=== PATIENT | female | born 1930 | race Caucasian/White ===

== ENCOUNTER 2017-05-28 14:06 | Emergency (ER) | payer MEDICARE, BC ==
[2017-05-28 15:13] LABS: #Basophils 0.1 thou/uL (0.0-0.2); #Eosinphils 0.3 thou/uL (0.0-0.7); #Lymphocytes 0.7 thou/uL (1.20-3.40); #Monocytes 0.8 thou/uL (0.11-0.59); #Neutrophils 6.8 thou/uL (1.40-6.50); %Basophils 1.3 % (0.0-1.0); %Eosinophils 3.5 % (0.0-10.0); %Lymphocytes 8.4 % (21.0-51.0); %Monocytes 8.6 % (0.0-10.0); Hematocrit 32.6 % (36.0-47.0); Mean Platelet Volume 5.9 fL (7.4-10.4); Red Blood Cell (RBC) Count 3.23 mill/uL (4.20-5.40); White Blood Cell (WBC) Count 8.7 thou/uL (4.8-10.8)
--- NOTE | 2017-05-28 15:23 | RAD ---
AP VIEW CHEST: Date: 05/28/17 HISTORY: Dyspnea. FINDINGS: Comparison made to previous exam from 10/18/16. AP view of chest demonstrates sternotomy wires. There is a prosthetic cardiac valve seen. A small rig ht-sided pleural effusion is seen. There is a moderate to large left-sided pleural effusion. IMPRESSION: Interval development of moderate to large left-sided pleural effusion and tiny right-sided pleural ef fusion. POS: [facility]
[2017-05-28 15:27] LABS: PTT 36.9 SEC (22.9-36.1); Prothrombin Time 21.4 SEC (12.0-14.7)
[2017-05-28 15:31] LABS: Lactic Acid - Sepsis 1.8 mmol/L (0.5-2.2)
[2017-05-28 15:36] LABS: ALT (SGPT) 15 U/L (8-55); AST (SGOT) 29 U/L (5-34); Alkaline Phosphatase 140 U/L (40-150); Anion Gap 11 mmol/L (10-20); BUN (Urea Nitrogen) 17 mg/dL (9.8-20.1); Bilirubin, Total 1.1 mg/dL (0.2-1.2); CK (CPK) 37 U/L (29-168); Calc. Creatinine Clearance 0 mL/min (70-130); Calcium 8.5 mg/dL (7.8-10.44); Carbon Dioxide 29 mmol/L (23-31); Chloride 102 mmol/L (98-107); Estimated GFR-MDRD 73; Globulin 3.2 g/dL (2.4-3.5); Lipase 31 U/L (8-78)
[2017-05-28 15:39] LABS: Troponin I 0.101 ng/mL (< 0.028)
[2017-05-28] MEDS ORDERED: Lidocaine 1% w/Epinephrine 1:100K 20 ML VIAL ONE (15:44)
[2017-05-28] MEDS ORDERED: Acetaminophen 325 MG TAB PO PRN (15:53)
[2017-05-28 16:11] LABS: Mode NC; Modified Allen's Test POSITIVE; Oxyhemoglobin 95.1 % (94.0-97.0); Sodium 137 mmol/L (135-148); Vent NO
--- NOTE | 2017-05-28 16:48 | CON ---
DATE OF EMERGENCY ROOM ASSESSMENT: 05/28/2017 PRIMARY CARE PHYSICIAN: Kristi Hicks M.D. CHIEF COMPLAINT: Shortness of breath. HISTORY OF PRESENT ILLNESS: Ms. Krishna is a pleasant 86-year-old lady who was seen at [facility] on 05/28/2017. She underwent aortic valve replacement on 05/04/2017 in [place]. Following the procedure, she was dis charged to [facility] in [place]. There, she was initially doing well, but subsequentl y started needing oxygen. Initially she was using oxygen on an as needed basis. Over the last coupl e of days, she has been hypoxic. Her oxygen saturations were reportedly in the 80s and she was there fore sent to the emergency room. She reports shortness of breath with exertion. She denies cough. She denies any chest pain. She de nies any nausea, vomiting, diarrhea, or abdominal pain. REVIEW OF SYSTEMS: The following complete review of systems was negative, unless otherwise mentioned in the HPI or below: Constitutional: Weight loss or gain, sense of well-being, ability to conduct usual activities, exerc ise tolerance. Skin/Breast: Rash, itching, changes in hair growth or loss, nail changes, breast lumps, tenderness, swelling, nipple discharge. Eyes: Vision, double vision, tearing, blind spots, pain. ENT/Mouth: Headaches (location, time of onset, duration, precipitating factors), vertigo, lightheade dness, injury. Vision, double vision, tearing, blind spots, pain, nose bleeding, colds, obstruction, discharge, dental difficulties, gingival bleeding, dentures, neck stiffness, pain, tenderness, masses in thyroid or other areas Cardiovascular: Precordial pain, substernal distress, palpitations, syncope, dyspnea on exertion, or thopnea, nocturnal paroxysmal dyspnea, edema, cyanosis, hypertension, heart murmurs, varicosities, ph lebitis, claudication. Respiratory: Pain, shortness of breath, wheezing, stridor, cough, hemoptysis, fever or night sweats Gastrointestinal: Poor appetite, dysphagia, indigestion, abdominal pain, heartburn, eructation, naus ea, vomiting, hematemesis, jaundice, constipation, or diarrhea, abnormal stools (sathish-colored, tarry, bloody, greasy, foul smelling), flatulence, hemorrhoids, recent changes in bowel habits. Genitourinary: Urgency, frequency, dysuria, nocturia, hematuria, polyuria, oliguria, unusual (or blade nge in) color of urine, stones, hesitancy, change in size of stream, dribbling, acute retention or in continence, libido, potency. Musculoskeletal: Pain, swelling, redness or heat of muscles or joints, limitation, of motion, muscul ar weakness, atrophy, cramps. Neurologic/Psychiatric: Convulsions, paralyses, tremor, incoordination, paraesthesias, difficulties with memory of speech, sensory or motor disturbances, or muscular coordination (ataxia, tremor), emot ional problems, anxiety, depression, previous psychiatric care, unusual perceptions, hallucinations. Allergy/Immunologic: Skin rash, anemia, bleeding tendency, polydipsia, polyuria, intolerance to heat or cold. 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 PAST SURGICAL HISTORY: Significant for aortic valve replacement, coronary artery bypass graft, right upper lobectomy, breast biopsy, hysterectomy, polypectomy via colonoscopy, supraventricular tachycar marianela ablation and right total hip replacement. ALLERGIES: Cough with POWER INHIBITORS, CODEINE, TRAMADOL. SOCIAL HISTORY: The patient does not smoke, drink alcohol or use recreational drugs. She used to li ve at home prior to the surgery, but is now at [facility]. FAMILY HISTORY: Significant for heart disease in several family members. CODE STATUS: I discussed her code status. She is DNR. CURRENT MEDICATIONS: Include atorvastatin 80 mg daily, warfarin as directed, hydroxyurea 500 mg 2 ti mes a week, folic acid 0.8 mg daily, Zetia 10 mg daily, metoprolol tartrate 12.5 mg 2 times a day, as pirin 81 mg daily, ferrous sulfate 325 mg 2 times a day, and acetaminophen p.r.n. PHYSICAL EXAMINATION: GENERAL: On examination, Ms. Krishna is awake and alert, not in acute distress. VITAL SIGNS: Blood pressure is 122/66, pulse is 85. She is breathing at rate of 19 and saturating 9 9% on 3 liters of oxygen. She is afebrile. She appears frail. EYES: No scleral icterus. No conjunctival pallor. ENT: Moist mucosal membranes, no oropharyngeal erythema or exudates. NECK: Supple, nontender, normal range of movement. Trachea is midline. RESPIRATORY: Accessory muscles of breathing are not active. Chest wall movements are symmetric bila terally. LUNGS: Examination shows absent breath sounds at the left base. CARDIOVASCULAR: S1 and S2 are heard, irregular and tachycardic. Peripheral pulses palpable. No car otid bruit, no pericardial rub. ABDOMEN: Soft, nontender, bowel sounds are heard. No hepatomegaly, no splenomegaly. NEUROLOGIC: Cranial nerves II-XII intact. Deep tendon reflexes are 2+. MUSCULOSKELETAL: Power is 5/5 in all 4 extremities, normal range of movement at all major extremity joints. SKIN: Surgical site is healing well. No rashes or subcutaneous nodules. LYMPHATICS: No cervical lymphadenopathy. PSYCHIATRIC: Normal mood, normal affect, patient is oriented to person, place, and time. IMAGING DATA AND LABORATORY DATA: Ms. Krishna's labs and investigations were reviewed. I reviewed h er electrocardiogram, which shows atrial fibrillation with rapid ventricular response. I also review ed her chest x-ray, which shows large left pleural effusion. Laboratory investigation show macrocyti c anemia with hemoglobin of 10.4, last known hemoglobin 14.9 on 03/14/2017, elevated platelet count o f 504,000, normal white count, INR 1.8, decreased albumin of 2.8, otherwise unremarkable comprehensiv e metabolic profile, indeterminate troponin I of 0.101 and elevated BNP of 850.9 ASSESSMENT AND PLAN: Ms. Krishna is a pleasant 86-year-old lady who was seen at [facility] on 05/28/2017. Her problem list includes: 1. Hypoxia: Most likely secondary to large left-sided pleural effusion. 2. Pleural effusion: Pulmonology Service has been consulted by emergency room physician. Plan is f or thoracentesis in the emergency room. 3. Atrial fibrillation with rapid ventricular response. The patient has received intravenous Cardiz em. I will consult Cardiology Service for their opinion and help with further management regarding t his issue as well as regarding pleural effusion, since this could be Nader syndrome. 4. Hypertension: Monitor vital signs and titrate antihypertensives as needed. 5. Coronary artery disease: Appears stable. Many thanks for allowing me to participate in your patient's care. Please feel free to contact me wi th any questions or concerns. LEVEL OF RISK: High. LEVEL OF COMPLEXITY: High.
[2017-05-28] MEDS ORDERED: Warfarin Sodium 1.25 MG HALF.TAB PO SCH (17:00)
[2017-05-28 18:09] LABS: Fluid, Protein 2.5 g/dL (Not Available)
--- NOTE | 2017-05-29 04:56 | CON ---
DATE OF CONSULTATION: 05/28/2017 HISTORY OF PRESENT ILLNESS: Ms. Krishna is an 86-year-old female who recently underwent aortic valve replacement per the family and a mitral valve ring repair. There are 3 daughters in the room that p rovided the majority of the history. She apparently had ultrasound guided thoracentesis after the pr ocedure. The daughter showed me a picture of bloody pericardial fluid that looks like 600-700 mL. She presented with shortness of breath with several days progression. She is anticoagulated with an INR of 1.8. She originally was scheduled for a TAVR evaluation, but she ended up undergoing aortic valve replacem ent. PAST MEDICAL HISTORY: 1. Remarkable for having stage I lung cancer that was an incidental finding 6 years ago, it has been resected by Dr. Pickett. She is felt to be a surgical cure. 2. History of coronary disease followed by Dr. Padilla. 3. History of bypass surgery in the past with 3 of 5 grafts being obtained per Dr. Padilla's note fr om 10/2016. They did not bypass her when she had her operation in [place]. 4. History of hepatitis C. 5. History of hypertension. 6. History of lipid disorder. 7. History of atrial fibrillation and SVT. ALLERGIES: She reports an intolerance to POWER INHIBITORS, CODEINE and TRAMADOL. SOCIAL HISTORY: She is nonsmoker, nondrinker. She has a distant history of tobacco. FAMILY HISTORY: Positive for coronary disease. No history of lung disease at an early age. REVIEW OF SYSTEMS: Only remarkable for shortness of breath, that has only been in the last 24 hours to any degree. Prior to that, she now admits that she was having more shortness of breath, but did n ot want to admit it, thought it would just pass. GENERAL: She is very pleasant, in no distress. VITAL SIGNS: Vital signs in the emergency room were stable. Respiratory rate was in the teens to lo w 20s. HEENT: Pupils are equal. Sclerae is anicteric. She is thin. CHEST: Her sternal incision appears to be healing. She has no cervical lymph nodes. Her left base is dull to percussion [address] She has clear lung mcdonald, otherwise. HEART: Regular rhythm. She has audible S1 and S2. ABDOMEN: Soft and nontender. EXTREMITIES: Without asymmetry. LABORATORY DATA: White count 8.7, hemoglobin 10.4, platelets 504,000. Sodium 137, potassium 4.8, ch loride 102, bicarb 29, BUN 17, creatinine 0.75. Review of chest radiograph shows a left effusion, pH 7.44, pO2 93. IMPRESSION: Post-pericardotomy effusion. Since this recurred. I would consider placing her on ster oids. She will go home on 40 mg a day for a week and then go to 20 mg a day. She sees Dr. Columba romero. She can follow up with him in 2 weeks with a chest radiograph. PLAN: Thoracentesis today, risk of bleeding, infection, lung collapse, and least likely were e xplained. Greater than 50% of the time was spent conferring with the nurse and the family at bedside as well as reviewing records and radiographs. This is a 50 minute consultation, independent of procedure performed.
--- NOTE | 2017-05-29 04:59 | OP ---
DATE OF PROCEDURE: 05/28/2017 PROCEDURE: Thoracentesis. MANAGER CLINICAL RESEARCH: Eugenio Aburto M.D. INDICATION: Postop pleural effusion after aortic valve replacement, left posterior hemithorax was cl eansed with chlorhexidine. 8 mL of 1% lidocaine was used to anesthetize the skin and the pleura. Fl uid was localized with a 22 gauge needle. A small incision was made with a #11 blade. An 8 Croatian catheter was inserted in the pleural space. 800 mL of serosanguineous pleural fluid was evacuated from the left pleural space. Pleural fluid glu cose was 110, protein 2.5, LDH 201. Fluid was sent for culture. Fluid was not sent for cytology, since this is a postoperative effusion that was not present on CT scan earlier this year. She will follow up with Dr. Waterman in 2 weeks. There is a possibility given the low protein and LDH that this effusion is related to an ongoing mitr al valve leak. She had her aortic valve replaced, but only mitral repair, so this may be contributin g to the effusion. If this recurs despite of the steroids that would be my concern and transthoracic or transesophageal echo probably needs to be performed. She had no evidence of pulmonary edema in t he other lung and her right lung was clear on exam as well.
[2017-05-29] MEDS ORDERED: Warfarin Sodium 2.5 MG TAB PO SCH (17:00)
== END 2017-05-28 18:56 | disposition home or self-care (01) ==
LOC: ERS 14:06
DX: J90 Pleural effusion, not elsewhere classified (principal); R09.02 Hypoxemia; I25.10 Atherosclerotic heart disease of native coronary artery without angina pectoris; I48.91 Unspecified atrial fibrillation; E78.5 Hyperlipidemia, unspecified; I10 Essential (primary) hypertension; Z85.118 Personal history of other malignant neoplasm of bronchus and lung; Z79.01 Long term (current) use of anticoagulants; Z79.82 Long term (current) use of aspirin; Z79.899 Other long term (current) drug therapy
CPT/HCPCS: 32554; 36415; 71010; 80053; 82553; 82805; 82945; 83605; 83615; 83690; 83880; 84157; 84484; 85025; 85610; 85730; 87040; 87070; 87205; 93005; 96374; J2001

== ENCOUNTER 2017-06-02 19:02 | Inpatient (IN) | payer MEDICARE, BC ==
[2017-06-02 19:43] LABS: #Eosinphils 0.1 thou/uL (0.0-0.7); #Lymphocytes 1.1 thou/uL (1.20-3.40); #Monocytes 1.4 thou/uL (0.11-0.59); %Basophils 0.1 % (0.0-1.0); %Lymphocytes 8.9 % (21.0-51.0); %Monocytes 11.1 % (0.0-10.0); %Neutrophils 78.9 % (42.0-75.0); Hemoglobin 10.9 g/dL (12.0-16.0); Mean Corpuscular HGB CONC 31.1 g/dL (32.0-36.0); Mean Corpuscular Hemoglobin 31.3 pg (27.0-31.0); Mean Platelet Volume 5.8 fL (7.4-10.4); Platelet Count 573 thou/uL (130-400); RBC Distribution Width 14.7 % (11.5-14.5); Red Blood Cell (RBC) Count 3.46 mill/uL (4.20-5.40); White Blood Cell (WBC) Count 12.7 thou/uL (4.8-10.8)
[2017-06-02 20:00] LABS: ALT (SGPT) 33 U/L (8-55); AST (SGOT) 43 U/L (5-34); Albumin 2.9 g/dL (3.4-4.8); Alkaline Phosphatase 147 U/L (40-150); Anion Gap 13 mmol/L (10-20); BUN (Urea Nitrogen) 25 mg/dL (9.8-20.1); Bilirubin, Total 0.7 mg/dL (0.2-1.2); CK (CPK) 62 U/L (29-168); Calc. Creatinine Clearance 0 mL/min (70-130); Calcium 8.6 mg/dL (7.8-10.44); Carbon Dioxide 26 mmol/L (23-31); Chloride 102 mmol/L (98-107); Estimated GFR-MDRD 71; Globulin 3.3 g/dL (2.4-3.5); Glucose 109 mg/dL (83-110); Lipase 50 U/L (8-78); Potassium 4.3 mmol/L (3.5-5.1); Protein, Total 6.2 g/dL (6.0-8.3); Sodium 137 mmol/L (136-145)
[2017-06-02 20:04] LABS: CKMB 2.3 ng/mL (0-6.6); Troponin I 0.061 ng/mL (< 0.028)
--- NOTE | 2017-06-02 22:01 | RAD ---
AP VIEW OF THE CHEST 05/23/17 INDICATION: History of difficulty breathing with atrial fibrillation and hypertension and hypoxia. COMPARISON: Prior exam dated 05/28/17. FINDINGS: There is persistent cardiomegaly and pulmonary vascular congestion. Left sided pleural effusion is de creased in size, now moderate in severity. There is a persistent small right pleural effusion. Mild i nterstitial edema is again seen bilaterally. Valvular prosthesis and sternotomy changes are similar. No pneumothorax is evident. IMPRESSION: Persistent changes of CHF or volume overload with some improvement in the size of a left sided pleura l effusion when compared to the most recent comparison dated 05/28/17. POS: [facility]
[2017-06-02] MEDS ORDERED: Furosemide 40 MG/4 ML VIAL ONE (23:07)
[2017-06-03] MEDS ORDERED: Diltiazem HCl SR 60 mg Capsule PO SCH (03:00)
[2017-06-03 04:11] VITALS: BMI 22.8
[2017-06-03] MEDS ORDERED: Artificial Tears 18 DROP/0.9 ML EA EYE PRN (08:26)
[2017-06-03] MEDS ORDERED: Ondansetron ODT 4 MG TAB PO PRN (08:26)
[2017-06-03] MEDS ORDERED: Senokot 8.6 MG TAB PO PRN (08:26)
[2017-06-03] MEDS ORDERED: Ondansetron HCl/PF 4 MG/2 ML Vial IVP PRN (08:26)
[2017-06-03] MEDS ORDERED: Loratadine 10 MG TAB PO PRN (08:26)
[2017-06-03] MEDS ORDERED: Sodium Chloride 0.65% Nasal 44 ML BOT EA NARE PRN (08:26)
[2017-06-03] MEDS ORDERED: Acetaminophen 325 MG TAB PO PRN (08:26)
[2017-06-03] MEDS ORDERED: Loperamide HCl 2 MG CAP PO PRN (08:26)
[2017-06-03] MEDS ORDERED: Chloraseptic Spray 180 ml Bottle PO PRN (08:26)
[2017-06-03] MEDS ORDERED: Milk Of Magnesia 30 ML UDCUP PO PRN (08:26)
[2017-06-03] MEDS ORDERED: Eucerin (Mineral Oil/Petrolatum,White) 30 gm Jar TOP PRN (08:26)
[2017-06-03] MEDS ORDERED: Labetalol HCl 100 MG/20 ML VIAL SLOW IVP PRN (08:26)
[2017-06-03] MEDS ORDERED: Mag-Al 1200 mg/1200 mg/30 ML UDCUP PO PRN (08:26)
[2017-06-03] MEDS ORDERED: cefTRIAXone\\ROCEPHIN 1 GM in Sodium Chloride 0.9% 100 ML IVPB SCH (08:30)
[2017-06-03] MEDS ORDERED: Metoprolol Tartrate 25 MG TAB PO SCH (09:00)
[2017-06-03] MEDS: cefTRIAXone\\ROCEPHIN 1 GM, Syringe 0.4 ML in Sterile Water 9.6 ML SLOW IVP SCH (10:30)
[2017-06-03] MEDS: Cholecalciferol (Vitamin D3) 400 UNITS TAB PO SCH (10:30)
[2017-06-03] MEDS: guaiFENesin ER 600 MG TAB PO SCH ×2 (10:31→20:58)
[2017-06-03] MEDS: Saccharomyces boulardii 250 MG CAP PO SCH (10:31)
[2017-06-03] MEDS: Potassium Chloride 20 MEQ TAB PO SCH (10:31)
[2017-06-03] MEDS: Folic Acid 1 MG TAB PO SCH (10:31)
[2017-06-03] MEDS: Famotidine 20 MG TAB PO SCH ×2 (10:31→20:58)
[2017-06-03] MEDS: Calcium Carbonate + Vit D 1 TAB PO SCH (10:31)
[2017-06-03] MEDS: Cyanocobalamin (Vitamin B-12) 1,000 MCG TAB PO SCH (10:31)
[2017-06-03] MEDS: Ferrous Sulfate 325 MG TAB PO SCH ×2 (10:32→20:57)
[2017-06-03] MEDS: Aspirin 81 mg Enteric Coated Tablet PO SCH (10:32)
[2017-06-03] MEDS: Diltiazem 125 MG in Sodium Chloride 0.9% 100 ML IVPB SCH (11:05)
--- NOTE | 2017-06-03 11:16 | HP ---
PRIMARY CARE PHYSICIAN: Dr. Hicks. REASON FOR ADMISSION: Acute onset of shortness of breath at assisted. HISTORY OF PRESENT ILLNESS: An 86-year-old female who has underlying history of coronary artery dise ase requiring CABG as well as aortic valve replacement on chronic anticoagulation who lives at the [facility]. Patient was recently admitted in our hospital and she was discharged to [facility] on 05/28/2017. It seems like during previous admission, patient required thoracentesis. The patient was doing well up until last night and all of a sudden, she had shortness of breath. She was not able to take deep breath and she was struggling with breathing. She was hypoxic and required ox ygen. Patient was given Lasix 80 mg p.o. at assisted prior to arrival. Patient required 2 liter nasal cannula oxygen and her oxygen saturation remained normal on the route. This patient has incre asing lower extremity edema for the last 2-3 weeks, which is gradually getting worse. Patient does h ave orthopnea. She does have cough productive of yellowish white sputum. She was also feeling palpi tations and dizziness. Today, the patient was found with atrial fibrillation with RVR. She was afebrile, but she was hypert ensive. Her routine blood tests showed elevated BNP, which was more than elevated from baseline and troponin was indeterminant range. She denies any UTI symptoms. She denies any constipation, diarrhe a, melena, hematochezia. She denies any sore throat. She denies any runny nose. She denies any flu -like illness. This patient has out of hospital DNR order at the [facility] and I confirmed with the pat ient that she wanted to continue DNR order while in hospital as well. When I saw this patient, at th at time, patient was in atrial fibrillation with RVR. She was still short of breath. CURRENT HOME MEDICATIONS: Tylenol 1 gram p.o. q.6 hours p.r.n., aspirin 81 mg p.o. daily, Lipitor 80 mg p.o. at bedtime, calcium with vitamin D 1 tablet p.o. daily, vitamin D3 400 units p.o. daily, Zet ia 10 mg p.o. daily, Ferrous sulfate 325 mg p.o. daily, folic acid 0.8 mg p.o. daily, hydroxyurea 500 mg p.o. on Monday, Monday, metoprolol 12.5 mg twice daily, potassium chloride 20 mEq p.o. daily, prednisone 20 mg p.o. daily, Florastor 250 mg p.o. daily, warfarin 2 mg p.o. daily. PAST MEDICAL HISTORY: Coronary artery disease required CABG. The patient is following Dr. Carrera. Her last cardiac catheterization was in 06/2016. which showed all grafts were patent. She does hav e a history of left main and three-vessel coronary artery disease and she also has underlying ventric ular dysfunction and severe aortic regurgitation and mitral regurgitation, history of chronic hepatit is C, history of adenocarcinoma of lung and required resection of lobe, hypertension, dyslipidemia, p aroxysmal atrial fibrillation on chronic anticoagulation with warfarin, history of SVT required ablat ion, lower extremity chronic venous insufficiency. PAST SURGICAL HISTORY: CABG, right upper lobe lobectomy, breast biopsy, hysterectomy, polypectomy wi th colonoscopy, ablation for SVT, right total hip replacement. ALLERGIES: Patient is allergic to POWER INHIBITOR, CODEINE and TRAMADOL. SOCIAL HISTORY: Patient currently lives at [facility]. No history of tobacco, alcohol o r illicit drug abuse. FAMILY HISTORY: Mother has history of coronary artery disease. No strong family history of cancer o r stroke. REVIEW OF SYSTEMS: The following complete review of systems was negative, unless otherwise mentioned in the HPI or below: Constitutional: Weight loss or gain, ability to conduct usual activities. Skin: Rash, itching. Eyes: Double vision, pain. ENT/Mouth: Nose bleeding, neck stiffness, pain, tenderness. Cardiovascular: Palpitations, dyspnea on exertion, orthopnea. Respiratory: Shortness of breath, wheezing, cough, hemoptysis, fever or night sweats. Gastrointestinal: Poor appetite, abdominal pain, heartburn, nausea, vomiting, constipation, or diarr hea. Genitourinary: Urgency, frequency, dysuria, nocturia. Musculoskeletal: Pain, swelling. Neurologic/Psychiatric: Anxiety, depression. Allergy/Immunologic: Skin rash, bleeding tendency. Please see my HPI for pertinent positives and negatives. All other review of systems reviewed and ne gative except as mentioned in the HPI. PAST PSYCHIATRIC HISTORY: Reviewed and negative. EMERGENCY ROOM COURSE: Patient is given Cardizem 60 mg p.o. to Cardizem 5 mg IV push, then 10 mg IV push and then Lasix 40 mg IV push was given. PHYSICAL EXAMINATION: VITAL SIGNS: Currently, blood pressure 128/84, pulse 120-130 variable, respiratory rate 24, temperat ure 98.5, saturation 98% on 2 liter oxygen, weight 57.1 kilograms. GENERAL: Patient is currently alert, awake, appears short of breath, no obvious acute distress. HEAD: Normocephalic, atraumatic. EYES: Pupils round, reactive to light. Extraocular muscles intact. ENT: Oropharynx within normal limits. Moist mucous membranes. No oral lesions. No pharyngeal eryt antwon or exudate. NECK: Supple, no thyromegaly, no carotid bruit, slightly elevated JVD. LUNGS: Bibasilar rales, air entry reduced noted. CARDIAC: S1, S2 irregularly irregular. Systolic murmur present in parasternal area and apex. No ga llop, no rub. ABDOMEN: Soft, bowel sounds present, nontender, nondistended. No organomegaly, no mass, no suprapub ic tenderness. BACK: Unremarkable, no CVA tenderness. EXTREMITIES: Upper extremity, passive movement of all joints are normal. Lower extremity, bilateral +2 pitting edema noted. Good peripheral pulsation. SKIN: No skin rash. HEMATOLOGICAL: No lymphadenopathy. PSYCHIATRIC: Normal affect. NEUROLOGIC: Nonfocal examination. SIGNIFICANT LABORATORY DATA AND IMAGIN. EKG showing atrial fibrillation with rapid ventricular response, nonspecific ST-T changes. Chest x-ray showing bilateral small pleural effusion and interstitial edema noted bilaterally. 2. CBC: WBC 12.7, hemoglobin 10.9, MCV 101.0, platelet 573. BMP shows sodium 137, potassium 4.3, c hloride 102, carbon dioxide 26, BUN 25, creatinine 0.77, glucose 109, calcium 8.6. 3. LFT: AST 43, ALT 33, alkaline phosphatase 147, albumin 2.9, lipase 50, CK-MB 2.3, troponin I 0.0 61, BNP 1154. ASSESSMENT AND PLAN: 1. Acute on chronic systolic and diastolic congestive heart failure exacerbation. This patient has dyspnea, orthopnea, edema of lower extremity, elevated BNP and chest x-ray finding of interstitial ed narinder and pleural effusion. She has most recent echocardiography showed EF 45% and she has underlying valvular heart disease. She is not a candidate for any valve replacement. At this point, her precip itation of congestive heart failure is due to valvular heart disease and uncontrolled hypertension. Patient will require admission. She will be treated with Lasix 40 mg IV b.i.d. Patient is requestin g Kathleen catheter, so we will place Kathleen catheter. We will monitor input and output chart, daily rick t. Cardiac rehabilitation will be consulted. Cardiology will be consulted. We will monitor on te lemetry floor. 2. Atrial fibrillation with rapid ventricular response. We will start Cardizem drip and titrate Car dizem drip as needed. We will continue chronic anticoagulation with warfarin. 3. Chronic anticoagulation with warfarin. We will monitor PT/INR on daily basis and we will titrate the warfarin dose based on INR. 4. Severe mitral regurgitation, moderate aortic regurgitation and tricuspid regurgitation based on p rior echocardiography. This patient has been evaluated for valve replacement at [place], but the [facility] ent is not a good candidate for any valve replacement and because of that, this patient is at [facility] for recurrent admission for congestive heart failure exacerbation. 5. Microcytic anemia, likely due to hydroxyurea. We will continue with folic acid as per home dosag e and we will add vitamin B12 therapy as well. We will continue hydroxyurea 500 mg twice a week. 6. Coronary artery disease. We will continue aspirin 81 mg p.o. daily, Lipitor 80 mg p.o. at bedtim e, Zetia 10 mg p.o. at bedtime, metoprolol 12.5 mg twice daily. 7. Elevated troponin, likely due to demand ischemia. 8. Cough with sputum, suspecting from underlying bronchitis. At this point, we will check for flu s creen and I will give her empiric Rocephin 1 gram q.24 hours while in hospital and provide DuoNeb the rapy q.6 hours and we will also add Mucinex 600 mg twice daily. 9. Deep venous thrombosis prophylaxis. The patient is already on warfarin therapy. 10. Gastrointestinal prophylaxis. Pepcid 20 mg p.o. b.i.d. 11. Code status. I have confirmed the DNR status with the patient and the patient has out of hospit al DNR. Disposition and plan based on clinical course. ADDITIONAL INFORMATION: This patient is not on POWER inhibitor and ARB in view of systolic heart failu re, because of the patient's allergy to POWER INHIBITORS. During this admission, we will change her me toprolol to Coreg 3.125 mg twice daily and if blood pressure permits, then we will also consider mina ng losartan if needed. Plan of care extensively discussed with the patient in detail.
[2017-06-03] MEDS ORDERED: Digoxin 0.5 MG/2 ML AMP SLOW IVP SCH ×2 (11:30→13:30)
--- NOTE | 2017-06-03 12:05 | CON ---
DATE OF CONSULTATION: 06/03/2017 REASON FOR CONSULTATION: Congestive heart failure. HISTORY OF PRESENT ILLNESS: Ms. Calles is a very pleasant 86-year-old patient of Dr. Carrera, who has recently undergone repeat surgery with aortic valve replacement and mitral valve repair, who was admitted to the hospital with difficulty breathing and congestive heart failure. Ms. Calles has a history of previous bypass surgery and severe aortic insufficiency. She ultimately underwent cardiac catheterization and then surgery in [place]. She says she has been having some dif ficulty breathing since then. She came to the hospital with increasing difficulty breathing on 05/28 and was treated at that time. She came back to the hospital with difficulty breathing today an d is receiving intravenous Lasix and beginning to feel better. The patient states she has been in atrial fibrillation, longstanding. No chest pain. She also had has increasing lower extremity edema. MEDICATIONS: At home, 1. Hydroxyurea. 2. Atorvastatin. 3. Zetia. 4. Iron. 5. Aspirin. 6. Metoprolol. 7. Warfarin. 8. Prednisone. 9. Potassium. ALLERGIES: TRAMADOL and CODEINE. REVIEW OF SYSTEMS: CONSTITUTIONAL: Positive for weakness and fatigue. VISION: No changes. HEARING: No changes. PULMONARY: Positive for shortness of breath and cough. CARDIAC: Positive for shortness of breath and cough. No chest pain. GASTROINTESTINAL: No nausea, vomiting, diarrhea. SKIN: No rashes. NEUROLOGIC: No unilateral weakness or numbness. PSYCHIATRIC: No unusual depression or anxiety. HEMATOLOGIC: No unusual bruising. GENITOURINARY: No burning with urination. MUSCULOSKELETAL: No unusual joint pains. PHYSICAL EXAMINATION: GENERAL: A pleasant elderly woman, in no distress. VITAL SIGNS: Blood pressure 166/83, pulse is 130 and it is irregular. EYES: Sclerae nonicteric. Mouth mucous membranes moist. NECK: Supple, no lymphadenopathy. LUNGS: Some rhonchi and some decreased breath sounds at the bases. CARDIOVASCULAR: She is tachycardic. Soft systolic murmur, left mid sternal border. No diastolic mu rmur, no S3. ABDOMEN: Soft, nontender. EXTREMITIES: No clubbing or cyanosis. There is moderate bilateral edema. SKIN: Warm and dry. PERTINENT LABORATORY: Hemoglobin is 10.9, creatinine is 0.77. Troponin 0.061. BNP 1154. The EKG shows atrial fibrillation with a rapid rate. ASSESSMENT: 1. Congestive heart failure, probably diastolic, acute on chronic. 2. Previous bypass surgery. 3. Recent aortic valve replacement, mitral valve repair. PLAN: 1. She is receiving intravenous diuretics. 2. We will add digoxin. 3. Continue Coumadin and check prothrombin time tomorrow morning. Further recommendations after hos pital course. Dr. Berry will see the patient tomorrow and then Dr. Carrera will resume care on [facility].
--- NOTE | 2017-06-03 13:28 | CON ---
DATE OF CONSULTATION: 06/03/2017 CONSULTING PHYSICIAN: Hospitalist group. REASON FOR CONSULTATION: Family request. HISTORY OF PRESENT ILLNESS: The patient is an 86-year-old female, who was brought to the hospital last night with increasing shortness of breath over 2-3 days prior to admission. She had been seen by my partner, Dr. Aburto. On [place], she had a pleural effusion on the left. She underwent a thoracentesis, which showed a transudate. She recently had open heart surgery with aortic valve replacement and mitral valve repair. She denies any chest pain. She has had no fever or chills. PAST MEDICAL HISTORY: 1. See above. Additionally, she has coronary artery disease, left ventricular dysfunction. 2. Chronic hepatitis C. 3. 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 4. Hypertension. 5. Hyperlipidemia. 6. Paroxysmal atrial fibrillation on long-term anticoagulation. 7. Supraventricular tachycardia. PAST SURGICAL HISTORY: 1. Coronary bypass grafting surgery. 2. Aortic valve replacement. 3. Mitral valve repair. 4. Right upper lobectomy. 5. Breast biopsy. 7. Hysterectomy. 8. Polypectomies. 9. Colonoscopy. 10. Right total hip replacement. ALLERGIES: POWER INHIBITORS, CODEINE and TRAMADOL. SOCIAL HISTORY: Does not smoke, does not consume alcohol, does not use illicit drugs. She lives in a fci. FAMILY MEDICAL HISTORY: Remarkable for coronary artery disease. REVIEW OF SYSTEMS: Twelve-point review of systems is negative with the following exceptions, she has shortness of breath, cough, and congestion. MEDICATIONS: Hydroxyurea, atorvastatin, Zetia, iron, aspirin, metoprolol, warfarin, prednisone and potassium. PHYSICAL EXAMINATION: VITAL SIGNS: Temperature 97.8, pulse 131, respirations 20, O2 sat 100%, blood pressure 166/83. GENERAL: She is in no distress. HEENT: Pupils react. Sclerae are anicteric. Oropharynx clear. NECK: No JVD. CARDIOVASCULAR: S1, S2 irregularly irregular and tachycardic. LUNGS: She has diminished breath sounds in both bases, somewhat greater on the left than the right. She has dullness to percussion on the bottom 1/4 of the left lung field. ABDOMEN: Soft, nontender, no hepatosplenomegaly. EXTREMITIES: No clubbing, cyanosis or edema. SKIN: Shows no lesions. NEUROLOGIC: Moves all 4 extremities. She is alert and oriented x3. LABORATORY DATA: White blood cell count 12.7, hematocrit 35 and platelet count 573. Sodium 137, potassium 4.3, chloride 102, CO2 26, BUN 25, creatinine 0.7, glucose 109. I reviewed her chest x-ray, it shows small left pleural effusion, small right pleural effusion, left pleural effusion, much better than 2 weeks ago. BNP level is 1154. ASSESSMENT: 1. Acute congestive heart failure -- systolic. 2. Chronic atrial fibrillation. 3. Pleural effusions. PLAN: The pleural effusions do not require thoracentesis at this time. She should continue with diuresis as you are doing with rate control the atrial fibrillation. No other recommendations at this time. 50 minutes are spent at the patient's bedside and on the patient's unit MTDD
[2017-06-03] MEDS: Furosemide 40 MG/4 ML VIAL SLOW IVP SCH (15:25)
[2017-06-03 16:50] LABS: Bilirubin Negative (Negative); Blood, Urine Negative (Negative); Clarity CLOUDY (Clear); Glucose, Urine (Dipstick) Negative (Negative); Leukocyte Negative (Negative); Nitrite Negative (Negative); Protein, Urine (Dipstick) 30 mg/dL (Neg-Trace); Specific Gravity, Urine 1.024 (1.002-1.036)
[2017-06-03 16:53] LABS: Bacteria/HPF None Seen HPF (None Seen); Pathc Cast-AUWi Flag 1.89 (0-2.49); RBC/HPF 0-3 HPF (0-3); WBC/HPF 0-3 HPF (0-3); Yeast-AUWi Flag 17.6 (0-25.0)
[2017-06-03 17:03] LABS: Crystals/HPF 1+ AMORPH URATES HPF (Negative); Hyaline Casts/LPF 0-3 HYALINE CAST LPF (0-3 Hyaline); Renal Epithelial None Seen HPF (0-3); Transitional Epithelial 0-3 HPF (0-3)
[2017-06-03] MEDS: Warfarin Sodium 2 MG TAB PO SCH (18:16)
[2017-06-03] MEDS: Carvedilol 3.125 MG TAB PO SCH (18:17)
[2017-06-03] MEDS: Atorvastatin Calcium 40 MG TAB PO SCH (20:57)
[2017-06-03] MEDS: Ezetimibe 10 MG TAB PO SCH (20:58)
[2017-06-04] MEDS: Diltiazem 125 MG in Sodium Chloride 0.9% 100 ML IVPB SCH (06:11)
[2017-06-04] MEDS: Furosemide 40 MG/4 ML VIAL SLOW IVP SCH ×2 (06:11→15:25)
[2017-06-04 06:40] LABS: INR-International Normal Ratio 1.6; Prothrombin Time 19.2 SEC (12.0-14.7)
[2017-06-04 06:55] LABS: ALT (SGPT) 18 U/L (8-55); AST (SGOT) 23 U/L (5-34); Albumin 2.2 g/dL (3.4-4.8); Alkaline Phosphatase 92 U/L (40-150); Anion Gap 11 mmol/L (10-20); BUN (Urea Nitrogen) 21 mg/dL (9.8-20.1); Bilirubin, Total 1.4 mg/dL (0.2-1.2); Calc. Creatinine Clearance 57 mL/min (70-130); Calcium 8.1 mg/dL (7.8-10.44); Carbon Dioxide 31 mmol/L (23-31); Chloride 96 mmol/L (98-107); Estimated GFR-MDRD 82; Globulin 2.5 g/dL (2.4-3.5); Glucose 92 mg/dL (83-110); Magnesium 1.8 mg/dL (1.6-2.6); Potassium 3.8 mmol/L (3.5-5.1); Protein, Total 4.7 g/dL (6.0-8.3); Sodium 134 mmol/L (136-145); Uric Acid 2.7 mg/dL (2.6-6.0)
[2017-06-04 06:56] LABS: CKMB 0.6 ng/mL (0-6.6); Troponin I 0.055 ng/mL (< 0.028)
[2017-06-04 08:00] LABS: Acanthocytes SLIGHT = 1-5 cells (100X) (None Seen); Band 2 % (5-11); Eosinophils 1 % (0-10); Hemoglobin 8.9 g/dL (12.0-16.0); Lymphocytes 4 % (21-51); MDiff Complete? YES; Mean Corpuscular HGB CONC 31.2 g/dL (32.0-36.0); Mean Corpuscular Hemoglobin 31.1 pg (27.0-31.0); Mean Corpuscular Volume 99.9 fl (81.0-99.0); Metamyelocyte 1 % (0-0); Monocytes 2 % (0-10); Neutrophil 90 % (42-75); PLT Morphology Comment Appears Adequate; Platelet Count 361 thou/uL (130-400); RBC Distribution Width 14.5 % (11.5-14.5); Red Blood Cell (RBC) Count 2.85 mill/uL (4.20-5.40); White Blood Cell (WBC) Count 12.7 thou/uL (4.8-10.8)
--- NOTE | 2017-06-04 09:42 | PDOC.PN ---
- Subjective Encounter Start Date: 06/04/17 Encounter Start Time: 07:10 -: old records requested/rev pt has cough with sputum, rate controlled, still has dyspnea, no fever - Objective Resuscitation Status: Resuscitation Status DNR:Do Not Resuscitate MAR Reviewed: Yes Vital Signs & Weight: Vital Signs (12 hours) Temp Pulse Resp BP Pulse Ox 06/04/17 07:27 89 20 96 06/04/17 04:00 98.0 F 75 18 124/60 98 06/04/17 00:00 98.3 F 83 20 125/62 97 06/03/17 23:52 96 Weight Weight 132 lb 4.8 oz I&O: 06/03/17 06/04/17 06/05/17 06:59 06:59 06:59 Intake Total 900 Output Total 1900 Balance -1000 Result Diagrams: 06/04/17 06:01 06/04/17 06:01 EKG Reviewed by me: Yes (afib) Phys Exam - Physical Examination Constitutional: NAD HEENT: PERRLA, moist MMs, sclera anicteric Neck: no JVD, supple Respiratory: no wheezing, no rhonchi basal rales and reduced air entry Cardiovascular: no rub, irregular SM+ Gastrointestinal: soft, non-tender, no distention, positive bowel sounds Musculoskeletal: no edema, pulses present Neurological: non-focal, moves all 4 limbs Lymphatic: no nodes Psychiatric: normal affect, A&O x 3 Skin: no rash, normal turgor Dx/Plan (1) Acute on chronic combined systolic and diastolic CHF (congestive heart failure) Code(s): I50.43 - ACUTE ON CHRONIC COMBINED SYSTOLIC AND DIASTOLIC HRT FAIL Status: Acute (2) Atrial fibrillation with RVR Code(s): I48.91 - UNSPECIFIED ATRIAL FIBRILLATION Status: Acute Comment: now rate controlled (3) Elevated troponin Code(s): R74.8 - ABNORMAL LEVELS OF OTHER SERUM ENZYMES Status: Acute Comment: demand ischemia (4) Aortic regurgitation Code(s): I35.1 - NONRHEUMATIC AORTIC (VALVE) INSUFFICIENCY Status: Chronic Comment: with recent h/o AVR (5) CAD (coronary artery disease) Code(s): I25.10 - ATHSCL HEART DISEASE OF [place] CORONARY ARTERY W/O ANG PCTRS Status: Chronic Comment: Chronic, stable (6) H/O aortic valve replacement Code(s): Z95.2 - PRESENCE OF PROSTHETIC HEART VALVE Status: Chronic (7) H/O mitral valve repair Code(s): Z98.890 - OTHER SPECIFIED POSTPROCEDURAL STATES Status: Chronic (8) HTN (hypertension) Code(s): I10 - ESSENTIAL (PRIMARY) HYPERTENSION Status: Chronic Qualifiers: (9) Hepatitis C Code(s): B19.20 - UNSPECIFIED VIRAL HEPATITIS C WITHOUT HEPATIC COMA Status: Chronic Qualifiers: (10) Hx of cancer of lung Code(s): Z85.118 - PERSONAL HISTORY OF MALIGNANT NEOPLASM OF BRONCHUS AND LUNG Status: Chronic (11) Hx of coronary artery bypass graft Status: Chronic (12) Macrocytic anemia Code(s): D53.9 - NUTRITIONAL ANEMIA, UNSPECIFIED Status: Chronic (13) Severe tricuspid regurgitation Code(s): I07.1 - RHEUMATIC TRICUSPID INSUFFICIENCY Status: Chronic Comment: (14) Physical deconditioning Code(s): R53.81 - OTHER MALAISE Status: Acute (15) Acute bronchitis Code(s): J20.9 - ACUTE BRONCHITIS, UNSPECIFIED Status: Acute - Plan cont current plan of care, plan discussed w/ family, continue antibiotics, PT/OT , home health care social worker, respiratory therapy * continue lasix for CHF * continue cardizem drip for afib * continue rocephin , duoneb for bronchitis * medication reviewed as below * symptomatic treatment * will adjust meds * cardiology and pulmonary following * discussed with daughter * will need to back to [facility] on discharge. * monitor INR and continue warfarin Review of Systems - Review of Systems Constitutional: weakness. negative: fever, chills, sweats, malaise, other Respiratory: Cough, SOB with Excertion, Sputum. negative: Dry, Shortness of Breath, Hemoptysis, Pleuritic Pain, Wheezing Cardiovascular: negative: chest pain, palpitations, orthopnea, paroxysmal nocturnal dyspnea, edema, light headedness, other Gastrointestinal: negative: Nausea, Vomiting, Abdominal Pain, Diarrhea, Constipation, Melena, Hematochezia, Other Genitourinary: negative: Dysuria, Frequency, Incontinence, Hematuria, Retention , Other Musculoskeletal: negative: Neck Pain, Shoulder Pain, Arm Pain, Back Pain, Hand Pain, Leg Pain, Foot Pain, Other Skin: negative: Rash, Lesions, Brett, Bruising, Other - Medications/Allergies Allergies/Adverse Reactions: Allergies Allergy/AdvReac Type Severity Reaction Status Date / Time tramadol Allergy Intermediate Verified 05/31/16 12:12 codeine Allergy Mild Emesis Verified 05/31/16 12:12 Medications: Current Medications Acetaminophen (Tylenol) 650 mg PO Q4H PRN PRN Reason: Headache/Fever or Pain Al Hydroxide/Mg Hydroxide (Maalox) 30 ml PO Q6H PRN PRN Reason: Heartburn or Indigestion Albuterol/Ipratropium (Duoneb) 3 ml NEB [id number] [facility] Last Admin: 06/04/17 07:27 Dose: 3 ml Artificial Tears (Tears Naturale) 0 drop EA EYE PRN PRN PRN Reason: Dry Eyes Aspirin (Ecotrin) 81 mg PO DAILY [facility] Last Admin: 06/03/17 10:32 Dose: 81 mg Atorvastatin Calcium (Lipitor) 80 mg PO [facility] Last Admin: 06/03/17 20:57 Dose: 80 mg Calcium/Vitamin D (Caltrate 600 + Vit D) 1 tab PO DAILY [facility] Last Admin: 06/03/17 10:31 Dose: 1 tab Carvedilol (Coreg) 3.125 [facility] Last Admin: 06/03/17 18:17 Dose: 3.125 mg Cholecalciferol (Vitamin D) 400 units PO DAILY [facility] Last Admin: 06/03/17 10:30 Dose: 400 units Cyanocobalamin (Vitamin B-12) 1,000 mcg PO DAILY [facility] Last Admin: 06/03/17 10:31 Dose: 1,000 mcg Ezetimibe (Zetia) 10 mg PO [facility] Last Admin: 06/03/17 20:58 Dose: 10 mg Famotidine (Pepcid) 20 mg PO BID [facility] Last Admin: 06/03/17 20:58 Dose: 20 mg Ferrous Sulfate (Feosol) 325 mg PO BID [facility] Last Admin: 06/03/17 20:57 Dose: 325 mg Folic Acid (Folvite) 1 mg PO DAILY [facility] Last Admin: 06/03/17 10:31 Dose: 1 mg Furosemide (Lasix) 40 mg SLOW IVP 0600,1400 [facility] Last Admin: 06/04/17 06:11 Dose: 40 mg Guaifenesin (Robitussin Sf) 200 mg PO Q4H PRN PRN Reason: Cough Guaifenesin (Mucinex) 600 mg PO Q12HR [facility] Last Admin: 06/03/17 20:58 Dose: 600 mg Hydroxyurea (Hydrea) 500 mg PO MoWe@0900 [facility] Diltiazem HCl 125 mg/ Sodium (Chloride) 125 mls @ 5 mls/hr IVPB INF TRISTEN; 5 MG/ HR PRN Reason: Protocol Last Admin: 06/04/17 06:11 Dose: 125 mls Ceftriaxone Sodium 1 gm/ (Syringe 0.4 ml/ Sterile Water) 10 mls @ 120 mls/hr SLOW IVP DAILY [facility] Last Admin: 06/03/17 10:30 Dose: 10 mls Labetalol HCl (Normodyne) 10 mg SLOW IVP Q4H PRN PRN Reason: Systolic BP > 180 Loperamide HCl (Imodium) 2 mg PO PRN PRN PRN Reason: Diarrhea/Loose Stools Loratadine (Claritin) 10 mg PO DAILYPRN PRN PRN Reason: Sinus Symptoms Losartan Potassium (Cozaar) 25 mg PO DAILY [facility] Magnesium Hydroxide (Milk Of Magnesium) 30 ml PO DAILYPRN PRN PRN Reason: Constipation Mineral Oil/White Petrolatum (Eucerin Cream) 0 gm TOP BIDPRN PRN PRN Reason: Dry Skin Ondansetron HCl (Zofran Odt) 4 mg PO Q6H PRN PRN Reason: Nausea/Vomiting Ondansetron HCl (Zofran) 4 mg IVP Q6H PRN PRN Reason: Nausea/Vomiting Phenol (Chloraseptic [place] 180 Ml Bot) 0 ml PO PRN PRN PRN Reason: Sore Throat Potassium Chloride (K-Dur) 20 meq PO DAILY [facility] Last Admin: 06/03/17 10:31 Dose: 20 meq Prednisone (Prednisone) 20 mg PO QAM-WM [facility] Stop: 06/11/17 08:01 Saccharomyces Boulardii (Florastor) 250 mg PO DAILY [facility] Last Admin: 06/03/17 10:31 Dose: 250 mg Senna (Senokot) 2 tab PO HSPRN PRN PRN Reason: Constipation Sodium Chloride ([place] Nasal [place] 0.65%) 0 ml EA NARE QIDPRN PRN PRN Reason: Nasal Congestion Warfarin Sodium (Coumadin) 2 mg PO 1700 [facility] Last Admin: 06/03/17 18:16 Dose: 2 mg
[2017-06-04] MEDS: Losartan Potassium 25 MG TAB PO SCH (13:01)
[2017-06-04] MEDS: Saccharomyces boulardii 250 MG CAP PO SCH (13:01)
[2017-06-04] MEDS: Cholecalciferol (Vitamin D3) 400 UNITS TAB PO SCH (13:01)
[2017-06-04] MEDS: Potassium Chloride 20 MEQ TAB PO SCH (13:02)
[2017-06-04] MEDS: Cyanocobalamin (Vitamin B-12) 1,000 MCG TAB PO SCH (13:02)
[2017-06-04] MEDS: Ferrous Sulfate 325 MG TAB PO SCH ×2 (13:02→20:42)
[2017-06-04] MEDS: Carvedilol 3.125 MG TAB PO SCH ×2 (13:02→18:50)
[2017-06-04] MEDS: Calcium Carbonate + Vit D 1 TAB PO SCH (13:02)
[2017-06-04] MEDS: predniSONE 20 MG TAB PO SCH (13:03)
[2017-06-04] MEDS: Famotidine 20 MG TAB PO SCH ×2 (13:03→20:43)
[2017-06-04] MEDS: Aspirin 81 mg Enteric Coated Tablet PO SCH (13:03)
[2017-06-04] MEDS: Folic Acid 1 MG TAB PO SCH (13:03)
[2017-06-04] MEDS: guaiFENesin ER 600 MG TAB PO SCH ×2 (13:04→20:42)
[2017-06-04] MEDS ORDERED: Diltiazem 125 MG in Sodium Chloride 0.9% 100 ML IVPB SCH (13:10)
--- NOTE | 2017-06-04 13:10 | PDOC.CTH ---
<Lexi Cervantes - Last Filed: 06/04/17 13:06> Cardiology Progress Note - Objective Vital Signs Temp Pulse Resp BP Pulse Ox 06/04/17 11:15 99.2 F 83 20 152/70 H 97 06/04/17 07:27 89 20 96 06/04/17 04:00 98.0 F 75 18 124/60 98 Weight 132 lb 4.8 oz 06/03/17 06/04/17 06/05/17 06:59 06:59 06:59 Intake Total 900 Output Total 1900 Balance -1000 - Labs Result Diagrams: 06/04/17 06:01 06/04/17 06:01 Troponin/CKMB CK-MB (CK-2) 0.6 ng/mL (0-6.6) 06/04/17 06:01 Troponin I 0.055 ng/mL (< 0.028) H 06/04/17 06:01 - Assessment/Plan 1. Acute on chronic diastolic CHF - Stable with current medication; still on 2LNC; cont. monitor 2. Afib with RVR - Well controlled HR with Diltiazem IV 5mg/h; will change diltiazem IV to 180mg PO daily from tomorrow; on Coumadin; cont. monitor on tele 3. Bronchitis - managed by PCP 4. CAD with hx of CABG - stable; cont. monitor on tele 5. Hx of AVR and MV repair - Echo on 01/2017 (at the office) showed normal function; on Coumadin; INR today was 1.6; dosage managed by PCP 6. HTN - stable with current medication 7. Chronic Anemia, macricytic - no changed from yesterday; cont. monitor 8. BLE Edema - 3-4+ pitting edema; instructed wear knee high TEDs daytime and raise BLE while resting MAR reviewed <Channing Berry - Last Filed: 06/04/17 19:22> Cardiology Progress Note - Objective Vital Signs Temp Pulse Resp BP Pulse Ox 06/04/17 18:47 96 06/04/17 18:46 83 16 96 06/04/17 15:15 98.7 F 90 19 139/63 97 06/04/17 13:56 84 16 96 06/04/17 11:15 99.2 F 83 20 152/70 H 97 06/04/17 08:00 98.7 F 90 19 94 L 06/04/17 07:27 89 20 96 Weight 132 lb 4.8 oz 06/03/17 06/04/17 06/05/17 06:59 06:59 06:59 Intake Total 900 Output Total 1900 Balance -1000 - Labs Result Diagrams: 06/04/17 06:01 06/04/17 06:01 Troponin/CKMB CK-MB (CK-2) 0.6 ng/mL (0-6.6) 06/04/17 06:01 Troponin I 0.055 ng/mL (< 0.028) H 06/04/17 06:01 - Assessment/Plan Pt. seen and eval. by me. She feels better today. I agree with the A/P by the [employer]. Decreased BS bilat. L>R. Irreg./irreg. thythm. rate controlled.
[2017-06-04] MEDS: cefTRIAXone\\ROCEPHIN 1 GM, Syringe 0.4 ML in Sterile Water 9.6 ML SLOW IVP SCH (13:11)
--- NOTE | 2017-06-04 13:19 | ULT ---
ULTRASOUND OF THE RIGHT GROIN: (Celeste scale, color flow, and spectral Doppler) HISTORY: Right groin pain. FINDINGS: There is normal flow and spectral waveforms of the external iliac, common femoral, and femoral arteri es and veins with normal waveforms. There is a complex cystic mass in the region of the right groin measuring 6 x 2 x 7.1 cm without inte rnal vascularity, likely a hematoma. IMPRESSION: No evidence of right groin pseudoaneurysm. POS: JOSE RAUL
--- NOTE | 2017-06-04 13:51 | PRG ---
DATE OF SERVICE: 06/04/2017. SUBJECTIVE: Patient is feeling better. She has had an extensive diuresis since yesterday. PHYSICAL EXAMINATION: VITAL SIGNS: Temperature is 99.2, pulse 83, respirations 20, O2 saturation 97% on 2 liters, blood pr essure 152/70. HEENT: Unremarkable. NECK: No JVD. LUNGS: Slightly diminished breath sounds on the left compared to right. CARDIAC: S1 and S2. Irregular. ABDOMEN: Soft. EXTREMITIES: No edema. LABORATORY DATA: White blood cell count 12.7, hematocrit 28.5, platelet count 361. Sodium 134, pota ssium 3.8, chloride 96, CO2 of 31, BUN 21, creatinine 0.7, glucose 82. ASSESSMENT: 1. Pleural effusions secondary to congestive heart failure. 2. Chronic atrial fibrillation. RECOMMENDATIONS: 1. Continue diuresing as you were doing. 2. Consider stopping antibiotics.
[2017-06-04] MEDS: Warfarin Sodium 2 MG TAB PO SCH (18:50)
[2017-06-04] MEDS: Atorvastatin Calcium 40 MG TAB PO SCH (20:42)
[2017-06-04] MEDS: Ezetimibe 10 MG TAB PO SCH (20:42)
[2017-06-05] MEDS: Diabetic Tussin 200 MG/10 ML UDCUP PO PRN ×4 (05:12→22:59)
[2017-06-05] MEDS: Furosemide 40 MG/4 ML VIAL SLOW IVP SCH ×2 (05:12→13:49)
[2017-06-05 05:34] LABS: INR-International Normal Ratio 1.4; Prothrombin Time 17.3 SEC (12.0-14.7)
[2017-06-05] MEDS ORDERED: Warfarin Sodium 2 MG TAB PO SCH (07:30)
[2017-06-05 07:32] LABS: #Lymphocytes 0.6 thou/uL (1.20-3.40); #Monocytes 0.7 thou/uL (0.11-0.59); #Neutrophils 8.7 thou/uL (1.40-6.50); %Eosinophils 0.4 % (0.0-10.0); %Lymphocytes 5.5 % (21.0-51.0); %Monocytes 6.8 % (0.0-10.0); %Neutrophils 87.2 % (42.0-75.0); Hemoglobin 9.4 g/dL (12.0-16.0); Mean Corpuscular HGB CONC 32.2 g/dL (32.0-36.0); Mean Corpuscular Volume 99.5 fl (81.0-99.0); Mean Platelet Volume 6.5 fL (7.4-10.4); Platelet Count 367 thou/uL (130-400); RBC Distribution Width 14.2 % (11.5-14.5); Red Blood Cell (RBC) Count 2.94 mill/uL (4.20-5.40); White Blood Cell (WBC) Count 9.9 thou/uL (4.8-10.8)
[2017-06-05 07:39] LABS: Anion Gap 9 mmol/L (10-20); BUN (Urea Nitrogen) 27 mg/dL (9.8-20.1); Calc. Creatinine Clearance 52 mL/min (70-130); Calcium 8.4 mg/dL (7.8-10.44); Carbon Dioxide 34 mmol/L (23-31); Chloride 97 mmol/L (98-107); Estimated GFR-MDRD 78; Glucose 128 mg/dL (83-110); Sodium 136 mmol/L (136-145)
[2017-06-05] MEDS: Calcium Carbonate + Vit D 1 TAB PO SCH (09:04)
[2017-06-05] MEDS: Famotidine 20 MG TAB PO SCH ×2 (09:04→21:02)
[2017-06-05] MEDS: Cyanocobalamin (Vitamin B-12) 1,000 MCG TAB PO SCH (09:04)
[2017-06-05] MEDS: Hydroxyurea 500 MG CAP PO SCH (09:04)
[2017-06-05] MEDS: Potassium Chloride 20 MEQ TAB PO SCH (09:04)
[2017-06-05] MEDS: Ferrous Sulfate 325 MG TAB PO SCH ×2 (09:04→21:02)
[2017-06-05] MEDS: Carvedilol 3.125 MG TAB PO SCH ×2 (09:04→16:41)
[2017-06-05] MEDS: predniSONE 20 MG TAB PO SCH (09:05)
[2017-06-05] MEDS: Saccharomyces boulardii 250 MG CAP PO SCH (09:05)
[2017-06-05] MEDS: guaiFENesin ER 600 MG TAB PO SCH ×2 (09:05→21:02)
[2017-06-05] MEDS: Aspirin 81 mg Enteric Coated Tablet PO SCH (09:05)
[2017-06-05] MEDS: Losartan Potassium 25 MG TAB PO SCH (09:05)
[2017-06-05] MEDS: cefTRIAXone\\ROCEPHIN 1 GM, Syringe 0.4 ML in Sterile Water 9.6 ML SLOW IVP SCH (09:06)
[2017-06-05] MEDS: Cholecalciferol (Vitamin D3) 400 UNITS TAB PO SCH (09:33)
[2017-06-05] MEDS: Folic Acid 1 MG TAB PO SCH (09:33)
--- NOTE | 2017-06-05 09:53 | PDOC.PN ---
- Subjective Encounter Start Date: 06/05/17 Encounter Start Time: 07:50 Patient seen and examined. No new complaints. No overnight events has cough with sputum - Objective Resuscitation Status: Resuscitation Status DNR:Do Not Resuscitate MAR Reviewed: Yes Vital Signs & Weight: Vital Signs (12 hours) Temp Pulse Resp BP Pulse Ox 06/05/17 07:12 100 06/05/17 07:10 83 12 06/05/17 04:00 97.7 F 70 20 139/70 20 L 06/05/17 00:00 96.9 F L 80 20 125/59 L 99 06/04/17 23:45 96 Weight Weight 126 lb 6.4 oz I&O: 06/04/17 06/05/17 06/06/17 06:59 06:59 06:59 Intake Total 900 360 Output Total 1900 2200 Balance -1000 -1840 Result Diagrams: 06/05/17 04:58 06/05/17 04:58 EKG Reviewed by me: Yes (afib) Phys Exam - Physical Examination Constitutional: NAD HEENT: PERRLA, moist MMs, sclera anicteric Neck: no JVD, supple Respiratory: no wheezing, no rhonchi reduced air entry at base Cardiovascular: irregular SM+ Gastrointestinal: soft, non-tender, no distention, positive bowel sounds Musculoskeletal: no edema, pulses present Neurological: non-focal, normal sensation Lymphatic: no nodes Psychiatric: normal affect Skin: no rash, normal turgor Dx/Plan (1) Acute on chronic combined systolic and diastolic CHF (congestive heart failure) Code(s): I50.43 - ACUTE ON CHRONIC COMBINED SYSTOLIC AND DIASTOLIC HRT FAIL Status: Acute Comment: continue diuresis (2) Atrial fibrillation with RVR Code(s): I48.91 - UNSPECIFIED ATRIAL FIBRILLATION Status: Acute Comment: now rate controlled (3) Elevated troponin Code(s): R74.8 - ABNORMAL LEVELS OF OTHER SERUM ENZYMES Status: Acute Comment: demand ischemia (4) Aortic regurgitation Code(s): I35.1 - NONRHEUMATIC AORTIC (VALVE) INSUFFICIENCY Status: Chronic Comment: with recent h/o AVR (5) CAD (coronary artery disease) Code(s): I25.10 - ATHSCL HEART DISEASE OF [place] CORONARY ARTERY W/O ANG PCTRS Status: Chronic Comment: Chronic, stable (6) H/O aortic valve replacement Code(s): Z95.2 - PRESENCE OF PROSTHETIC HEART VALVE Status: Chronic (7) H/O mitral valve repair Code(s): Z98.890 - OTHER SPECIFIED POSTPROCEDURAL STATES Status: Chronic (8) HTN (hypertension) Code(s): I10 - ESSENTIAL (PRIMARY) HYPERTENSION Status: Chronic Qualifiers: (9) Hepatitis C Code(s): B19.20 - UNSPECIFIED VIRAL HEPATITIS C WITHOUT HEPATIC COMA Status: Chronic Qualifiers: (10) Hx of cancer of lung Code(s): Z85.118 - PERSONAL HISTORY OF MALIGNANT NEOPLASM OF BRONCHUS AND LUNG Status: Chronic (11) Hx of coronary artery bypass graft Status: Chronic (12) Macrocytic anemia Code(s): D53.9 - NUTRITIONAL ANEMIA, UNSPECIFIED Status: Chronic (13) Severe tricuspid regurgitation Code(s): I07.1 - RHEUMATIC TRICUSPID INSUFFICIENCY Status: Chronic Comment: (14) Physical deconditioning Code(s): R53.81 - OTHER MALAISE Status: Acute (15) Acute bronchitis Code(s): J20.9 - ACUTE BRONCHITIS, UNSPECIFIED Status: Acute - Plan cont current plan of care, continue antibiotics * dc rocephin, add omnicef * continue cardizem cd, rate controlled * INR subtherapeutic, will give 2 mg warfarin one time extra dose * doing well, continue diuresis. * medication reviewed as below * symptomatic treatment * plan for discharge to [facility] tomorrow Review of Systems - Review of Systems Constitutional: weakness. negative: fever, chills, sweats, malaise, other Eyes: negative: Pain, Vision Change, Conjunctivae Inflammation, Eyelid Inflammation, Redness, Other ENT: negative: Ear Pain, Ear Discharge, Nose Pain, Nose Discharge, Nose Congestion, Mouth Pain, Mouth Swelling, Throat Pain, Throat Swelling, Other Respiratory: Cough, SOB with Excertion, Sputum. negative: Dry, Shortness of Breath, Hemoptysis, Pleuritic Pain, Wheezing Cardiovascular: negative: chest pain, palpitations, orthopnea, paroxysmal nocturnal dyspnea, edema, light headedness, other Gastrointestinal: negative: Nausea, Vomiting, Abdominal Pain, Diarrhea, Constipation, Melena, Hematochezia, Other Genitourinary: negative: Dysuria, Frequency, Incontinence, Hematuria, Retention , Other Musculoskeletal: negative: Neck Pain, Shoulder Pain, Arm Pain, Back Pain, Hand Pain, Leg Pain, Foot Pain, Other - Medications/Allergies Allergies/Adverse Reactions: Allergies Allergy/AdvReac Type Severity Reaction Status Date / Time tramadol Allergy Intermediate Verified 05/31/16 12:12 codeine Allergy Mild Emesis Verified 05/31/16 12:12 Medications: Current Medications Acetaminophen (Tylenol) 650 mg PO Q4H PRN PRN Reason: Headache/Fever or Pain Al Hydroxide/Mg Hydroxide (Maalox) 30 ml PO Q6H PRN PRN Reason: Heartburn or Indigestion Albuterol/Ipratropium (Duoneb) 3 ml NEB [id number] [facility] Last Admin: 06/05/17 07:10 Dose: 3 ml Artificial Tears (Tears Naturale) 0 drop EA EYE PRN PRN PRN Reason: Dry Eyes Aspirin (Ecotrin) 81 mg PO DAILY [facility] Last Admin: 06/05/17 09:05 Dose: 81 mg Atorvastatin Calcium (Lipitor) 80 mg PO [facility] Last Admin: 06/04/17 20:42 Dose: 80 mg Calcium/Vitamin D (Caltrate 600 + Vit D) 1 tab PO DAILY [facility] Last Admin: 06/05/17 09:04 Dose: 1 tab Carvedilol (Coreg) 3.125 mg PO BID-[facility] Last Admin: 06/05/17 09:04 Dose: 3.125 mg Cholecalciferol (Vitamin D) 400 units PO DAILY [facility] Last Admin: 06/05/17 09:33 Dose: 400 units Cyanocobalamin (Vitamin B-12) 1,000 mcg PO DAILY [facility] Last Admin: 06/05/17 09:04 Dose: 1,000 mcg Diltiazem HCl (Cardizem Cd) 180 mg PO DAILY [facility] Last Admin: 06/05/17 09:05 Dose: 180 mg Ezetimibe (Zetia) 10 mg PO HS [facility] Last Admin: 06/04/17 20:42 Dose: 10 mg Famotidine (Pepcid) 20 mg PO BID [facility] Last Admin: 06/05/17 09:04 Dose: 20 mg Ferrous Sulfate (Feosol) 325 mg PO BID [facility] Last Admin: 06/05/17 09:04 Dose: 325 mg Folic Acid (Folvite) 1 mg PO DAILY [facility] Last Admin: 06/05/17 09:33 Dose: 1 mg Furosemide (Lasix) 40 mg SLOW IVP 0600,1400 [facility] Last Admin: 06/05/17 05:12 Dose: 40 mg Guaifenesin (Robitussin Sf) 200 mg PO Q4H PRN PRN Reason: Cough Last Admin: 06/05/17 09:33 Dose: 200 mg Guaifenesin (Mucinex) 600 mg PO Q12HR [facility] Last Admin: 06/05/17 09:05 Dose: 600 mg Hydroxyurea (Hydrea) 500 mg PO MoWe@0900 [facility] Last Admin: 06/05/17 09:04 Dose: 500 mg Ceftriaxone Sodium 1 gm/ (Syringe 0.4 ml/ Sterile Water) 10 mls @ 120 mls/hr SLOW IVP DAILY [facility] Last Admin: 06/05/17 09:06 Dose: 10 mls Diltiazem HCl 125 mg/ Sodium (Chloride) 125 mls @ 5 mls/hr IVPB INF TRISTEN; 5 MG/ HR PRN Reason: Protocol Stop: 06/05/17 10:00 Labetalol HCl (Normodyne) 10 mg SLOW IVP Q4H PRN PRN Reason: Systolic BP > 180 Loperamide HCl (Imodium) 2 mg PO PRN PRN PRN Reason: Diarrhea/Loose Stools Loratadine (Claritin) 10 mg PO DAILYPRN PRN PRN Reason: Sinus Symptoms Losartan Potassium (Cozaar) 25 mg PO DAILY [facility] Last Admin: 06/05/17 09:05 Dose: 25 mg Magnesium Hydroxide (Milk Of Magnesium) 30 ml PO DAILYPRN PRN PRN Reason: Constipation Mineral Oil/White Petrolatum (Eucerin Cream) 0 gm TOP BIDPRN PRN PRN Reason: Dry Skin Ondansetron HCl (Zofran Odt) 4 mg PO Q6H PRN PRN Reason: Nausea/Vomiting Ondansetron HCl (Zofran) 4 mg IVP Q6H PRN PRN Reason: Nausea/Vomiting Phenol (Chloraseptic [place] 180 Ml Bot) 0 ml PO PRN PRN PRN Reason: Sore Throat Potassium Chloride (K-Dur) 20 meq PO DAILY [facility] Last Admin: 06/05/17 09:04 Dose: 20 meq Prednisone (Prednisone) 20 mg PO QA-[facility] Stop: 06/11/17 08:01 Last Admin: 06/05/17 09:05 Dose: 20 mg Saccharomyces Boulardii (Florastor) 250 mg PO DAILY [facility] Last Admin: 06/05/17 09:05 Dose: 250 mg Senna (Senokot) 2 tab PO HSPRN PRN PRN Reason: Constipation Sodium Chloride ([place] Nasal [place] 0.65%) 0 ml EA NARE QIDPRN PRN PRN Reason: Nasal Congestion Warfarin Sodium (Coumadin) 2 mg PO 1700 [facility] Last Admin: 06/04/17 18:50 Dose: 2 mg
--- NOTE | 2017-06-05 10:35 | PDOC.CTH ---
<Lexi Cervantes - Last Filed: 06/05/17 10:33> Cardiology Progress Note - Subjective The pt seen and examined. No overnight events. No cardiac complaints. She tolerate RA. - Objective Vital Signs Temp Pulse Resp BP Pulse Ox 06/05/17 07:12 100 06/05/17 07:10 83 12 06/05/17 04:00 97.7 F 70 20 139/70 20 L 06/05/17 00:00 96.9 F L 80 20 125/59 L 99 06/04/17 23:45 96 Weight 126 lb 6.4 oz 06/04/17 06/05/17 06/06/17 06:59 06:59 06:59 Intake Total 900 360 Output Total 1900 2200 Balance -1000 -1840 - Physical Examination General/Neuro: alert & oriented x3 Neck: no JVD present Lungs: CTA Heart: other: (irregular) Abdomen: soft Extremities: other: (3-4+ pitting edema; on SCDs) - Telemetry Telemetry Rhythm: Afib 80s - Labs Result Diagrams: 06/05/17 04:58 06/05/17 04:58 Troponin/CKMB CK-MB (CK-2) 0.6 ng/mL (0-6.6) 06/04/17 06:01 Troponin I 0.055 ng/mL (< 0.028) H 06/04/17 06:01 - Assessment/Plan 1. Acute on chronic diastolic CHF - Stable with RA; cont. monitor 2. Afib with RVR - Well controlled HR with Diltiazem PO 180mg daily; on Coumadin which managed by PCP; cont. monitor on tele 3. Bronchitis - on antibiotic; managed by PCP 4. CAD with hx of CABG - stable; cont. monitor on tele 5. Hx of AVR and MV repair - Echo on 01/2017 (at the office) showed normal function; on Coumadin; INR today was 1.6; dosage managed by PCP 6. HTN - stable with current medication 7. Chronic Anemia, macricytic - no changed from yesterday; cont. monitor 8. BLE Edema - 3-4+ pitting edema; better than yesterday; cont. monitor MAR reviewed . Review of Systems - Review of Systems Constitutional: reports: no symptoms reported EENTM: reports: no symptoms reported Respiratory: reports: no symptoms reported Cardiac (ROS): reports: no symptoms reported ABD/GI: reports: no symptoms reported : reports: no symptoms reported <Channing Berry - Last Filed: 06/05/17 17:50> Cardiology Progress Note - Objective Vital Signs Temp Pulse Pulse Pulse Resp BP BP 06/05/17 15:35 97.9 F 73 22 H 06/05/17 14:11 70 16 06/05/17 11:15 89 73 140/65 122/60 06/05/17 11:10 97.5 F L 73 16 06/05/17 08:00 98.6 F 82 18 06/05/17 07:12 06/05/17 07:10 83 12 BP Pulse Ox 06/05/17 15:35 143/61 H 99 06/05/17 14:11 06/05/17 11:15 06/05/17 11:10 124/66 93 L 06/05/17 08:00 121/59 L 94 L 06/05/17 07:12 100 06/05/17 07:10 Weight 126 lb 6.4 oz 06/04/17 06/05/17 06/06/17 06:59 06:59 06:59 Intake Total 900 360 480 Output Total 1900 2200 Balance -1000 -1840 480 - Labs Result Diagrams: 06/05/17 04:58 06/05/17 04:58 Troponin/CKMB CK-MB (CK-2) 0.6 ng/mL (0-6.6) 06/04/17 06:01 Troponin I 0.055 ng/mL (< 0.028) H 06/04/17 06:01 - Assessment/Plan Pt. seen and evaluated by me. I agree with the A/P by the FOLLOW UP CLERK.
[2017-06-05] MEDS: Warfarin Sodium 2 MG TAB PO SCH (16:42)
[2017-06-05] MEDS: Atorvastatin Calcium 40 MG TAB PO SCH (21:02)
[2017-06-05] MEDS: Ezetimibe 10 MG TAB PO SCH (21:03)
[2017-06-05] MEDS: Cefdinir 300 MG CAP PO SCH (21:03)
[2017-06-06] MEDS: Diabetic Tussin 200 MG/10 ML UDCUP PO PRN (04:43)
[2017-06-06 05:31] LABS: INR-International Normal Ratio 1.3; Prothrombin Time 16.2 SEC (12.0-14.7)
[2017-06-06] MEDS: Furosemide 40 MG/4 ML VIAL SLOW IVP SCH ×2 (05:39→14:15)
[2017-06-06] MEDS: Losartan Potassium 25 MG TAB PO SCH (08:29)
[2017-06-06] MEDS: Folic Acid 1 MG TAB PO SCH (08:29)
[2017-06-06] MEDS: Potassium Chloride 20 MEQ TAB PO SCH (08:29)
[2017-06-06] MEDS: Ferrous Sulfate 325 MG TAB PO SCH ×2 (08:29→21:19)
[2017-06-06] MEDS: Cholecalciferol (Vitamin D3) 400 UNITS TAB PO SCH (08:29)
[2017-06-06] MEDS: Cefdinir 300 MG CAP PO SCH ×2 (08:29→21:19)
[2017-06-06] MEDS: Carvedilol 3.125 MG TAB PO SCH ×2 (08:29→16:34)
[2017-06-06] MEDS: predniSONE 20 MG TAB PO SCH (08:29)
[2017-06-06] MEDS: Famotidine 20 MG TAB PO SCH ×2 (08:29→21:19)
[2017-06-06] MEDS: Aspirin 81 mg Enteric Coated Tablet PO SCH (08:29)
[2017-06-06] MEDS: Calcium Carbonate + Vit D 1 TAB PO SCH (08:29)
[2017-06-06] MEDS: guaiFENesin ER 600 MG TAB PO SCH ×2 (08:30→21:19)
[2017-06-06] MEDS: Saccharomyces boulardii 250 MG CAP PO SCH (08:30)
[2017-06-06] MEDS: Cyanocobalamin (Vitamin B-12) 1,000 MCG TAB PO SCH (08:30)
--- NOTE | 2017-06-06 10:09 | PDOC.PN ---
- Subjective Encounter Start Date: 06/06/17 Encounter Start Time: 07:30 Patient seen and examined. No new complaints. No overnight events - Objective Resuscitation Status: Resuscitation Status DNR:Do Not Resuscitate MAR Reviewed: Yes Vital Signs & Weight: Vital Signs (12 hours) Temp Pulse Resp BP Pulse Ox 06/06/17 08:00 99.1 F 91 16 97 06/06/17 07:48 99.1 F 91 16 167/79 H 97 06/06/17 07:45 89 20 95 06/06/17 04:00 98.6 F 78 14 151/76 H 98 06/06/17 00:54 72 18 97 06/06/17 00:00 98.3 F 79 18 127/60 99 Weight Weight 126 lb I&O: 06/05/17 06/06/17 06/07/17 06:59 06:59 06:59 Intake Total 360 1440 Output Total 2200 500 Balance -1840 940 Result Diagrams: 06/05/17 04:58 06/05/17 04:58 EKG Reviewed by me: Yes (afib) Phys Exam - Physical Examination Constitutional: NAD HEENT: PERRLA, moist MMs, sclera anicteric Neck: no JVD, supple Respiratory: no wheezing, no rales, no rhonchi Cardiovascular: irregular SM+ Gastrointestinal: soft, non-tender, no distention, positive bowel sounds Musculoskeletal: pulses present, edema present Neurological: non-focal, normal sensation Psychiatric: normal affect, A&O x 3 Skin: no rash, normal turgor Dx/Plan (1) Acute on chronic combined systolic and diastolic CHF (congestive heart failure) Code(s): I50.43 - ACUTE ON CHRONIC COMBINED SYSTOLIC AND DIASTOLIC HRT FAIL Status: Acute Comment: continue diuresis (2) Atrial fibrillation with RVR Code(s): I48.91 - UNSPECIFIED ATRIAL FIBRILLATION Status: Acute Comment: now rate controlled (3) Elevated troponin Code(s): R74.8 - ABNORMAL LEVELS OF OTHER SERUM ENZYMES Status: Acute Comment: demand ischemia (4) Aortic regurgitation Code(s): I35.1 - NONRHEUMATIC AORTIC (VALVE) INSUFFICIENCY Status: Chronic Comment: with recent h/o AVR (5) CAD (coronary artery disease) Code(s): I25.10 - ATHSCL HEART DISEASE OF [place] CORONARY ARTERY W/O ANG PCTRS Status: Chronic Comment: Chronic, stable (6) H/O aortic valve replacement Code(s): Z95.2 - PRESENCE OF PROSTHETIC HEART VALVE Status: Chronic (7) H/O mitral valve repair Code(s): Z98.890 - OTHER SPECIFIED POSTPROCEDURAL STATES Status: Chronic (8) HTN (hypertension) Code(s): I10 - ESSENTIAL (PRIMARY) HYPERTENSION Status: Chronic Qualifiers: (9) Hepatitis C Code(s): B19.20 - UNSPECIFIED VIRAL HEPATITIS C WITHOUT HEPATIC COMA Status: Chronic Qualifiers: (10) Hx of cancer of lung Code(s): Z85.118 - PERSONAL HISTORY OF MALIGNANT NEOPLASM OF BRONCHUS AND LUNG Status: Chronic (11) Hx of coronary artery bypass graft Status: Chronic (12) Macrocytic anemia Code(s): D53.9 - NUTRITIONAL ANEMIA, UNSPECIFIED Status: Chronic (13) Severe tricuspid regurgitation Code(s): I07.1 - RHEUMATIC TRICUSPID INSUFFICIENCY Status: Chronic Comment: (14) Physical deconditioning Code(s): R53.81 - OTHER MALAISE Status: Acute (15) Acute bronchitis Code(s): J20.9 - ACUTE BRONCHITIS, UNSPECIFIED Status: Acute - Plan cont current plan of care, continue antibiotics, PT/OT, respiratory therapy * will benefit from one more day diuresis * medication reviewed as below * symptomatic treatment * will increase warfarin 5 mg po daily * medication reviewed as below * symptomatic treatment. Review of Systems - Review of Systems ENT: negative: Ear Pain, Ear Discharge, Nose Pain, Nose Discharge, Nose Congestion, Mouth Pain, Mouth Swelling, Throat Pain, Throat Swelling, Other Respiratory: Cough, Sputum. negative: Dry, Shortness of Breath, Hemoptysis, SOB with Excertion, Pleuritic Pain, Wheezing Cardiovascular: negative: chest pain, palpitations, orthopnea, paroxysmal nocturnal dyspnea, edema, light headedness, other Gastrointestinal: negative: Nausea, Vomiting, Abdominal Pain, Diarrhea, Constipation, Melena, Hematochezia, Other Genitourinary: negative: Dysuria, Frequency, Incontinence, Hematuria, Retention , Other Musculoskeletal: negative: Neck Pain, Shoulder Pain, Arm Pain, Back Pain, Hand Pain, Leg Pain, Foot Pain, Other Skin: negative: Rash, Lesions, Brett, Bruising, Other - Medications/Allergies Allergies/Adverse Reactions: Allergies Allergy/AdvReac Type Severity Reaction Status Date / Time tramadol Allergy Intermediate Verified 05/31/16 12:12 codeine Allergy Mild Emesis Verified 05/31/16 12:12 Medications: Current Medications Acetaminophen (Tylenol) 650 mg PO Q4H PRN PRN Reason: Headache/Fever or Pain Last Admin: 06/06/17 08:30 Dose: 650 mg Al Hydroxide/Mg Hydroxide (Maalox) 30 ml PO Q6H PRN PRN Reason: Heartburn or Indigestion Albuterol/Ipratropium (Duoneb) 3 ml NEB [id number] [facility] Last Admin: 06/06/17 07:45 Dose: 3 ml Artificial Tears (Tears Naturale) 0 drop EA EYE PRN PRN PRN Reason: Dry Eyes Aspirin (Ecotrin) 81 mg PO DAILY [facility] Last Admin: 06/06/17 08:29 Dose: 81 mg Atorvastatin Calcium (Lipitor) 80 mg PO [facility] Last Admin: 06/05/17 21:02 Dose: 80 mg Calcium/Vitamin D (Caltrate 600 + Vit D) 1 tab PO DAILY [facility] Last Admin: 06/06/17 08:29 Dose: 1 tab Carvedilol (Coreg) 3.125 mg PO BID-[facility] Last Admin: 06/06/17 08:29 Dose: 3.125 mg Cefdinir (Omnicef) 300 mg PO BID [facility] Last Admin: 06/06/17 08:29 Dose: 300 mg Cholecalciferol (Vitamin D) 400 units PO DAILY [facility] Last Admin: 06/06/17 08:29 Dose: 400 units Cyanocobalamin (Vitamin B-12) 1,000 mcg PO DAILY [facility] Last Admin: 06/06/17 08:30 Dose: 1,000 mcg Diltiazem HCl (Cardizem Cd) 180 mg PO DAILY [facility] Last Admin: 06/06/17 08:29 Dose: 180 mg Ezetimibe (Zetia) 10 mg PO HS [facility] Last Admin: 06/05/17 21:03 Dose: 10 mg Famotidine (Pepcid) 20 mg PO BID [facility] Last Admin: 06/06/17 08:29 Dose: 20 mg Ferrous Sulfate (Feosol) 325 mg PO BID [facility] Last Admin: 06/06/17 08:29 Dose: 325 mg Folic Acid (Folvite) 1 mg PO DAILY [facility] Last Admin: 06/06/17 08:29 Dose: 1 mg Furosemide (Lasix) 40 mg SLOW IVP 0600,1400 [facility] Last Admin: 06/06/17 05:39 Dose: 40 mg Guaifenesin (Robitussin Sf) 200 mg PO Q4H PRN PRN Reason: Cough Last Admin: 06/06/17 04:43 Dose: 200 mg Guaifenesin (Mucinex) 600 mg PO Q12HR [facility] Last Admin: 06/06/17 08:30 Dose: 600 mg Hydroxyurea (Hydrea) 500 mg PO MoWe@0900 [facility] Last Admin: 06/05/17 09:04 Dose: 500 mg Labetalol HCl (Normodyne) 10 mg SLOW IVP Q4H PRN PRN Reason: Systolic BP > 180 Loperamide HCl (Imodium) 2 mg PO PRN PRN PRN Reason: Diarrhea/Loose Stools Loratadine (Claritin) 10 mg PO DAILYPRN PRN PRN Reason: Sinus Symptoms Losartan Potassium (Cozaar) 25 mg PO DAILY [facility] Last Admin: 06/06/17 08:29 Dose: 25 mg Magnesium Hydroxide (Milk Of Magnesium) 30 ml PO DAILYPRN PRN PRN Reason: Constipation Mineral Oil/White Petrolatum (Eucerin Cream) 0 gm TOP BIDPRN PRN PRN Reason: Dry Skin Ondansetron HCl (Zofran Odt) 4 mg PO Q6H PRN PRN Reason: Nausea/Vomiting Ondansetron HCl (Zofran) 4 mg IVP Q6H PRN PRN Reason: Nausea/Vomiting Phenol (Chloraseptic [place] 180 Ml Bot) 0 ml PO PRN PRN PRN Reason: Sore Throat Potassium Chloride (K-Dur) 20 meq PO DAILY [facility] Last Admin: 06/06/17 08:29 Dose: 20 meq Prednisone (Prednisone) 20 mg PO QAM-[facility] Stop: 06/11/17 08:01 Last Admin: 06/06/17 08:29 Dose: 20 mg Saccharomyces Boulardii (Florastor) 250 mg PO DAILY [facility] Last Admin: 06/06/17 08:30 Dose: 250 mg Senna (Senokot) 2 tab PO HSPRN PRN PRN Reason: Constipation Sodium Chloride ([place] Nasal [place] 0.65%) 0 ml EA NARE QIDPRN PRN PRN Reason: Nasal Congestion Warfarin Sodium (Coumadin) 4 mg PO 1700 [facility]
--- NOTE | 2017-06-06 15:08 | PRG ---
DATE OF SERVICE: 06/06/2017 SUBJECTIVE: Ms. Krishna said she was told she is being discharged today at 9:00 this morning. OBJECTIVE: VITAL SIGNS: Her temperature is 99.1, heart rate is in the 70s-80s, respiratory rate is 18, oximetry is 92 on room air, blood pressure 132/72. LUNGS: Remarkable for decreased breath sounds at her bases. HEART: Regular rhythm. ABDOMEN: Soft. LABORATORY DATA: There is no new lab today. IMPRESSION: Pleural effusions associated with her congestive heart failure and atrial fibrillation. PLAN: Continue with medical management. Thoracentesis is not indicated. She is actually asymptomat ic at this point. She should follow up with us in 4-6 weeks for chest radiograph as I have explained to her.
[2017-06-06] MEDS ORDERED: Warfarin Sodium 5 MG TAB PO SCH (17:00)
[2017-06-06] MEDS ORDERED: Warfarin Sodium 2 MG TAB PO SCH ×2 (17:00)
[2017-06-06] MEDS: Atorvastatin Calcium 40 MG TAB PO SCH (21:19)
[2017-06-06] MEDS: Ezetimibe 10 MG TAB PO SCH (21:19)
[2017-06-07] MEDS: Furosemide 40 MG/4 ML VIAL SLOW IVP SCH (05:09)
[2017-06-07 05:28] LABS: INR-International Normal Ratio 1.4; Prothrombin Time 17.5 SEC (12.0-14.7)
[2017-06-07 05:32] LABS: Anion Gap 10 mmol/L (10-20); BUN (Urea Nitrogen) 30 mg/dL (9.8-20.1); Calc. Creatinine Clearance 55 mL/min (70-130); Calcium 8.9 mg/dL (7.8-10.44); Carbon Dioxide 35 mmol/L (23-31); Chloride 97 mmol/L (98-107); Estimated GFR-MDRD 82; Glucose 99 mg/dL (83-110); Potassium 4.2 mmol/L (3.5-5.1); Sodium 138 mmol/L (136-145)
--- NOTE | 2017-06-07 07:37 | PRG ---
DATE OF SERVICE: 06/07/2017 Ms. Krishna has no new complaints. I noticed a mild cough while she was in the room, but he does not really consider this to be a factor. PHYSICAL EXAMINATION: VITAL SIGNS: She is afebrile, heart rate 70, respiratory rate 18, oximetry is 93. Blood pressure 14 5/73. LUNGS: Remarkable for decreased breath sounds at her right greater than left base. HEART: Regular rhythm. ABDOMEN: Soft. LABORATORY: Sodium 138, potassium 4.2, chloride 97, bicarbonate 35, BUN 30, creatinine 0.68. IMPRESSION: Congestive heart failure with bilateral pleural effusions. There is no clinical indicat ion for thoracentesis. As mentioned, she will need follow up radiograph in 4-6 weeks.
[2017-06-07 07:58] VITALS: BP 152/72; TEMP 98.8
[2017-06-07] MEDS: Saccharomyces boulardii 250 MG CAP PO SCH (08:40)
[2017-06-07] MEDS: Aspirin 81 mg Enteric Coated Tablet PO SCH (08:41)
[2017-06-07] MEDS: Hydroxyurea 500 MG CAP PO SCH (08:41)
[2017-06-07] MEDS: Cefdinir 300 MG CAP PO SCH (08:41)
[2017-06-07] MEDS: Potassium Chloride 20 MEQ TAB PO SCH (08:41)
[2017-06-07] MEDS: Calcium Carbonate + Vit D 1 TAB PO SCH (08:41)
[2017-06-07] MEDS: predniSONE 20 MG TAB PO SCH (08:42)
[2017-06-07] MEDS: Cholecalciferol (Vitamin D3) 400 UNITS TAB PO SCH (08:42)
[2017-06-07] MEDS: Carvedilol 3.125 MG TAB PO SCH (08:42)
[2017-06-07] MEDS: Famotidine 20 MG TAB PO SCH (08:42)
[2017-06-07] MEDS: guaiFENesin ER 600 MG TAB PO SCH (08:42)
[2017-06-07] MEDS: Losartan Potassium 25 MG TAB PO SCH (08:42)
[2017-06-07] MEDS: Cyanocobalamin (Vitamin B-12) 1,000 MCG TAB PO SCH (08:42)
[2017-06-07] MEDS: Folic Acid 1 MG TAB PO SCH (08:43)
--- NOTE | 2017-06-07 10:39 | PDOC.PN ---
- Subjective Encounter Start Date: 06/07/17 Encounter Start Time: 10:10 Patient seen and examined. No new complaints. No overnight events - Objective Resuscitation Status: Resuscitation Status DNR:Do Not Resuscitate MAR Reviewed: Yes Vital Signs & Weight: Vital Signs (12 hours) Temp Pulse Resp BP Pulse Ox 06/07/17 08:56 100 06/07/17 08:53 83 16 06/07/17 08:00 98.8 F 86 16 89 L 06/07/17 07:53 98.8 F 86 16 152/72 H 89 L 06/07/17 04:00 98.0 F 70 18 145/73 H 93 L 06/07/17 00:31 73 14 92 L Weight Weight 124 lb 3 oz I&O: 06/06/17 06/07/17 06/08/17 06:59 06:59 06:59 Intake Total 1440 600 Output Total 500 3000 Balance 940 -2400 Result Diagrams: 06/05/17 04:58 06/07/17 04:53 EKG Reviewed by me: Yes Phys Exam - Physical Examination Constitutional: NAD HEENT: PERRLA, moist MMs, sclera anicteric Neck: no JVD, supple Respiratory: no wheezing, no rales, no rhonchi Cardiovascular: no rub, irregular SM+ Gastrointestinal: soft, non-tender, no distention Musculoskeletal: no edema, pulses present Neurological: non-focal, normal sensation Psychiatric: normal affect, A&O x 3 Skin: normal turgor Dx/Plan (1) Acute on chronic combined systolic and diastolic CHF (congestive heart failure) Code(s): I50.43 - ACUTE ON CHRONIC COMBINED SYSTOLIC AND DIASTOLIC HRT FAIL Status: Acute Comment: continue diuresis (2) Atrial fibrillation with RVR Code(s): I48.91 - UNSPECIFIED ATRIAL FIBRILLATION Status: Acute Comment: now rate controlled (3) Elevated troponin Code(s): R74.8 - ABNORMAL LEVELS OF OTHER SERUM ENZYMES Status: Acute Comment: demand ischemia (4) Aortic regurgitation Code(s): I35.1 - NONRHEUMATIC AORTIC (VALVE) INSUFFICIENCY Status: Chronic Comment: with recent h/o AVR (5) CAD (coronary artery disease) Code(s): I25.10 - ATHSCL HEART DISEASE OF [place] CORONARY ARTERY W/O ANG PCTRS Status: Chronic Comment: Chronic, stable (6) H/O aortic valve replacement Code(s): Z95.2 - PRESENCE OF PROSTHETIC HEART VALVE Status: Chronic (7) H/O mitral valve repair Code(s): Z98.890 - OTHER SPECIFIED POSTPROCEDURAL STATES Status: Chronic (8) HTN (hypertension) Code(s): I10 - ESSENTIAL (PRIMARY) HYPERTENSION Status: Chronic Qualifiers: (9) Hepatitis C Code(s): B19.20 - UNSPECIFIED VIRAL HEPATITIS C WITHOUT HEPATIC COMA Status: Chronic Qualifiers: (10) Hx of cancer of lung Code(s): Z85.118 - PERSONAL HISTORY OF MALIGNANT NEOPLASM OF BRONCHUS AND LUNG Status: Chronic (11) Hx of coronary artery bypass graft Status: Chronic (12) Macrocytic anemia Code(s): D53.9 - NUTRITIONAL ANEMIA, UNSPECIFIED Status: Chronic (13) Severe tricuspid regurgitation Code(s): I07.1 - RHEUMATIC TRICUSPID INSUFFICIENCY Status: Chronic Comment: (14) Physical deconditioning Code(s): R53.81 - OTHER MALAISE Status: Acute (15) Acute bronchitis Code(s): J20.9 - ACUTE BRONCHITIS, UNSPECIFIED Status: Acute - Plan cont current plan of care * medication reviewed as below * symptomatic treatment * see discharge juliana. . Review of Systems - Review of Systems ENT: negative: Ear Pain, Ear Discharge, Nose Pain, Nose Discharge, Nose Congestion, Mouth Pain, Mouth Swelling, Throat Pain, Throat Swelling, Other Respiratory: Cough. negative: Dry, Shortness of Breath, Hemoptysis, SOB with Excertion, Pleuritic Pain, Sputum, Wheezing Cardiovascular: negative: chest pain, palpitations, orthopnea, paroxysmal nocturnal dyspnea, edema, light headedness, other Gastrointestinal: negative: Nausea, Vomiting, Abdominal Pain, Diarrhea, Constipation, Melena, Hematochezia, Other Genitourinary: negative: Dysuria, Frequency, Incontinence, Hematuria, Retention , Other Musculoskeletal: negative: Neck Pain, Shoulder Pain, Arm Pain, Back Pain, Hand Pain, Leg Pain, Foot Pain, Other - Medications/Allergies Allergies/Adverse Reactions: Allergies Allergy/AdvReac Type Severity Reaction Status Date / Time tramadol Allergy Intermediate Verified 05/31/16 12:12 codeine Allergy Mild Emesis Verified 05/31/16 12:12
--- NOTE | 2017-06-07 11:17 | DIS ---
DATE OF ADMISSION: 06/02/2017 DATE OF DISCHARGE: 06/07/2017 PRIMARY CARE PHYSICIAN: Kristi Hicks M.D. DISCHARGE DISPOSITION: [facility]. PRIMARY DISCHARGE DIAGNOSES: 1. Acute bronchitis. 2. Acute on chronic systolic and diastolic exacerbation. 3. Atrial fibrillation with rapid ventricular response. 4. Demand ischemia. 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 PRIMARY PROCEDURE/OPERATION: None. RADIOLOGICAL INVESTIGATION: Chest x-ray, ultrasound completion. SIGNIFICANT LABORATORY DATA: WBC 9.9, hemoglobin 9.4, platelets 367, INR 1.4. Creatinine 0.68, trop onin 0.055. Urinalysis normal. Influenza negative. DISCHARGE MEDICATIONS: Tylenol 500 mg q.6 hourly p.r.n., aspirin 81 mg p.o. daily, Lipitor 80 mg p.o . at bedtime, calcium with vitamin D 1 tablet p.o. daily, Coreg 3.125 mg p.o. b.i.d., Omnicef 300 mg p.o. b.i.d., vitamin D3 400 units p.o. daily, vitamin B12 1000 mcg p.o. daily, Cardizem-CD 180 mg p.o . daily, Zetia 10 mg p.o. at bedtime, Pepcid 20 mg p.o. b.i.d., ferrous sulfate 325 mg p.o. daily, fo lic acid 0.8 mg p.o. daily, Lasix 40 mg p.o. daily, Mucinex 600 mg p.o. b.i.d. for 5 days, hydroxyure a 500 mg p.o. as directed, losartan 25 mg p.o. daily, potassium chloride 20 mEq p.o. daily, prednison e 20 mg p.o. daily for 5 more days, Florastor 250 mg p.o. daily for 5 days, and warfarin 4 mg p.o. da karen. CONTRAINDICATIONS: None. CODE STATUS: The patient was DNR while in hospital. INPATIENT CONSULTANTS: Dr. Aburto was following while in hospital. Dr. Padilla was consulted while in hospital. TEST RESULTS PENDING ON DISCHARGE: None. ALLERGIES: TRAMADOL and CODEINE. DISCHARGE PLAN: Post hospital, the patient is discharged to [facility] for more PT/OT. HOSPITAL COURSE: An 86-year-old female with the above-mentioned medical problem who was admitted by me. Please see my HPI for further details. [facility] sing shortness of breath and cough. She was found with acute bronchitis as well as acute on chronic diastolic and systolic congestive heart failure exacerbation. On admission, she had atrial fibrillat ion with rapid ventricular response. She was admitted to telemetry floor. She was treated for atria l fibrillation with Cardizem drip and subsequently Cardizem-CD 180 mg p.o. started and she remained w ith rate controlled. Regarding acute bronchitis, the patient was given Rocephin, DuoNeb therapy and Mucinex therapy with s ignificant improvement. On discharge, we changed to Omnicef for another 5 days. Regarding systolic congestive heart failure, we treated with IV Lasix and Zaroxolyn with significant improvement. Dr. Flores as well as Dr. Padilla was consulted while in hospital. This patient has out of hospital DNR paper and that was continued while in hospital as well. The patient is doing very well. She is on room air. The patient is hemodynamically stable. She susie l need to repeat chest x-ray in 2-3 weeks. All consultants cleared her for discharge. Paper work for discharge done. Discharge medication reconciliation done. Total time spent on discharge day 31 minutes. Please see my progress note from today for further det ails.
[2017-06-08] MEDS ORDERED: Furosemide 40 MG TAB PO SCH (07:30)
== END 2017-06-07 10:23 | DRG 292 ==
LOC: ERS 19:02 → ERHOLD 21:57 → 2NO 06-03 03:28
PROVIDERS: ADMIT Internal Medicine Infectious Disease; ATTEND Internal Medicine Infectious Disease
DX: I11.0 Hypertensive heart disease with heart failure (principal); I24.8 Other forms of acute ischemic heart disease; I48.0 Paroxysmal atrial fibrillation; J20.9 Acute bronchitis, unspecified; Z79.01 Long term (current) use of anticoagulants; I50.43 Acute on chronic combined systolic (congestive) and diastolic (congestive) heart failure; Z95.1 Presence of aortocoronary bypass graft; I25.10 Atherosclerotic heart disease of native coronary artery without angina pectoris; Z95.2 Presence of prosthetic heart valve; Z66 Do not resuscitate; Z79.82 Long term (current) use of aspirin; I08.0 Rheumatic disorders of both mitral and aortic valves; B18.2 Chronic viral hepatitis C; Z85.118 Personal history of other malignant neoplasm of bronchus and lung; Z90.2 Acquired absence of lung [part of]; Z96.641 Presence of right artificial hip joint; Z88.5 Allergy status to narcotic agent; Z88.8 Allergy status to other drugs, medicaments and biological substances; D50.9 Iron deficiency anemia, unspecified; E78.00 Pure hypercholesterolemia, unspecified
CPT/HCPCS: 36415; 71010; 76936; 80048; 80053; 81001; 82550; 82553; 83690; 83735; 83880; 84484; 84550; 85025; 85610; 93005; 93306; 93798; 94640; 94760; 96374; 96375; 96376; A4216; G8978-GP-CK; G8979-GP-CJ; G8987-GO-CJ; G8988-GO-CI; J0696; J1160; J1940; J7050; J7506; J7620

== ENCOUNTER 2017-07-06 13:39 | Outpatient (CLI) | payer BC, MEDICARE ==
--- NOTE | 2017-07-06 15:05 | RAD ---
FRONTAL AND LATERAL IMAGING OF CHEST: Date: 07/06/17 COMPARISON: 06/02/17. HISTORY: Shortness of breath. FINDINGS: Midline sternotomy wires and evidence of valvuloplasty noted. Postoperative clips are noted in the le ft suprahilar region and right perihilar region, stable as well. There is no pneumothorax noted. There is pleural and parenchymal opacity within the left lung base, evidence of left pleural effusion with associated partial consolidation/collapse of left lower lobe, stable. There is mild blunting of right costophrenic angle suggesting a small stable right pleural effusion. IMPRESSION: Bilateral pleural effusions, left greater than right, not significant changed. No acute findings. POS: [facility]
== END 2017-07-06 13:40 | disposition home or self-care (01) ==
LOC: RAD 13:39
PROVIDERS: ATTEND Internal Medicine Pulmonary Disease
DX: R06.00 Dyspnea, unspecified (principal); J90 Pleural effusion, not elsewhere classified
CPT/HCPCS: 71046

== ENCOUNTER 2017-09-05 12:36 | Outpatient (CLI) | payer MEDICARE, BC ==
--- NOTE | 2017-09-05 14:12 | RAD ---
2 VIEW CHEST: Date: 09/05/17 HISTORY: Dyspnea. COMPARISON: 07/06/17. FINDINGS: Moderate size left effusion again noted. The size of this effusion is slightly smaller than on the pr ior study. Mild cardiomegaly again noted. Postop sternotomy change and prosthetic aortic valve. No ev idence of vascular congestion or edema. No evidence of focal infiltrate. IMPRESSION: 1. Moderate left effusion and probable small right effusion. 2. Cardiomegaly appears stable. POS: [facility]
== END 2017-09-05 12:37 | disposition home or self-care (01) ==
LOC: RAD 12:36
PROVIDERS: ATTEND Internal Medicine Pulmonary Disease
DX: R06.00 Dyspnea, unspecified (principal); J90 Pleural effusion, not elsewhere classified; I51.7 Cardiomegaly
CPT/HCPCS: 71046

== ENCOUNTER 2017-12-05 10:47 | Outpatient (CLI) | payer MEDICARE, BC ==
--- NOTE | 2017-12-05 12:22 | RAD ---
PA AND LATERAL VIEWS CHEST: HISTORY: Dyspnea. FINDINGS: Comparison is made with the exam of 09/05/17. Changes of median sternotomy and aortic valve replacement are again seen. The heart is enlarged. Th e lungs are well expanded without lobar consolidation, pneumothoraces, or pleural effusions. Bones a re osteopenic. IMPRESSION: No evidence of acute process. POS: [facility]
== END 2017-12-05 10:48 | disposition home or self-care (01) ==
LOC: RAD 10:47
PROVIDERS: ATTEND Internal Medicine Pulmonary Disease
DX: R06.00 Dyspnea, unspecified (principal)
CPT/HCPCS: 71046

== ENCOUNTER 2018-01-29 12:09 | Emergency (ER) | payer MEDICARE, BC ==
--- NOTE | 2018-01-29 14:06 | RAD ---
THREE VIEWS OF THE RIGHT ANKLE: Indication: Right ankle pain. Comparison: None. FINDINGS: No acute fracture or subluxation is evident. Mild cortical calcification seen in the soft tissues. Th ere is diffuse osteopenia. IMPRESSION: No acute osseous abnormality. POS: [facility]
--- NOTE | 2018-01-29 14:10 | RAD ---
TWO VIEWS RIGHT FORELEG: INDICATION: Hit right ankle on bathtub several days ago, now with pain. COMPARISON: None. FINDINGS: No acute fracture or subluxation is evident. There is diffuse osteopenia. There are mild calcificat ions in the soft tissues of the right foreleg. IMPRESSION: No acute osseous abnormality. POS: [facility]
--- NOTE | 2018-01-29 14:11 | RAD ---
THREE VIEWS RIGHT FOOT: Date: 01-29-18 History: Right foot and ankle pain after injury. FINDINGS: There is osteopenia. Lisfranc joint is normally aligned. No fracture or dislocation is seen involving the right foot. Vascular calcifications are seen about the foot and involving the ankle. No other os seous abnormality. IMPRESSION: Osteopenia without evidence of an acute osseous abnormality involving the right foot. POS: [facility]
== END 2018-01-29 14:02 | disposition home or self-care (01) ==
LOC: ERS 12:09
DX: S93.401A Sprain of unspecified ligament of right ankle, initial encounter (principal); I25.10 Atherosclerotic heart disease of native coronary artery without angina pectoris; I48.91 Unspecified atrial fibrillation; E78.5 Hyperlipidemia, unspecified; I10 Essential (primary) hypertension; Z79.899 Other long term (current) drug therapy; Z79.01 Long term (current) use of anticoagulants; W18.2XXA Fall in (into) shower or empty bathtub, initial encounter

== ENCOUNTER 2018-06-07 12:55 | Outpatient (CLI) | payer MEDICARE, BC ==
--- NOTE | 2018-06-07 14:32 | RAD ---
PA AND LATERAL CHEST: History: Dyspnea. FINDINGS: Comparison made with exam of 12-05-17. Changes of median sternotomy and aortic valve replacement are redemonstrated. The heart size is enlar ged. The lungs are well expanded without focal areas of consolidation, pneumothoraces or pleural effu sions. Bones are osteopenic. IMPRESSION: Stable exam. No acute process. POS: [facility]
== END 2018-06-07 12:56 | disposition home or self-care (01) ==
LOC: RAD 12:55
PROVIDERS: ATTEND Internal Medicine Pulmonary Disease
DX: R06.00 Dyspnea, unspecified (principal)
CPT/HCPCS: 71046

== ENCOUNTER 2018-08-09 13:55 | Inpatient (IN) | payer MEDICARE, BC ==
[2018-08-09 15:07] LABS: #Eosinphils 0.1 thou/uL (0.0-0.7); #Lymphocytes 0.7 thou/uL (1.20-3.40); #Monocytes 1.2 thou/uL (0.11-0.59); #Neutrophils 7.8 thou/uL (1.40-6.50); %Basophils 0.2 % (0.0-1.0); %Eosinophils 0.7 % (0.0-10.0); %Lymphocytes 6.8 % (21.0-51.0); %Monocytes 12.2 % (0.0-10.0); Hemoglobin 13.8 g/dL (12.0-16.0); Mean Corpuscular HGB CONC 33.2 g/dL (32.0-36.0); Mean Corpuscular Hemoglobin 32.3 pg (27.0-31.0); Mean Corpuscular Volume 97.2 fL (78.0-98.0); Mean Platelet Volume 6.4 fL (7.4-10.4); Platelet Count 350 thou/uL (130-400); RBC Distribution Width 13.8 % (11.5-14.5); Red Blood Cell (RBC) Count 4.29 mill/uL (4.20-5.40); White Blood Cell (WBC) Count 9.8 thou/uL (4.8-10.8)
--- NOTE | 2018-08-09 15:12 | RAD ---
PORTABLE CHEST: History: Shortness of breath. Cough. Comparison: 06-02-17, 06-07-18 FINDINGS: Heart size is enlarged. There are post op sternotomy changes and evidence for valve replacement. Lung s show chronic appearing change. The bones are demineralized. IMPRESSION: Cardiomegaly with chronic lung change. POS: [facility]
[2018-08-09 15:14] LABS: INR-International Normal Ratio 2.2; Prothrombin Time 24.5 SEC (12.0-14.7)
[2018-08-09 15:15] LABS: PTT 45.2 SEC (22.9-36.1)
[2018-08-09 15:23] LABS: ALT (SGPT) 15 U/L (8-55); AST (SGOT) 25 U/L (5-34); Albumin 3.6 g/dL (3.4-4.8); Alkaline Phosphatase 97 U/L (40-150); Anion Gap 14 mmol/L (10-20); BUN (Urea Nitrogen) 33 mg/dL (9.8-20.1); Bilirubin, Total 2.7 mg/dL (0.2-1.2); Calc. Creatinine Clearance 0 mL/min (70-130); Calcium 8.9 mg/dL (7.8-10.44); Carbon Dioxide 24 mmol/L (23-31); Chloride 99 mmol/L (98-107); Estimated GFR-MDRD 57; Glucose 105 mg/dL (83-110); Potassium 3.8 mmol/L (3.5-5.1); Protein, Total 6.6 g/dL (6.0-8.3); Sodium 133 mmol/L (136-145)
[2018-08-09 16:08] LABS: Bilirubin Small (Negative); Blood, Urine Trace (Negative); Glucose, Urine (Dipstick) Negative (Negative); Leukocyte Negative (Negative); Nitrite Negative (Negative); Protein, Urine (Dipstick) 30 mg/dL (Neg-Trace); pH, Urine 5.5 (5.0-9.0)
[2018-08-09 16:09] LABS: Clarity Hazy (Clear)
[2018-08-09 16:10] LABS: Specific Gravity, Urine 1.023 (1.002-1.036)
[2018-08-09 16:28] LABS: RBC/HPF 0-3 HPF (0-3); Squamous Epithelial None Seen HPF (0-3); WBC/HPF 0-3 HPF (0-3)
[2018-08-09 16:29] LABS: Bacteria/HPF Rare-Few HPF (None Seen); Hyaline Casts/LPF NONE SEEN LPF (0-3 Hyaline)
[2018-08-09 18:15] LABS: Troponin I Less than 0.010 ng/mL (< 0.028)
[2018-08-09] MEDS ORDERED: Aspirin Chewable 81 MG TAB PO SCH (20:00)
[2018-08-09 21:04] LABS: Troponin I Less than 0.010 ng/mL (< 0.028)
[2018-08-09] MEDS ORDERED: guaiFENesin 100 MG/5 ML UDCUP PO PRN (22:22)
[2018-08-09] MEDS ORDERED: Acetaminophen 500 MG TAB PO PRN (22:27)
[2018-08-09] MEDS: Diabetic Tussin 200 MG/10 ML UDCUP PO PRN (23:14)
[2018-08-09] MEDS: Famotidine 20 MG TAB PO SCH (23:14)
[2018-08-10] MEDS: Acetaminophen 325 MG TAB PO PRN ×2 (03:41→20:52)
[2018-08-10] MEDS: Diabetic Tussin 200 MG/10 ML UDCUP PO PRN (03:41)
--- NOTE | 2018-08-10 04:48 | HP ---
PRIMARY CARE PHYSICIAN: Raisa Ortiz MD CHIEF COMPLAINT: Shortness of breath. HISTORY OF PRESENT ILLNESS: Ms. Krishna is an 87-year-old female, who reported to the emergency room via EMS for shortness of breath. The patient reports cough and shortness of breath x2 days. Reports productive cough with yellow sputum. Reports fever yesterday, which is now resolved. The patient also reports increased inhaler use. Denies nausea or vomiting. Denies any sick contacts or any pain. The patient's hide trimmer is Dr. Carrera. 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 The patient reports symptoms are constant. Chest x-ray revealed cardiomegaly. The patient will be admitted to the observation unit for further management for chronic congestive heart failure exacerbation. On exam, the patient reports that she feels better, is less short of breath. PAST MEDICAL HISTORY: Includes coronary artery disease, arrhythmia, atrial fib, leaky valve which was replaced, hyperlipidemia, high cholesterol, hypertension, was admitted in beginning of 2017 with acute on chronic systolic and diastolic exacerbation. At that time, she also had atrial fibrillation with RVR. Last echocardiogram in June of 2017 showed a left pleural effusion. EF of 50% to 55%. Left atrium mildly dilated. At that time, she had severe mitral regurgitation, mitral annuloplasty ring in place. Normal functioning bioprosthetic valve in aortic position. Mild aortic stenosis, mild aortic regurgitation, [id number] tricuspid regurgitation. PAST SURGICAL HISTORY: She has had a CABG x5 vessel. Hysterectomy. She has had right hip replacement, left upper lobe lobectomy, aortic valve replaced in April of 2017. PSYCHIATRIC HISTORY: None. SOCIAL HISTORY: Denies any alcohol or drug use. Has no smoking history. REVIEW OF SYSTEMS: CONSTITUTIONAL: Denies chills. Does report fever, which is resolved. Denies eye pain or vision changes. ENT: Denies rhinorrhea or sore throat. CARDIOVASCULAR: Denies chest pain or palpitations. RESPIRATORY: Reports cough, shortness of breath. Reports yellow sputum. GI: Denies abdominal pain, nausea, vomiting, or diarrhea. : Denies dysuria or frequency. MUSCULOSKELETAL: Denies back pain, falls, or injury. SKIN: Denies rash or skin changes. NEUROLOGIC: Denies mental status changes. Denies headache. HEMO: Denies abnormal blood clotting. PHYSICAL EXAMINATION: VITAL SIGNS: Blood pressure 135/67, pulse is 72, respirations 23, temp is 98.1, PO2 sats 95% on 2 L of oxygen. CONSTITUTIONAL: The patient appears nontoxic, is pain free, alert and oriented to person, place, and time. HEENT: Head is atraumatic and normocephalic. Eyes are equally round and reactive to light. Extraocular muscles are intact. ENT; mouth exam is normal. Mucous membranes are moist. NECK: Normal range of motion. Trachea is midline. RESPIRATORY/CHEST: Rhonchi is present. No signs of respiratory distress. CARDIOVASCULAR: Irregularly irregular. Heart sounds are normal. ABDOMEN: Nontender. Bowel sounds are heard. BACK: Normal range of motion. No tenderness. EXTREMITIES: Upper extremity, inspection is normal. Normal range of motion. Motor strength is normal. Sensation intact. Radial pulses are equal bilaterally. Lower extremity, normal range of motion. Motor strength is normal. Sensation intact. Pedal pulses equal bilaterally. NEURO: The patient is oriented to person, place, and time. Speech is normal. SKIN: Dry and normal color. No rash. EKG in the emergency room shows atrial fibrillation with controlled ventricular response, beats per minute is 82, atrial dysrhythmia, ST segments normal, T-waves normal, and axis is normal. PERTINENT LABORATORY DATA: White blood cell count 9.8, hemoglobin 13.8, hematocrit 41.7, and platelet count 350. Coagulation PT 24.5, INR 2.2, APTT 45.2. Sodium 133, potassium 3.8, gap is 14, carbon dioxide is 24, BUN is 33, creatinine is 0.93, estimated GFR 67, glucose 105. Lactic acid 1.5, calcium 8.9, bilirubin 2.7, direct bilirubin 1.2. BNP 343. Troponin x2 are undetectable. Liver enzymes are unremarkable. Urine shows protein, trace ketones, trace blood, trace bilirubin. ASSESSMENT/PLAN: 1. Dyspnea, most likely related to an exacerbation of congestive heart failure, possible runs of atrial fibrillation, uncontrolled. We will order an echocardiogram. We will ask Cardiology to consult. We will restart home medications. 2. Chronic anticoagulation. We will continue Coumadin. We will repeat INR in the a.m. 3. Gastrointestinal and deep venous thrombosis prophylaxis will be started. 4. Hospital course will be dependent on clinical findings. Job ID: [id number]
[2018-08-10 05:52] LABS: INR-International Normal Ratio 2.4; PTT 53.1 SEC (22.9-36.1); Prothrombin Time 25.9 SEC (12.0-14.7)
[2018-08-10 05:59] LABS: ALT (SGPT) 15 U/L (8-55); AST (SGOT) 24 U/L (5-34); Albumin 3.4 g/dL (3.4-4.8); Alkaline Phosphatase 92 U/L (40-150); Anion Gap 14 mmol/L (10-20); BUN (Urea Nitrogen) 35 mg/dL (9.8-20.1); Bilirubin, Total 2.5 mg/dL (0.2-1.2); Calc. Creatinine Clearance 40 mL/min (70-130); Calcium 8.9 mg/dL (7.8-10.44); Carbon Dioxide 25 mmol/L (23-31); Chloride 99 mmol/L (98-107); Estimated GFR-MDRD 63; Globulin 3.1 g/dL (2.4-3.5); Glucose 131 mg/dL (83-110); Potassium 3.6 mmol/L (3.5-5.1); Protein, Total 6.5 g/dL (6.0-8.3); Sodium 134 mmol/L (136-145)
[2018-08-10 06:36] LABS: Band 31 % (5-11); Hemoglobin 12.9 g/dL (12.0-16.0); Lymphocytes 16 % (21-51); MDiff Complete? YES; Mean Corpuscular HGB CONC 32.2 g/dL (32.0-36.0); Mean Corpuscular Hemoglobin 31.1 pg (27.0-31.0); Mean Corpuscular Volume 96.5 fL (78.0-98.0); Mean Platelet Volume 6.6 fL (7.4-10.4); Monocytes 6 % (0-10); Neutrophil 47 % (42-75); Platelet Count 389 thou/uL (130-400); Platelet Morphology Comment Appears Adequate; RBC Distribution Width 13.9 % (11.5-14.5); Red Blood Cell (RBC) Count 4.14 mill/uL (4.20-5.40); White Blood Cell (WBC) Count 8.4 thou/uL (4.8-10.8)
[2018-08-10] MEDS ORDERED: Furosemide 40 MG TAB PO SCH (07:30)
[2018-08-10] MEDS: Losartan 25 MG TAB PO SCH (08:14)
[2018-08-10] MEDS: Aspirin Chewable 81 MG TAB PO SCH (08:15)
[2018-08-10] MEDS: Ezetimibe 10 MG TAB PO SCH (08:15)
[2018-08-10] MEDS: Carvedilol 3.125 MG TAB PO SCH ×2 (08:15→16:10)
[2018-08-10] MEDS: Ferrous Sulfate 325 MG TAB PO SCH ×2 (08:15→20:12)
[2018-08-10] MEDS: Famotidine 20 MG TAB PO SCH ×2 (08:15→20:13)
[2018-08-10] MEDS: Pantoprazole 40 MG GRANULES PACKET PO SCH (08:15)
[2018-08-10] MEDS: Folic Acid 1 MG TAB PO SCH (08:15)
[2018-08-10] MEDS ORDERED: Potassium Chloride 20 MEQ TAB PO SCH (09:00)
[2018-08-10] MEDS ORDERED: Aspirin 81 mg Enteric Coated Tablet PO SCH (09:00)
[2018-08-10 14:01] VITALS: BMI 20.2
[2018-08-10] MEDS ORDERED: Furosemide 40 MG/4 ML VIAL IVP SCH (16:00)
[2018-08-10] MEDS: Warfarin Sodium 5 MG TAB PO SCH (16:10)
--- NOTE | 2018-08-10 16:32 | CON ---
DATE OF CONSULTATION: 08/10/2018 REASON FOR CONSULTATION: Shortness of breath. PRIMARY TRAUMA COORDINATOR: Dr. Leo Carrera. HISTORY OF PRESENT ILLNESS: Ms. Krishna is an 87-year-old woman with extensive cardiac history. She has a history of CAD, status post bypass surgery x5. Last angio with three of five grafts patent. She also has a history of aortic valve replacement, thoracic aneurysm repair in addition to mitral valve repair. She also has been followed by Dr. Jose Waterman, for lung cancer, status post resection. She recently presented with shortness of breath. It has been occurring over the last several days. No lower extremity edema, PND, or orthopnea present. No chest pain. She does admit to intermittent subjective fevers. PAST CARDIAC HISTORY: As described above. Last echo dated 08/21/2017, with LVEF 50% to 55%, left-sided pleural effusion present, severe mitral regurgitation with mitral annuloplasty ring in place in addition to bioprosthetic aortic valve and mild aortic stenosis. PAST MEDICAL HISTORY: As above including hyperlipidemia and hypertension. HOME MEDICATIONS: 1. Iron. 2. Coumadin. 3. Potassium. 4. Folic acid. 5. Probiotic. 6. Zetia. 7. Pantoprazole. 8. Diltiazem. 9. Lasix. 10. Losartan. 11. Carvedilol. 12. Ranexa. 13. Atorvastatin. 14. Vitamin D3. REVIEW OF SYSTEMS: A 10-point review of systems is reviewed and as above, otherwise negative. PHYSICAL EXAMINATION: VITAL SIGNS: Blood pressure 133/64, pulse 87, temperature afebrile. GENERAL: Patient is a pleasant 87-year-old, who is in no acute distress. The patient appears their stated age. NEUROLOGIC: The patient is alert and oriented x3 with no focal neurologic deficits. HEENT: Sclerae without icterus. Mouth has moist mucous membranes with normal pallor. NECK: No JVD. Carotid upstroke brisk. No bruits bilaterally. LUNGS: Minimal crackles bilaterally. BACK: No scoliosis or kyphosis. HEART: Irregularly regular. ABDOMEN: Soft, nontender, nondistended. No peritoneal signs present. No hepatosplenomegaly. No abnormal striae. EXTREMITIES: 2+ femoral and 2+ dorsalis pedis pulses. No cyanosis, clubbing, or edema. SKIN: No gross abnormalities. PERTINENT LABORATORY DATA: Hemoglobin 12.9, hematocrit 40, platelet count 389. Creatinine 0.86, sodium 134, bilirubin 1.2. BNP of 343. IMPRESSION: 1. Shortness of breath. 2. Coronary artery disease. 3. Status post bypass surgery. 4. Aortic valve replacement with thoracic aneurysm repair. 5. Mitral valve annuloplasty. RECOMMENDATIONS: Ms. Maurice symptoms are likely multifactorial. She does have a history of severe mitral regurgitation and atrial fibrillation in addition to occluded grafts. At this point, I would treat symptomatically. We would recommend Lasix therapy. Lasix 40 mg p.o. has been started. We will switch to IV b.i.d. with one dose now. Continue carvedilol in addition to Cardizem for rate control in addition to aspirin. I would anticipate conservative treatment given Ms. Krishna's age, risk factors, and comorbidities. Job ID: [id number] MTDD
[2018-08-10] MEDS: cefTRIAXone\\ROCEPHIN 1 GM in Sodium Chloride 0.9% 100 ML IVPB SCH (18:00)
[2018-08-10] MEDS: Atorvastatin Calcium 40 MG TAB PO SCH (20:12)
[2018-08-10] MEDS: Doxycycline 100 MG CAP PO SCH (20:12)
--- NOTE | 2018-08-10 20:30 | PDOC.PN ---
- Subjective Encounter Start Date: 08/10/18 Encounter Start Time: 17:00 Patient seen and examined for CHF/Bronchitis. No new complaints. No overnight events - Objective MAR Reviewed: Yes Vital Signs & Weight: Vital Signs (12 hours) Temp Pulse Resp BP Pulse Ox 08/10/18 16:00 98.1 F 71 14 138/67 93 L 08/10/18 11:57 87 14 133/64 95 Weight Admit Weight 119 lb 11.376 oz Weight 114 lb 6.719 oz I&O: 08/09/18 08/10/18 08/11/18 06:59 06:59 06:59 Intake Total 300 1204 Balance 300 1204 Result Diagrams: 08/10/18 05:19 08/10/18 05:19 EKG Reviewed by me: Yes (Tele Afib) Phys Exam - Physical Examination Constitutional: NAD Respiratory: no wheezing B/L rhonchi with scat rales Cardiovascular: no rub, irregular Gastrointestinal: soft, non-tender, positive bowel sounds Musculoskeletal: no edema Dx/Plan - Plan 1. Acute on chronic diastolic HF exacerbation 2. Acute Bronchitis ?Pneumonia - prob Pneumococcal 3. A fib - on Warfarin 4. CAD 5. Other issues per H&P PLAN: Await Echo Add Ceftriaxone with Doxy CXR in AM Cont other meds as below DPAO - self/family Microbiology 08/09/18 14:47 Venous blood - Right Arm Blood Culture - Preliminary Specimen has been received and culture in progress. No Growth to date. 08/09/18 14:46 Venous blood - Left Arm Blood Culture - Preliminary Specimen has been received and culture in progress. No Growth to date. Laboratory Tests 08/10/18 08/10/18 08/10/18 05:19 05:19 05:19 Band Neuts % (Manual) 31 H INR 2.4 Total Bilirubin 2.5 H Review of Systems - Review of Systems Cardiovascular: negative: chest pain, palpitations, orthopnea, paroxysmal nocturnal dyspnea, edema, light headedness, other Gastrointestinal: negative: Nausea, Vomiting, Abdominal Pain, Diarrhea, Constipation, Melena, Hematochezia, Other - Medications/Allergies Allergies/Adverse Reactions: Allergies Allergy/AdvReac Type Severity Reaction Status Date / Time tramadol Allergy Intermediate Verified 08/09/18 21:50 codeine Allergy Mild Emesis Verified 08/09/18 21:50 Medications: Current Medications Acetaminophen (Tylenol) 650 mg PO Q4H PRN PRN Reason: Headache/Fever/Mild Pain (1-3) Last Admin: 08/10/18 03:41 Dose: 650 mg Acetaminophen (Tylenol) 500 mg PO Q6HR PRN PRN Reason: Pain Aspirin (Aspirin Chewable) 81 mg PO DAILY [facility] Last Admin: 08/10/18 08:15 Dose: 81 mg Atorvastatin Calcium (Lipitor) 80 mg PO HS [facility] Last Admin: 08/10/18 20:12 Dose: 80 mg Carvedilol (Coreg) 3.125 mg PO BID-WM [facility] Last Admin: 08/10/18 16:10 Dose: 3.125 mg Diltiazem HCl (Cardizem Cd) 180 mg PO DAILY [facility] Last Admin: 08/10/18 08:15 Dose: 180 mg Doxycycline Hyclate (Vibramycin) 100 mg PO BID [facility] Last Admin: 08/10/18 20:12 Dose: 100 mg Ezetimibe (Zetia) 10 mg PO DAILY [facility] Last Admin: 08/10/18 08:15 Dose: 10 mg Famotidine (Pepcid) 20 mg PO BID [facility] Last Admin: 08/10/18 20:13 Dose: 20 mg Ferrous Sulfate (Feosol) 325 mg PO BID [facility] Last Admin: 08/10/18 20:12 Dose: 325 mg Folic Acid (Folvite) 1 mg PO DAILY [facility] Last Admin: 08/10/18 08:15 Dose: 1 mg Furosemide (Lasix) 40 mg SLOW IVP 0600,1400 [facility] Guaifenesin (Robitussin Sf) 300 mg PO Q4H PRN PRN Reason: Cough Last Admin: 08/10/18 03:41 Dose: 300 mg Guaifenesin (Mucinex) 600 mg PO Q12HR [facility] Ceftriaxone Sodium 1 gm/ (Sodium Chloride) 100 mls @ 200 mls/hr IVPB Q24HR [facility] Last Admin: 08/10/18 18:00 Dose: 100 mls Losartan Potassium (Cozaar) 25 mg PO DAILY [facility] Last Admin: 08/10/18 08:14 Dose: 25 mg Miscellaneous Medication (Pharmacy To Dose) 1 each PO .WARFARIN [facility] Pantoprazole Sodium (Protonix) 40 mg PO DAILY [facility] Last Admin: 08/10/18 08:15 Dose: 40 mg Potassium Chloride (K-Dur) 20 meq PO DAILY [facility] Last Admin: 08/10/18 08:15 Dose: 20 meq Ranolazine (Ranexa) 500 mg PO DAILY [facility] Last Admin: 08/10/18 08:15 Dose: Not Given Sodium Chloride (Flush - Normal Saline) 10 ml IVF PRN PRN PRN Reason: Saline Flush Warfarin Sodium (Coumadin) 5 mg PO 1700 [facility] Last Admin: 08/10/18 16:10 Dose: 5 mg
[2018-08-10] MEDS: guaiFENesin ER 600 MG TAB PO SCH (20:52)
[2018-08-11] MEDS: Furosemide 40 MG/4 ML VIAL SLOW IVP SCH ×2 (06:05→14:57)
[2018-08-11 07:16] LABS: Hemoglobin 14.4 g/dL (12.0-16.0); Mean Corpuscular HGB CONC 32.7 g/dL (32.0-36.0); Mean Corpuscular Hemoglobin 31.5 pg (27.0-31.0); Mean Corpuscular Volume 96.4 fL (78.0-98.0); Mean Platelet Volume 6.6 fL (7.4-10.4); Platelet Count 481 thou/uL (130-400); RBC Distribution Width 13.9 % (11.5-14.5); Red Blood Cell (RBC) Count 4.59 mill/uL (4.20-5.40)
[2018-08-11 07:19] LABS: Phosphorus 2.8 mg/dL (2.3-4.7)
[2018-08-11 07:20] LABS: INR-International Normal Ratio 2.6
[2018-08-11 07:22] LABS: ALT (SGPT) 16 U/L (8-55); AST (SGOT) 28 U/L (5-34); Albumin 3.5 g/dL (3.4-4.8); Alkaline Phosphatase 111 U/L (40-150); Anion Gap 12 mmol/L (10-20); BUN (Urea Nitrogen) 38 mg/dL (9.8-20.1); Bilirubin, Total 1.7 mg/dL (0.2-1.2); Calc. Creatinine Clearance 32 mL/min (70-130); Calcium 9.3 mg/dL (7.8-10.44); Carbon Dioxide 30 mmol/L (23-31); Chloride 96 mmol/L (98-107); Estimated GFR-MDRD 54; Globulin 3.2 g/dL (2.4-3.5); Glucose 124 mg/dL (83-110); Magnesium 1.8 mg/dL (1.6-2.6); Potassium 3.2 mmol/L (3.5-5.1); Protein, Total 6.7 g/dL (6.0-8.3); Sodium 135 mmol/L (136-145)
[2018-08-11 07:55] LABS: Band 26 % (5-11); Burr Cells SLIGHT = 2-5 cells (100X) (0-1/hpf); Large Platelets SLIGHT; Lymphocytes 13 % (21-51); MDiff Complete? YES; Monocytes 17 % (0-10); Neutrophil 41 % (42-75); Platelet Morphology Comment Appears Increased; Polychromasia SLIGHT = 2-3 cells (100X) (0-2/hpf); Reactive Lymphocytes 2 % (0-10); Schistocytes SLIGHT = 2-5 cells (100X) (0-1/hpf); White Blood Cell (WBC) Count 7.7 thou/uL (4.8-10.8)
[2018-08-11] MEDS: guaiFENesin ER 600 MG TAB PO SCH ×2 (09:26→21:01)
[2018-08-11] MEDS: Carvedilol 3.125 MG TAB PO SCH ×2 (09:26→17:52)
[2018-08-11] MEDS: Ezetimibe 10 MG TAB PO SCH (09:26)
[2018-08-11] MEDS: Aspirin Chewable 81 MG TAB PO SCH (09:26)
[2018-08-11] MEDS: Doxycycline 100 MG CAP PO SCH ×2 (09:26→21:01)
[2018-08-11] MEDS: Ferrous Sulfate 325 MG TAB PO SCH ×2 (09:26→21:01)
[2018-08-11] MEDS: Folic Acid 1 MG TAB PO SCH (09:26)
[2018-08-11] MEDS: Pantoprazole 40 MG GRANULES PACKET PO SCH (09:27)
[2018-08-11] MEDS: Diabetic Tussin 200 MG/10 ML UDCUP PO PRN ×2 (09:27→21:00)
[2018-08-11] MEDS: Famotidine 20 MG TAB PO SCH ×2 (09:27→21:01)
[2018-08-11] MEDS: Losartan 25 MG TAB PO SCH (09:29)
--- NOTE | 2018-08-11 10:00 | PDOC.PN ---
- Subjective Encounter Start Date: 08/11/18 Encounter Start Time: 07:50 -: old records requested/rev pt has cough, dyspnea, no fever, feels better Patient seen and examined. No new complaints. No overnight events - Objective MAR Reviewed: Yes Vital Signs & Weight: Vital Signs (12 hours) Temp Pulse Resp BP Pulse Ox 08/11/18 08:35 97.9 F 71 18 126/72 96 08/11/18 06:00 96.8 F L 87 16 126/65 97 08/10/18 23:42 99.3 F 78 16 116/57 L 97 Weight Admit Weight 119 lb 11.376 oz Weight 108 lb 1 oz I&O: 08/10/18 08/11/18 08/12/18 06:59 06:59 07:59 Intake Total 300 1684 Output Total 500 Balance 300 1184 Result Diagrams: 08/11/18 06:32 08/11/18 06:33 Radiology Reviewed by me: Yes EKG Reviewed by me: Yes Phys Exam - Physical Examination Constitutional: NAD HEENT: PERRLA, moist MMs, sclera anicteric Neck: no JVD, supple reduced air entry, few rales+ Cardiovascular: RRR, no rub SM+ Gastrointestinal: soft, non-tender, no distention, positive bowel sounds Musculoskeletal: no edema, pulses present Neurological: non-focal, normal sensation Lymphatic: no nodes Psychiatric: normal affect, A&O x 3 Skin: no rash, normal turgor Dx/Plan (1) Acute on chronic diastolic ACC/AHA stage C congestive heart failure Code(s): I50.33 - ACUTE ON CHRONIC DIASTOLIC (CONGESTIVE) HEART FAILURE Status : Acute (2) Acute bronchitis Code(s): J20.9 - ACUTE BRONCHITIS, UNSPECIFIED Status: Acute (3) Hypokalemia Code(s): E87.6 - HYPOKALEMIA Status: Acute (4) UTI (urinary tract infection) Status: Acute (5) CAD (coronary artery disease) Code(s): I25.10 - ATHSCL HEART DISEASE OF [place] CORONARY ARTERY W/O ANG PCTRS Status: Chronic Comment: Chronic, stable (6) Chronic anticoagulation Code(s): Z79.01 - RETIREMENT (CURRENT) USE OF ANTICOAGULANTS Status: Chronic (7) H/O aortic valve replacement Code(s): Z95.2 - PRESENCE OF PROSTHETIC HEART VALVE Status: Chronic (8) H/O mitral valve repair Code(s): Z98.890 - OTHER SPECIFIED POSTPROCEDURAL STATES Status: Chronic (9) HTN (hypertension) Code(s): I10 - ESSENTIAL (PRIMARY) HYPERTENSION Status: Chronic Qualifiers: (10) Hx of cancer of lung Code(s): Z85.118 - PERSONAL HISTORY OF MALIGNANT NEOPLASM OF BRONCHUS AND LUNG Status: Chronic (11) Hx of coronary artery bypass graft Status: Chronic (12) Macrocytic anemia Code(s): D53.9 - NUTRITIONAL ANEMIA, UNSPECIFIED Status: Chronic (13) 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 * pt and family will decide about placement if needed Review of Systems - Review of Systems ENT: negative: Ear Pain, Ear Discharge, Nose Pain, Nose Discharge, Nose Congestion, Mouth Pain, Mouth Swelling, Throat Pain, Throat Swelling, Other Respiratory: Cough, Shortness of Breath, SOB with Excertion. negative: Dry, Hemoptysis, Pleuritic Pain, Sputum, Wheezing Cardiovascular: negative: chest pain, palpitations, orthopnea, paroxysmal nocturnal dyspnea, edema, light headedness, other Gastrointestinal: negative: Nausea, Vomiting, Abdominal Pain, Diarrhea, Constipation, Melena, Hematochezia, Other Genitourinary: negative: Dysuria, Frequency, Incontinence, Hematuria, Retention , Other Musculoskeletal: negative: Neck Pain, Shoulder Pain, Arm Pain, Back Pain, Hand Pain, Leg Pain, Foot Pain, Other Skin: negative: Rash, Lesions, Brett, Bruising, Other - Medications/Allergies Allergies/Adverse Reactions: Allergies Allergy/AdvReac Type Severity Reaction Status Date / Time tramadol Allergy Intermediate Verified 08/09/18 21:50 codeine Allergy Mild Emesis Verified 08/09/18 21:50 Medications: Current Medications Acetaminophen (Tylenol) 650 mg PO Q4H PRN PRN Reason: Headache/Fever/Mild Pain (1-3) Last Admin: 08/10/18 20:52 Dose: 650 mg Acetaminophen (Tylenol) 500 mg PO Q6HR PRN PRN Reason: Pain Aspirin (Aspirin Chewable) 81 mg PO DAILY [facility] Last Admin: 08/11/18 09:26 Dose: 81 mg Atorvastatin Calcium (Lipitor) 80 mg PO HS [facility] Last Admin: 08/10/18 20:12 Dose: 80 mg Carvedilol (Coreg) 3.125 mg PO BID-WM [facility] Last Admin: 08/11/18 09:26 Dose: 3.125 mg Diltiazem HCl (Cardizem Cd) 180 mg PO DAILY [facility] Last Admin: 08/11/18 09:26 Dose: 180 mg Doxycycline Hyclate (Vibramycin) 100 mg PO BID [facility] Last Admin: 08/11/18 09:26 Dose: 100 mg Ezetimibe (Zetia) 10 mg PO DAILY [facility] Last Admin: 08/11/18 09:26 Dose: 10 mg Famotidine (Pepcid) 20 mg PO BID [facility] Last Admin: 08/11/18 09:27 Dose: 20 mg Ferrous Sulfate (Feosol) 325 mg PO BID [facility] Last Admin: 08/11/18 09:26 Dose: 325 mg Folic Acid (Folvite) 1 mg PO DAILY [facility] Last Admin: 08/11/18 09:26 Dose: 1 mg Furosemide (Lasix) 40 mg SLOW IVP 0600,1400 [facility] Last Admin: 08/11/18 06:05 Dose: 40 mg Guaifenesin (Robitussin Sf) 300 mg PO Q4H PRN PRN Reason: Cough Last Admin: 08/11/18 09:27 Dose: 300 mg Guaifenesin (Mucinex) 600 mg PO Q12HR [facility] Last Admin: 08/11/18 09:26 Dose: 600 mg Ceftriaxone Sodium 1 gm/ (Sodium Chloride) 100 mls @ 200 mls/hr IVPB Q24HR [facility] Last Admin: 08/10/18 18:00 Dose: 100 mls Losartan Potassium (Cozaar) 25 mg PO DAILY [facility] Last Admin: 08/11/18 09:29 Dose: 25 mg Miscellaneous Medication (Pharmacy To Dose) 1 each PO .[facility]IN [facility] Pantoprazole Sodium (Protonix) 40 mg PO DAILY [facility] Last Admin: 08/11/18 09:27 Dose: 40 mg Potassium Chloride (K-Dur) 20 meq PO BID-[facility] Ranolazine (Ranexa) 500 mg PO DAILY [facility] Last Admin: 08/11/18 09:26 Dose: 500 mg Sodium Chloride (Flush - Normal Saline) 10 ml IVF PRN PRN PRN Reason: Saline Flush Warfarin Sodium (Coumadin) 5 mg PO 1700 [facility] Last Admin: 08/10/18 16:10 Dose: 5 mg
--- NOTE | 2018-08-11 10:51 | PDOC.CTH ---
Cardiology Progress Note - Subjective Patient still with cough and SOB, but improved. Says sputum is clearing in color. No CP. - Objective Vital Signs Temp Pulse Resp BP Pulse Ox 08/11/18 08:35 97.9 F 71 18 126/72 96 08/11/18 06:00 96.8 F L 87 16 126/65 97 08/10/18 23:42 99.3 F 78 16 116/57 L 97 Admit Weight 119 lb 11.376 oz Weight 108 lb 1 oz 08/10/18 08/11/18 08/12/18 06:59 06:59 07:59 Intake Total 300 1684 Output Total 500 Balance 300 1184 - Physical Examination General/Neuro: alert & oriented x3 Neck: no JVD present Lungs: other: (few scattered rhonchi) Heart: other: (IRR ) Abdomen: NT/ND Extremities: other: (no edema) - Telemetry Telemetry Rhythm: AF - Labs Result Diagrams: 08/11/18 06:32 08/11/18 06:33 Troponin/CKMB Troponin I 0.010 ng/mL (< 0.028) 08/09/18 23:27 - Assessment/Plan 1. Acute CHF - unknown type 2. E.Coli UTI 3. Chronic AF 4. CAD s/p CABG 5. s/p TAA repair 6. s/p AVR and MV repair 7. Acute bronchitis 8. Hypokalemia Improved overall. ECHO and repeat CXR pending. Replace K+. Pt seen and examined. Pt appears much better today. ECho with normal EF. AV and MV functioning normally. CXR without acute process. Last EKG in office in 2018 still in afib. Not felt to be PAF. Pt has lost 6 lbs overnight with diuresis. LIkely Diastolic dysfunction
--- NOTE | 2018-08-11 12:14 | RAD ---
TWO VIEWS OF THE CHEST: COMPARISON: 05/20/2013, 08/09/2018. HISTORY: Shortness of breath with fever and cough. FINDINGS: Two views of the chest show a normal-size cardiomediastinal silhouette. The patient is status post a ortic valve repair/replacement. There is no evidence of consolidation, mass, or pleural effusion. I ncreased interstitial lung markings are present. IMPRESSION: No evidence of acute cardiopulmonary disease. POS: [facility]
[2018-08-11] MEDS: cefTRIAXone\\ROCEPHIN 1 GM in Sodium Chloride 0.9% 100 ML IVPB SCH (17:52)
[2018-08-11] MEDS: Potassium Chloride 20 MEQ TAB PO SCH (17:52)
[2018-08-11] MEDS: Warfarin Sodium 5 MG TAB PO SCH (17:52)
[2018-08-11] MEDS ORDERED: Ondansetron ODT 4 MG TAB PO PRN (19:42)
[2018-08-11] MEDS: Atorvastatin Calcium 40 MG TAB PO SCH (21:01)
[2018-08-12] MEDS: Diabetic Tussin 200 MG/10 ML UDCUP PO PRN ×3 (04:21→21:19)
[2018-08-12] MEDS: Furosemide 40 MG/4 ML VIAL SLOW IVP SCH (05:43)
[2018-08-12 06:47] LABS: INR-International Normal Ratio 3.5; Prothrombin Time 34.8 SEC (12.0-14.7)
[2018-08-12 06:50] LABS: Band 4 % (5-11); Eosinophils 1 % (0-10); Hemoglobin 13.4 g/dL (12.0-16.0); Lymphocytes 20 % (21-51); MDiff Complete? YES; Mean Corpuscular HGB CONC 32.5 g/dL (32.0-36.0); Mean Corpuscular Hemoglobin 31.1 pg (27.0-31.0); Mean Corpuscular Volume 95.4 fL (78.0-98.0); Mean Platelet Volume 6.7 fL (7.4-10.4); Monocytes 13 % (0-10); Neutrophil 62 % (42-75); Platelet Count 498 thou/uL (130-400); Platelet Morphology Comment Appears Increased; RBC Distribution Width 13.6 % (11.5-14.5); Red Blood Cell (RBC) Count 4.32 mill/uL (4.20-5.40); White Blood Cell (WBC) Count 8.6 thou/uL (4.8-10.8)
[2018-08-12 06:55] LABS: Anion Gap 12 mmol/L (10-20); BUN (Urea Nitrogen) 40 mg/dL (9.8-20.1); Calc. Creatinine Clearance 31 mL/min (70-130); Calcium 8.8 mg/dL (7.8-10.44); Carbon Dioxide 29 mmol/L (23-31); Chloride 95 mmol/L (98-107); Estimated GFR-MDRD 53; Glucose 113 mg/dL (83-110); Magnesium 1.7 mg/dL (1.6-2.6); Potassium 3.6 mmol/L (3.5-5.1); Sodium 132 mmol/L (136-145)
[2018-08-12] MEDS: Carvedilol 3.125 MG TAB PO SCH ×2 (08:51→18:05)
[2018-08-12] MEDS: Ferrous Sulfate 325 MG TAB PO SCH ×2 (08:52→21:18)
[2018-08-12] MEDS: Famotidine 20 MG TAB PO SCH ×2 (08:52→21:17)
[2018-08-12] MEDS: guaiFENesin ER 600 MG TAB PO SCH ×2 (08:52→21:18)
[2018-08-12] MEDS: Aspirin Chewable 81 MG TAB PO SCH (08:52)
[2018-08-12] MEDS: Losartan 25 MG TAB PO SCH (08:53)
[2018-08-12] MEDS: Potassium Chloride 20 MEQ TAB PO SCH (08:53)
[2018-08-12] MEDS: Folic Acid 1 MG TAB PO SCH (08:53)
[2018-08-12] MEDS: Doxycycline 100 MG CAP PO SCH ×2 (08:53→21:17)
[2018-08-12] MEDS: Ezetimibe 10 MG TAB PO SCH (08:54)
[2018-08-12] MEDS: Pantoprazole 40 MG GRANULES PACKET PO SCH (08:54)
--- NOTE | 2018-08-12 09:43 | PDOC.PN ---
- Subjective Encounter Start Date: 08/12/18 Encounter Start Time: 07:50 pt has cough, no fever, less dyspnea, no chest pain - Objective MAR Reviewed: Yes Vital Signs & Weight: Vital Signs (12 hours) Temp Pulse Resp BP Pulse Ox 08/12/18 08:43 97.6 F 76 18 126/72 97 08/12/18 03:50 98 F 65 20 117/59 L 97 Weight Admit Weight 119 lb 11.376 oz Weight 107 lb 8 oz I&O: 08/11/18 08/12/18 08/13/18 05:59 06:59 06:59 Intake Total Output Total Balance Result Diagrams: 08/12/18 05:37 08/12/18 05:37 EKG Reviewed by me: Yes Phys Exam - Physical Examination Constitutional: NAD HEENT: PERRLA, moist MMs, sclera anicteric Neck: no JVD, supple Respiratory: no wheezing, no rhonchi coarse sound+ Cardiovascular: RRR, no significant murmur, no rub Gastrointestinal: soft, non-tender, no distention, positive bowel sounds Musculoskeletal: no edema, pulses present Neurological: non-focal, normal sensation Lymphatic: no nodes Psychiatric: normal affect, A&O x 3 Skin: no rash, normal turgor Dx/Plan (1) Acute on chronic diastolic ACC/AHA stage C congestive heart failure Code(s): I50.33 - ACUTE ON CHRONIC DIASTOLIC (CONGESTIVE) HEART FAILURE Status : Acute (2) Acute bronchitis Code(s): J20.9 - ACUTE BRONCHITIS, UNSPECIFIED Status: Acute (3) Hypokalemia Code(s): E87.6 - HYPOKALEMIA Status: Acute (4) UTI (urinary tract infection) Status: Acute (5) CAD (coronary artery disease) Code(s): I25.10 - ATHSCL HEART DISEASE OF [place] CORONARY ARTERY W/O ANG PCTRS Status: Chronic Comment: Chronic, stable (6) Chronic anticoagulation Code(s): Z79.01 - GROUP HOME (CURRENT) USE OF ANTICOAGULANTS Status: Chronic (7) H/O aortic valve replacement Code(s): Z95.2 - PRESENCE OF PROSTHETIC HEART VALVE Status: Chronic (8) H/O mitral valve repair Code(s): Z98.890 - OTHER SPECIFIED POSTPROCEDURAL STATES Status: Chronic (9) HTN (hypertension) Code(s): I10 - ESSENTIAL (PRIMARY) HYPERTENSION Status: Chronic Qualifiers: (10) Hx of cancer of lung Code(s): Z85.118 - PERSONAL HISTORY OF MALIGNANT NEOPLASM OF BRONCHUS AND LUNG Status: Chronic (11) Hx of coronary artery bypass graft Status: Chronic (12) Macrocytic anemia Code(s): D53.9 - NUTRITIONAL ANEMIA, UNSPECIFIED Status: Chronic (13) 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 Review of Systems - Review of Systems Constitutional: negative: fever, chills, sweats, weakness, malaise, other ENT: negative: Ear Pain, Ear Discharge, Nose Pain, Nose Discharge, Nose Congestion, Mouth Pain, Mouth Swelling, Throat Pain, Throat Swelling, Other Respiratory: Cough, SOB with Excertion, Sputum. negative: Dry, Shortness of Breath, Hemoptysis, Pleuritic Pain, Wheezing Cardiovascular: negative: chest pain, palpitations, orthopnea, paroxysmal nocturnal dyspnea, edema, light headedness, other Gastrointestinal: negative: Nausea, Vomiting, Abdominal Pain, Diarrhea, Constipation, Melena, Hematochezia, Other Genitourinary: negative: Dysuria, Frequency, Incontinence, Hematuria, Retention , Other Musculoskeletal: negative: Neck Pain, Shoulder Pain, Arm Pain, Back Pain, Hand Pain, Leg Pain, Foot Pain, Other - Medications/Allergies Allergies/Adverse Reactions: Allergies Allergy/AdvReac Type Severity Reaction Status Date / Time tramadol Allergy Intermediate Verified 08/09/18 21:50 codeine Allergy Mild Emesis Verified 08/09/18 21:50 Medications: Current Medications Acetaminophen (Tylenol) 650 mg PO Q4H PRN PRN Reason: Headache/Fever/Mild Pain (1-3) Last Admin: 08/10/18 20:52 Dose: 650 mg Acetaminophen (Tylenol) 500 mg PO Q6HR PRN PRN Reason: Pain Aspirin (Aspirin Chewable) 81 mg PO DAILY [facility] Last Admin: 08/12/18 08:52 Dose: 81 mg Atorvastatin Calcium (Lipitor) 80 mg PO HS [facility] Last Admin: 08/11/18 21:01 Dose: 80 mg Carvedilol (Coreg) 3.125 mg PO BID-[facility] Last Admin: 08/12/18 08:51 Dose: 3.125 mg Diltiazem HCl (Cardizem Cd) 180 mg PO DAILY [facility] Last Admin: 08/12/18 08:53 Dose: 180 mg Doxycycline Hyclate (Vibramycin) 100 mg PO BID [facility] Last Admin: 08/12/18 08:53 Dose: 100 mg Ezetimibe (Zetia) 10 mg PO DAILY [facility] Last Admin: 08/12/18 08:54 Dose: 10 mg Famotidine (Pepcid) 20 mg PO BID [facility] Last Admin: 08/12/18 08:52 Dose: 20 mg Ferrous Sulfate (Feosol) 325 mg PO BID [facility] Last Admin: 08/12/18 08:52 Dose: 325 mg Folic Acid (Folvite) 1 mg PO DAILY [facility] Last Admin: 08/12/18 08:53 Dose: 1 mg Furosemide (Lasix) 40 mg SLOW IVP 0600,1400 [facility] Last Admin: 08/12/18 05:43 Dose: 40 mg Guaifenesin (Robitussin Sf) 300 mg PO Q4H PRN PRN Reason: Cough Last Admin: 08/12/18 08:55 Dose: 300 mg Guaifenesin (Mucinex) 600 mg PO Q12HR [facility] Last Admin: 08/12/18 08:52 Dose: 600 mg Ceftriaxone Sodium 1 gm/ (Sodium Chloride) 100 mls @ 200 mls/hr IVPB Q24HR [facility] Last Admin: 08/11/18 17:52 Dose: 100 mls Losartan Potassium (Cozaar) 25 mg PO DAILY [facility] Last Admin: 08/12/18 08:53 Dose: 25 mg Miscellaneous Medication (Pharmacy To Dose) 1 each PO .[facility] Ondansetron HCl (Zofran Odt) 4 mg PO Q6H PRN PRN Reason: Nausea/Vomiting Last Admin: 08/11/18 21:01 Dose: 4 mg Pantoprazole Sodium (Protonix) 40 mg PO DAILY [facility] Last Admin: 08/12/18 08:54 Dose: 40 mg Potassium Chloride (K-Dur) 20 meq PO BID-[facility] Last Admin: 08/12/18 08:53 Dose: 20 meq Ranolazine (Ranexa) 500 mg PO DAILY [facility] Last Admin: 08/12/18 08:53 Dose: 500 mg Sodium Chloride (Flush - Normal Saline) 10 ml IVF PRN PRN PRN Reason: Saline Flush Last Admin: 08/12/18 08:56 Dose: 10 ml Warfarin Sodium (Coumadin) 5 mg PO 1700 [facility] Last Admin: 08/11/18 17:52 Dose: 5 mg
--- NOTE | 2018-08-12 11:29 | PDOC.CTH ---
Cardiology Progress Note - Subjective Patient feeling ok overall. About to shower. Cough stable. Less phlegm. - Objective Vital Signs Temp Pulse Resp BP Pulse Ox 08/12/18 08:43 97.6 F 76 18 126/72 97 08/12/18 03:50 98 F 65 20 117/59 L 97 Admit Weight 119 lb 11.376 oz Weight 107 lb 8 oz 08/11/18 08/12/18 08/13/18 05:59 06:59 06:59 Intake Total Output Total Balance - Physical Examination General/Neuro: alert & oriented x3 Neck: no JVD present Lungs: CTA Heart: other: (IRR) Abdomen: NT/ND - Telemetry Telemetry Rhythm: AF - Labs Result Diagrams: 08/12/18 05:37 08/12/18 05:37 Troponin/CKMB Troponin I 0.010 ng/mL (< 0.028) 08/09/18 23:27 - Assessment/Plan 1. Acute on chronic diastolic CHF 2. E.Coli UTI 3. Chronic AF 4. CAD s/p CABG 5. s/p TAA repair 6. s/p AVR and MV repair 7. Acute bronchitis 8. Hypokalemia Improved. Change lasix to po tomorrow. Shower today. D/C planning.
[2018-08-12] MEDS: Warfarin Sodium 5 MG TAB PO SCH (18:05)
[2018-08-12] MEDS: cefTRIAXone\\ROCEPHIN 1 GM in Sodium Chloride 0.9% 100 ML IVPB SCH (18:06)
[2018-08-12] MEDS: Atorvastatin Calcium 40 MG TAB PO SCH (21:17)
[2018-08-13 05:09] LABS: #Basophils 0.1 thou/uL (0.0-0.2); #Eosinphils 0.2 thou/uL (0.0-0.7); #Lymphocytes 1.4 thou/uL (1.20-3.40); #Monocytes 1.4 thou/uL (0.11-0.59); #Neutrophils 6.9 thou/uL (1.40-6.50); %Basophils 0.7 % (0.0-1.0); %Eosinophils 2.2 % (0.0-10.0); %Lymphocytes 13.5 % (21.0-51.0); %Monocytes 14.2 % (0.0-10.0); %Neutrophils 69.4 % (42.0-75.0); Hemoglobin 13.2 g/dL (12.0-16.0); Mean Corpuscular HGB CONC 32.3 g/dL (32.0-36.0); Mean Corpuscular Hemoglobin 31.2 pg (27.0-31.0); Mean Corpuscular Volume 96.7 fL (78.0-98.0); Mean Platelet Volume 6.3 fL (7.4-10.4); Platelet Count 547 thou/uL (130-400); RBC Distribution Width 13.6 % (11.5-14.5); Red Blood Cell (RBC) Count 4.23 mill/uL (4.20-5.40); White Blood Cell (WBC) Count 9.9 thou/uL (4.8-10.8)
[2018-08-13 05:27] LABS: INR-International Normal Ratio 3.8; Prothrombin Time 37.1 SEC (12.0-14.7)
[2018-08-13 05:34] LABS: Anion Gap 11 mmol/L (10-20); BUN (Urea Nitrogen) 28 mg/dL (9.8-20.1); Calc. Creatinine Clearance 41 mL/min (70-130); Calcium 8.7 mg/dL (7.8-10.44); Carbon Dioxide 29 mmol/L (23-31); Chloride 95 mmol/L (98-107); Estimated GFR-MDRD 72; Glucose 106 mg/dL (83-110); Potassium 3.4 mmol/L (3.5-5.1); Sodium 132 mmol/L (136-145)
[2018-08-13] MEDS ORDERED: Furosemide 40 MG TAB PO SCH (07:30)
[2018-08-13] MEDS: Ezetimibe 10 MG TAB PO SCH (08:45)
[2018-08-13] MEDS: Carvedilol 3.125 MG TAB PO SCH (08:46)
[2018-08-13] MEDS: guaiFENesin ER 600 MG TAB PO SCH (08:46)
[2018-08-13] MEDS: Ferrous Sulfate 325 MG TAB PO SCH (08:46)
[2018-08-13] MEDS: Doxycycline 100 MG CAP PO SCH (08:46)
[2018-08-13] MEDS: Famotidine 20 MG TAB PO SCH (08:46)
[2018-08-13] MEDS: Folic Acid 1 MG TAB PO SCH (08:46)
[2018-08-13] MEDS: Losartan 25 MG TAB PO SCH (08:46)
[2018-08-13] MEDS: Aspirin Chewable 81 MG TAB PO SCH (08:46)
[2018-08-13] MEDS: Pantoprazole 40 MG GRANULES PACKET PO SCH (08:47)
[2018-08-13] MEDS ORDERED: Potassium Chloride 20 MEQ TAB PO SCH (09:00)
[2018-08-13] MEDS ORDERED: Furosemide 40 MG/4 ML VIAL SLOW IVP SCH (09:00)
--- NOTE | 2018-08-13 10:23 | PDOC.PN ---
- Subjective Encounter Start Date: 08/13/18 Encounter Start Time: 07:10 Patient seen and examined. No new complaints. No overnight events - Objective MAR Reviewed: Yes Vital Signs & Weight: Vital Signs (12 hours) Temp Pulse Resp BP Pulse Ox 08/13/18 08:42 98.7 F 83 18 160/93 H 93 L 08/13/18 04:00 98.2 F 90 18 148/72 H 92 L Weight Admit Weight 119 lb 11.376 oz Weight 119 lb I&O: 08/12/18 08/13/18 08/14/18 06:59 06:59 06:59 Intake Total 970 Output Total Balance 970 Result Diagrams: 08/13/18 04:53 08/13/18 04:53 EKG Reviewed by me: Yes Phys Exam - Physical Examination Constitutional: NAD HEENT: PERRLA, moist MMs, sclera anicteric Neck: no JVD, supple Respiratory: no wheezing, no rales, no rhonchi Cardiovascular: RRR, no significant murmur, no rub Gastrointestinal: soft, non-tender, no distention, positive bowel sounds Musculoskeletal: no edema, pulses present Neurological: non-focal, normal sensation Lymphatic: no nodes Psychiatric: normal affect Skin: no rash, normal turgor Dx/Plan (1) Acute on chronic diastolic ACC/AHA stage C congestive heart failure Code(s): I50.33 - ACUTE ON CHRONIC DIASTOLIC (CONGESTIVE) HEART FAILURE Status : Acute (2) Acute bronchitis Code(s): J20.9 - ACUTE BRONCHITIS, UNSPECIFIED Status: Acute (3) Hypokalemia Code(s): E87.6 - HYPOKALEMIA Status: Acute (4) UTI (urinary tract infection) Status: Acute (5) CAD (coronary artery disease) Code(s): I25.10 - ATHSCL HEART DISEASE OF [place] CORONARY ARTERY W/O ANG PCTRS Status: Chronic Comment: Chronic, stable (6) Chronic anticoagulation Code(s): Z79.01 - SITE [employer]ER (CURRENT) USE OF ANTICOAGULANTS Status: Chronic (7) H/O aortic valve replacement Code(s): Z95.2 - PRESENCE OF PROSTHETIC HEART VALVE Status: Chronic (8) H/O mitral valve repair Code(s): Z98.890 - OTHER SPECIFIED POSTPROCEDURAL STATES Status: Chronic (9) HTN (hypertension) Code(s): I10 - ESSENTIAL (PRIMARY) HYPERTENSION Status: Chronic Qualifiers: (10) Hx of cancer of lung Code(s): Z85.118 - PERSONAL HISTORY OF MALIGNANT NEOPLASM OF BRONCHUS AND LUNG Status: Chronic (11) Hx of coronary artery bypass graft Status: Chronic (12) Macrocytic anemia Code(s): D53.9 - NUTRITIONAL ANEMIA, UNSPECIFIED Status: Chronic (13) 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 Review of Systems - Review of Systems ENT: negative: Ear Pain, Ear Discharge, Nose Pain, Nose Discharge, Nose Congestion, Mouth Pain, Mouth Swelling, Throat Pain, Throat Swelling, Other Respiratory: negative: Cough, Dry, Shortness of Breath, Hemoptysis, SOB with Excertion, Pleuritic Pain, Sputum, Wheezing Cardiovascular: negative: chest pain, palpitations, orthopnea, paroxysmal nocturnal dyspnea, edema, light headedness, other Gastrointestinal: negative: Nausea, Vomiting, Abdominal Pain, Diarrhea, Constipation, Melena, Hematochezia, Other Genitourinary: negative: Dysuria, Frequency, Incontinence, Hematuria, Retention , Other Musculoskeletal: negative: Neck Pain, Shoulder Pain, Arm Pain, Back Pain, Hand Pain, Leg Pain, Foot Pain, Other Skin: negative: Rash, Lesions, Brett, Bruising, Other - Medications/Allergies Allergies/Adverse Reactions: Allergies Allergy/AdvReac Type Severity Reaction Status Date / Time tramadol Allergy Intermediate Verified 08/09/18 21:50 codeine Allergy Mild Emesis Verified 08/09/18 21:50 Medications: Current Medications Acetaminophen (Tylenol) 650 mg PO Q4H PRN PRN Reason: Headache/Fever/Mild Pain (1-3) Last Admin: 08/10/18 20:52 Dose: 650 mg Acetaminophen (Tylenol) 500 mg PO Q6HR PRN PRN Reason: Pain Aspirin (Aspirin Chewable) 81 mg PO DAILY [facility] Last Admin: 08/13/18 08:46 Dose: 81 mg Atorvastatin Calcium (Lipitor) 80 mg PO HS [facility] Last Admin: 08/12/18 21:17 Dose: 80 mg Carvedilol (Coreg) 3.125 mg PO BID-WM [facility] Last Admin: 08/13/18 08:46 Dose: 3.125 mg Diltiazem HCl (Cardizem Cd) 180 mg PO DAILY [facility] Last Admin: 08/13/18 08:46 Dose: 180 mg Doxycycline Hyclate (Vibramycin) 100 mg PO BID [facility] Last Admin: 08/13/18 08:46 Dose: 100 mg Ezetimibe (Zetia) 10 mg PO DAILY [facility] Last Admin: 08/13/18 08:45 Dose: 10 mg Famotidine (Pepcid) 20 mg PO BID [facility] Last Admin: 08/13/18 08:46 Dose: 20 mg Ferrous Sulfate (Feosol) 325 mg PO BID [facility] Last Admin: 08/13/18 08:46 Dose: 325 mg Folic Acid (Folvite) 1 mg PO DAILY [facility] Last Admin: 08/13/18 08:46 Dose: 1 mg Furosemide (Lasix) 40 mg PO DAILY-[facility] Last Admin: 08/13/18 08:46 Dose: 40 mg Guaifenesin (Robitussin Sf) 300 mg PO Q4H PRN PRN Reason: Cough Last Admin: 08/12/18 21:19 Dose: 300 mg Guaifenesin (Mucinex) 600 mg PO Q12HR [facility] Last Admin: 08/13/18 08:46 Dose: 600 mg Ceftriaxone Sodium 1 gm/ (Sodium Chloride) 100 mls @ 200 mls/hr IVPB Q24HR [facility] Last Admin: 08/12/18 18:06 Dose: 100 mls Losartan Potassium (Cozaar) 25 mg PO DAILY [facility] Last Admin: 08/13/18 08:46 Dose: 25 mg Miscellaneous Medication (Pharmacy To Dose) 1 each PO .W[facility]FARIN [facility] Ondansetron HCl (Zofran Odt) 4 mg PO Q6H PRN PRN Reason: Nausea/Vomiting Last Admin: 08/11/18 21:01 Dose: 4 mg Pantoprazole Sodium (Protonix) 40 mg PO DAILY [facility] Last Admin: 08/13/18 08:47 Dose: 40 mg Potassium Chloride (K-Dur) 20 meq PO DAILY [facility] Last Admin: 08/13/18 08:46 Dose: 20 meq Ranolazine (Ranexa) 500 mg PO DAILY [facility] Last Admin: 08/13/18 08:46 Dose: 500 mg Sodium Chloride (Flush - Normal Saline) 10 ml IVF PRN PRN PRN Reason: Saline Flush Last Admin: 08/12/18 18:06 Dose: 10 ml
--- NOTE | 2018-08-13 10:41 | PQF ---
DATE: 08-13-18 ATTN: DR. STEPHANIE SANCHEZ Please exercise your independent, professional judgment in responding to the clarification form. Clinical indicators are provided on the bottom of this form for your review Please check appropriate box(s) to clarify if the following diagnosis has been ruled in or ruled out: PNEUMONIA [ ] Ruled in diagnosis [ ] Continue to treat [ ] Resolved [ ] Ruled out diagnosis [ x ] Other diagnosis acute bronchitis [ ] Unable to determine In addition, please specify: Present on Admission (POA): [ x ] Yes [ ] No [ ] Unable to determine For continuity of documentation, please document condition throughout progress notes and discharge summary. Thank You. CLINICAL INDICATORS - SIGNS / SYMPTOMS / LABS ER: SOB, COUGH FOR X2 DAYS, PRODUCTIVE COUGH WITH YELLOW PHLEGM, PT REPORTS SHE HAD FEVER YESTERDAY PN DR. SANDOVAL 08-10-18: ACUTE BRONCHITIS? PNEUMONIA - PROB PNEUMOCOCCAL RISK FACTORS: ER: SOB, COUGH FOR X2 DAYS, PRODUCTIVE COUGH WITH YELLOW PHLEGM, PT REPORTS SHE HAD FEVER YESTERDAY TREATMENTS PN DR. SANDOVAL 08-10-18: DD CEFTRIAXONE WITH DOXY, CXR IN AM (This form is maintained as a part of the permanent medical record) 2014 [employer], [place]. All Rights Reserved [email or web address] [email or web address] Office: [phone] [email or web address]
--- NOTE | 2018-08-13 11:09 | DIS ---
DATE OF ADMISSION: 08/09/2018 DATE OF DISCHARGE: 08/13/2018 PRIMARY CARE PHYSICIAN: Albert Doran. DISCHARGE DISPOSITION: Home with home health. PRIMARY DISCHARGE DIAGNOSES: 1. Acute bronchitis. 2. Acute on chronic diastolic stage C congestive heart failure. 3. Urinary tract infection. 4. Hypokalemia. SECONDARY DISCHARGE DIAGNOSES: 1. Severe MR. 2. Physical deconditioning. 3. Moderate TR. 4. Macrocytic anemia. 5. Coronary artery bypass grafting. 6. History of lung cancer. 7. Hypertension. 8. History of mitral valve repair. 9. History of aortic valve replacement. 10. Chronic anticoagulation. 11. Coronary artery disease. 12. Chronic diastolic heart failure, stage C. PRIMARY PROCEDURE/OPERATION: None. RADIOLOGICAL INVESTIGATION: Chest x-ray, echocardiography. SIGNIFICANT LABORATORY DATA: WBC 9.9, hemoglobin 13.2, and platelets 547. INR to 3.8. Sodium 132, creatinine 0.76, calcium 8.7. DISCHARGE MEDICATIONS: The patient is advised to hold warfarin therapy for today and tomorrow and the patient is instructed to start on August 15, 2018. The patient will continue; 1. Aspirin 81 mg daily. 2. Lipitor 80 mg p.o. at bedtime. 3. Zetia 10 mg daily. 4. Ferrous sulfate 325 mg b.i.d. 5. Folic acid 0.8 mg daily. 6. Hydroxyurea 500 mg b.i.d. 7. Losartan 25 mg daily. 8. Protonix 40 mg daily. 9. Potassium chloride 20 mEq p.o. daily. 10. Ranexa 500 mg p.o. daily. 11. Warfarin 5 mg p.o. daily as directed. 12. Omnicef 300 mg twice daily for 5 more days. 13. Coreg 3.125 mg b.i.d. 14. Mucinex 600 mg twice daily. 15. Cardizem CD 180 mg p.o. daily. 16. Doxycycline 100 mg p.o. b.i.d. for 5 days. 17. Lasix 40 mg p.o. daily. 18. Florastor 250 mg p.o. daily. CONTRAINDICATION: None. CODE STATUS: Full code. INPATIENT CUTTING MACHINE OFFBEARER: Cardiology group was following while in hospital. TEST RESULT PENDING ON DISCHARGE: None. ALLERGIES: TRAMADOL AND CODEINE. DISCHARGE PLAN: Posthospital, the patient will follow up with primary care physician. The patient will make appointment with heart failure clinic. HOSPITAL COURSE: An 87-year-old female, who was admitted by nurse practitioner, Prosper Wang. Please see her H and P for further details. On admission, the patient was having cough, productive of yellowish-white sputum, and at the same time, she was experiencing increasing shortness of breath. She had x-ray of chest, which was consistent with bronchitis and CHF exacerbation. The patient was admitted to telemetry floor and we treated her with empiric antibiotic therapy for bronchitis as well as Lasix for congestive heart failure exacerbation. Cardiology was consulted. Echocardiography was obtained, which showed normal EF. While in hospital, the patient had supratherapeutic INR and that is why we advised her to hold warfarin therapy for today and tomorrow and then resume it as per previous dose. The patient and family member are not interested in sending her to snf home, rather they wanted to go home with home health. Home health arranged with the help of welfare case worker. All new medication prescription sent to her pharmacy. The patient is seen and examined at bedside today. Plan of care discussed with the family member. The patient is medically stable for discharge today. Job ID: [id number]
[2018-08-13 12:26] VITALS: BP 108/57; TEMP 98.4
== END 2018-08-13 14:46 | disposition home health service (06) | DRG 292 ==
LOC: ERS 13:55 → 2NO 18:53
PROVIDERS: ADMIT Emergency Medicine; ATTEND Emergency Medicine
DX: I11.0 Hypertensive heart disease with heart failure (principal); N39.0 Urinary tract infection, site not specified; I50.33 Acute on chronic diastolic (congestive) heart failure; J20.9 Acute bronchitis, unspecified; E87.6 Hypokalemia; I08.1 Rheumatic disorders of both mitral and tricuspid valves; D53.9 Nutritional anemia, unspecified; I25.10 Atherosclerotic heart disease of native coronary artery without angina pectoris; Z95.1 Presence of aortocoronary bypass graft; Z85.118 Personal history of other malignant neoplasm of bronchus and lung; Z79.01 Long term (current) use of anticoagulants; Z95.2 Presence of prosthetic heart valve; B96.20 Unspecified Escherichia coli [E. coli] as the cause of diseases classified elsewhere; I48.2 Chronic atrial fibrillation
CPT/HCPCS: 36415; 71045; 71046; 80048; 80053; 81003; 81015; 82248; 83605; 83735; 83880; 84100; 84443; 84484; 85025; 85610; 85730; 87040; 87077; 87086; 87186; 87804; 93005; 93306; 93798; J0696; J1940; J7050; Q0162

== ENCOUNTER 2018-09-13 17:07 | Observation (INO) | payer MEDICARE, BC ==
--- NOTE | 2018-09-13 18:50 | RAD ---
CHEST ONE VIEW: 09/13/18 HISTORY: Chest pain. COMPARISON: Radiograph 08/11/18. FINDINGS: Heart size is mildly enlarged. Lungs are hyperinflated. Scarring in both lung apices. Pulmonary arter ies are dilated. Multiple midline sternotomy wires are similar. No acute osseous abnormality. IMPRESSION: 1. Cardiomegaly and obstructive pulmonary disease. Chronic findings. No acute abnormality. 2. Unchanged deformity right posterior 6th rib of uncertain significance. This may be postsurgic al in nature. POS: HOME
[2018-09-13 19:03] LABS: #Basophils 0.1 thou/uL (0.0-0.2); #Eosinphils 0.2 thou/uL (0.0-0.7); #Lymphocytes 1.4 thou/uL (1.20-3.40); #Monocytes 0.8 thou/uL (0.11-0.59); #Neutrophils 5.4 thou/uL (1.40-6.50); %Basophils 1.2 % (0.0-1.0); %Eosinophils 2.2 % (0.0-10.0); %Lymphocytes 18.2 % (21.0-51.0); %Monocytes 9.5 % (0.0-10.0); %Neutrophils 68.8 % (42.0-75.0); Hemoglobin 12.3 g/dL (12.0-16.0); Mean Corpuscular HGB CONC 33.6 g/dL (32.0-36.0); Mean Corpuscular Hemoglobin 31.7 pg (27.0-31.0); Mean Corpuscular Volume 94.4 fL (78.0-98.0); Mean Platelet Volume 6.1 fL (7.4-10.4); Platelet Count 569 thou/uL (130-400); RBC Distribution Width 15.3 % (11.5-14.5); Red Blood Cell (RBC) Count 3.89 mill/uL (4.20-5.40); White Blood Cell (WBC) Count 7.9 thou/uL (4.8-10.8)
[2018-09-13 19:09] LABS: INR-International Normal Ratio 1.7; PTT 39.2 SEC (22.9-36.1); Prothrombin Time 19.8 SEC (12.0-14.7)
[2018-09-13 19:30] LABS: ALT (SGPT) 17 U/L (8-55); AST (SGOT) 26 U/L (5-34); Albumin 3.7 g/dL (3.4-4.8); Alkaline Phosphatase 105 U/L (40-150); Anion Gap 15 mmol/L (10-20); BUN (Urea Nitrogen) 33 mg/dL (9.8-20.1); Bilirubin, Total 1.3 mg/dL (0.2-1.2); Calc. Creatinine Clearance 0 mL/min (70-130); Calcium 8.9 mg/dL (7.8-10.44); Carbon Dioxide 26 mmol/L (23-31); Chloride 99 mmol/L (98-107); Estimated GFR-MDRD 44; Globulin 3.3 g/dL (2.4-3.5); Glucose 99 mg/dL (83-110); Magnesium 2.1 mg/dL (1.6-2.6); Potassium 4.5 mmol/L (3.5-5.1); Sodium 135 mmol/L (136-145)
[2018-09-13] MEDS ORDERED: Enoxaparin Sodium 60 MG/0.6 ML SYRINGE ONE (20:30)
[2018-09-13 22:23] LABS: Troponin I Less than 0.010 ng/mL (< 0.028)
[2018-09-14 00:04] VITALS: BMI 20.6
[2018-09-14 01:32] LABS: Troponin I Less than 0.010 ng/mL (< 0.028)
--- NOTE | 2018-09-14 02:54 | HP ---
CHIEF COMPLAINT: Fatigue. HISTORY OF PRESENT ILLNESS: This patient is an 87-year-old female with a history of prior traditional open heart aortic valve replacement as well as a mitral valve annuloplasty, history of coronary artery disease, status post bypass with some occluded grafts, who was admitted here and discharged one month ago for bronchitis, urinary tract infection, and some hypokalemia. The patient reports since that discharge she has actually been feeling quite well. Reports her energy level was coming back and her appetite was improving. She went out to see her back padder today when she returned home she felt abnormal. States she was fairly profoundly fatigued and slightly lightheaded. She had no chest pain or specifically shortness of breath. She checked her oxygen level with her own apparatus and her sats were 99%. However, her heart rate was low. She called her home health nurse who advised her to continue to monitor closely and if it dropped into the 40s, to come to the Emergency Department that what she did and that is what happened. Currently, she is feeling back to normal and has no specific complaints. In the emergency department, her heart rate has been documented as low as 48, but has steadily increased since she has been here. REVIEW OF SYSTEMS: All systems reviewed, all pertinent positives and negatives noted in the history of present illness. PAST MEDICAL HISTORY: Notable for coronary artery disease, atrial fibrillation/flutter, hyperlipidemia, hypertension, chronic systolic and diastolic heart failure, although most recent echocardiogram revealed an ejection fraction of 50% to 55%. She has a history of mitral valve annuloplasty with subsequent severe mitral regurgitation. She has a bioprosthetic aortic valve and is on chronic anticoagulation. PAST SURGICAL HISTORY: Coronary artery bypass x5 vessels, hysterectomy, right hip replacement, left upper lobectomy, aortic valve replaced in April of 2017, and mitral valve annuloplasty. FAMILY HISTORY: Reviewed with nothing contributory relative to this admission. SOCIAL HISTORY: Nonsmoker, nondrinker. She is still highly functional. She is a DNR and either of her daughters would be her surrogate decision maker. ALLERGIES: TRAMADOL AND CODEINE. CURRENT MEDICATIONS: 1. Diltiazem 180 mg daily. 2. Carvedilol 3.125 one p.o. b.i.d. 3. Pantoprazole 40 mg daily. 4. Losartan 25 daily. 5. Warfarin 5 mg daily x6 days per week and 2.5 mg one day per week. 6. Atorvastatin 80 mg daily. 7. Lasix 40 mg daily. 8. Breo Ellipta 100/25 inhalation p.r.n. 9. Ranexa 500 mg p.o. b.i.d. PHYSICAL EXAMINATION: VITAL SIGNS: BP 136/58, pulse is currently 70, respirations 18, temperature 97.4, O2 saturation 94% on room air. GENERAL APPEARANCE: Age-appropriate female, very pleasant, awake, alert, oriented. HEENT: PERRL. She has no OP lesions. NECK: Has some JVD. HEART: Irregularly irregular. She has a prominent diastolic murmur heard throughout the precordium. LUNGS: Clear to auscultation bilaterally with good chest wall expansion and air exchange. ABDOMEN: Soft, nontender, and nondistended. Positive bowel sounds. No masses. No organomegaly. EXTREMITIES: Have no cyanosis, clubbing, or edema. NEUROLOGIC: She is fully intact and fully oriented. PSYCHIATRIC: She has normal affect and behavior. LABORATORY DATA: White count 7.9, hemoglobin 12.3, platelets 569. INR is 1.7, PTT is 39.2. Sodium 135, potassium 4.5, chloride 99, CO2 of 26, BUN 33, creatinine 1.16, glucose 99, total bilirubin is 1.3. Troponin less than 0.011 and less than 0.010. BNP 327. Chest x-ray shows cardiomegaly and obstructive pulmonary disease, which are chronic findings. No acute abnormalities. EKG shows atrial flutter with a rate of 47 with variable block. IMPRESSION AND PLAN: 1. Symptomatic bradycardia with a heart rate reportedly as low as the 30s at home, documented in the 40s here. It has improved throughout the day and she has symptomatically improved as well. We will continue to monitor her overnight, repeat the troponin and hold off on the diltiazem. For her morning dose, we will go ahead and give her the low-dose carvedilol. She is followed by Dr. Carrera and will consult him for further recommendations, although likely will simply need to reduce the diltiazem. The patient does report that there was some conversation about possible pacemaker placement prior to her aortic valve replacement, but that would certainly remain to be seen at this point. 2. Atrial fibrillation/atrial flutter, this is chronic. She is on anticoagulation, very slightly subtherapeutic, and she has received a dose of Lovenox in the emergency department. 3. Acute on chronic renal insufficiency. She appears to have chronic stage 3 kidney disease. However, today her creatinine is higher than it has been since values have been tracked going back to 2012, although only slightly low and appears to be somewhat prerenal. She is on diuretics, but eating and drinking adequately and may simply be due to the bradycardia and reduced perfusion. We will not aggressively hydrate given her cardiac situation, but we will recheck in the morning. 4. Possible congestive heart failure. The patient's BNP is very slightly elevated and is actually lower than it was on her previous visit. Certainly does not appear to be actively decompensated with any pulmonary edema. She has a preserved ejection fraction, but she appears to have significant mitral valve insufficiency based on her previous echo and her exam today. I do not believe there is any specific intervention indicated, although will be judicious with her renal function and hold off on giving aggressive fluids. 5. History of bioprosthetic aortic valve appears to be normally functioning. Continue to monitor. 6. Hypertension. Continue with losartan, again holding the diltiazem because of the bradycardia. Job ID: [id number]
[2018-09-14 06:44] LABS: Anion Gap 12 mmol/L (10-20); BUN (Urea Nitrogen) 28 mg/dL (9.8-20.1); Calc. Creatinine Clearance 33 mL/min (70-130); Calcium 8.9 mg/dL (7.8-10.44); Carbon Dioxide 27 mmol/L (23-31); Chloride 100 mmol/L (98-107); Estimated GFR-MDRD 51; Glucose 183 mg/dL (83-110); Potassium 3.9 mmol/L (3.5-5.1); Sodium 135 mmol/L (136-145)
[2018-09-14] MEDS ORDERED: Furosemide 40 MG TAB PO SCH (07:30)
[2018-09-14] MEDS ORDERED: Carvedilol 3.125 MG TAB PO SCH (08:00)
[2018-09-14] MEDS ORDERED: Losartan 25 MG TAB PO SCH (09:00)
--- NOTE | 2018-09-14 10:05 | PDOC.PN ---
- Subjective Encounter Start Date: 09/14/18 Encounter Start Time: 10:03 Patient seen and examined, continues to be dizzy upon ambulation or when she stands up, no other issues. All questions answered, no family at bedside. - Objective Resuscitation Status - Order Detail: 09/14/18 00:59 Resuscitation Status Routine Co-Sign Provider: Resuscitation Status: PRTL: Chem only Discussed with: Patient Vital Signs & Weight: Vital Signs (12 hours) Temp Pulse Resp BP Pulse Ox 09/14/18 07:28 97.9 F 68 16 141/64 H 94 L 09/14/18 04:04 97.7 F 54 L 16 119/55 L 97 09/13/18 23:47 97.3 F L 64 18 137/64 95 Weight Weight 116 lb 6.4 oz I&O: 09/13/18 09/14/18 09/15/18 06:59 06:59 06:59 Intake Total 300 Output Total 100 Balance 200 Result Diagrams: 09/13/18 18:55 09/14/18 01:01 Phys Exam - Physical Examination Constitutional: NAD HEENT: PERRLA, moist MMs, sclera anicteric Neck: no nodes, no JVD, supple Respiratory: no wheezing, no rales, no rhonchi Cardiovascular: no significant murmur, no rub bradycardia Gastrointestinal: soft, non-tender, no distention Musculoskeletal: no edema, pulses present Dx/Plan (1) Symptomatic bradycardia Code(s): R00.1 - BRADYCARDIA, UNSPECIFIED Status: Acute (2) CAD (coronary artery disease) Code(s): I25.10 - ATHSCL HEART DISEASE OF [place] CORONARY ARTERY W/O ANG PCTRS Status: Chronic Comment: Chronic, stable (3) HTN (hypertension) Code(s): I10 - ESSENTIAL (PRIMARY) HYPERTENSION Status: Chronic Qualifiers: - Plan * pending cardio evaluation, possible pacer placement? defer final decision to cardio * cont current medical management for now * if no pacer will DC in AM * case and plan d/w patient at length, she understood and agreed with this plan.
[2018-09-14 12:17] VITALS: BP 149/73; TEMP 97.6
[2018-09-14] MEDS ORDERED: Warfarin Sodium 2.5 MG TAB PO SCH (17:00)
[2018-09-14] MEDS ORDERED: Warfarin Sodium 5 MG TAB PO SCH (17:00)
[2018-09-14] MEDS ORDERED: Atorvastatin Calcium 40 MG TAB PO SCH (21:00)
--- NOTE | 2018-09-14 21:37 | CON ---
DATE OF CONSULTATION: HISTORY: Marli Krishna is an 87-year-old white female. I have followed since June 1993. She was initially was seen for palpitations occurring for 1 to 1-1/2 years when her blood pressure started to increase. At that time, she would have a rapid heartbeat, associated with shortness of breath with episodes lasting 10 to 40 minutes. Occasionally, she would be lightheaded. Prior to her initial evaluation, she had an episode that lasted 4 to 5 hours. All those episodes had sudden onset and occasionally conclusion. She would have tightness in her chest that would last continuously for 1 to 2 days. EKG revealed normal sinus rhythm with nonspecific ST changes. Holter monitor revealed normal sinus rhythm with nonspecific ST. EKG revealed normal sinus rhythm with nonspecific ST-segment changes. Holter revealed normal sinus rhythm with ventricular and supraventricular ectopic beats. She also had an episode of supraventricular tachycardia with a rate of 170 per minute associated with shortness of breath on 1 occasion. Most of the episodes of supraventricular tachycardia were asymptomatic. She was placed on Isoptin and with that, she had a dramatic reduction in the number of her breathless episodes. Echo revealed normal left ventricular function and trace mitral regurgitation. She underwent treadmill testing with resting EKG revealing low atrial pacemaker. She exercised for 7 minutes. She developed sinus mechanism during exertion which became the predominant rhythm. She had no ST-segment changes. The treadmill was negative for ischemia. Isoptin was further increased from 240 daily to 240 q.a.m. and 120 q.p.m. In July 1996, she did have 1 episode per month lasting approximately 1 minute with her rapid heartbeat. In April 2002, she returned for followup, stating that she had noted rare episodes of chest burning and dyspnea whenever she would climb stairs. These have been occurring for 1 year. The discomfort would last 5-10 minutes and be relieved with rest. She also had discomfort with mowing the yard. She never had any resting or nocturnal episodes. She would also have 1-2 seconds of rapid heartbeat 1 time per month, but it appeared that her supraventricular tachycardia was well controlled. She underwent stress echo testing, exercised for 6 minutes, had minimal ST-segment depression in the inferior leads which resolved in 1 minute. Echo revealed ejection fraction of 60% to 65% with normal wall motion at rest. With stress, she had inferoposterior wall ischemia. She underwent cardiac catheterization which revealed mild inferobasal hypokinesis with ejection fraction of 50% to 55%. There was mild mitral regurgitation. There was a 30% and a 50% proximal LAD stenosis, 90% mid LAD stenosis, 80% first obtuse marginal stenosis, 99% second obtuse marginal. The right coronary artery had a 70% proximal stenosis and then a 99% followed by another 99% mid RCA stenosis with the distal right coronary artery filling from the left. She underwent CABG x5 with free AGUIAR to LAD, saphenous vein graft to the right posterior descending, ramus, obtuse marginal 1, and to the main circumflex. The vein graft to the circumflex and the right coronary artery were anastomosed to the aorta. The free AGUIAR graft was anastomosed to the circumflex graft all at the aortic root. The ramus graft was anastomosed to the domingo of the right coronary artery graft at the aortic root. The OM1 graft was anastomosed to the side of the circumflex graft. Her coronary arteries were small. Postoperatively, she was placed on Plavix. She did have supraventricular arrhythmias immediately postoperatively and was begun on amiodarone, and Isoptin was resumed. One month later, she was seen in followup and denied any exertional chest burning like she had prior to surgery. Amiodarone and Plavix were discontinued at that time. She continued to be seen in the office postoperatively. In 2003, she was diagnosed as having hepatitis C. Echo in April 2004 revealed normal left ventricular function with moderate mitral regurgitation. In July 2005, she began to have episodes of supraventricular tachycardia lasting up to 1 hour occurring 1-2 times per week. She underwent supraventricular tachycardia ablation. In November 2005, she was found to have hypercholesterolemia with LDL 148 and was placed on Lipitor. In January 2006, Lipitor was increased from 20 to 40 mg. In March 2006, Zetia was added. In August 2008, she began to complain of dyspnea on exertion. Echo revealed ejection fraction of 50% to 55% with slxlddlj-ii-vjrlly mitral regurgitation, huxbbwmi-kc-feuplu aortic regurgitation. She had been on Caduet that was discontinued due to leg swelling. She was started on Lipitor 40, Benicar 20, and furosemide 20. In October 2008, Benicar was further increased to 40 daily. In March 2009, she denied any shortness of breath, although in September 2009, she was asymptomatic, but an echo revealed severe mitral regurgitation, ejection fraction of 50% to 55%, moderate aortic insufficiency, qdyxqedl-kq-sobleo tricuspid regurgitation. In December 2009, she complained of dyspnea on exertion after walking 40-50 minutes and occasionally had leg edema. She had been noncompliant with her Lasix and was told that she would take that on a daily basis. She also complained of leg heaviness and underwent lower extremity venous duplex exam which revealed reflux in the distal right common femoral, right small saphenous vein, and on the left she had an accessory vein without reflux. However, there was reflux in the great saphenous vein below the knee. She was found to have fixed proximal to mid inferior wall defect as well as lateral wall defect without ischemia. She was placed on compression stockings for her lower extremity reflex. In April 2010, the leg discomfort had improved with compression stockings. She tended to have exertional dyspnea while doing housework or lifting. She was placed on a trial of Ranexa 500 b.i.d. and she did not feel any better with the Ranexa and that was discontinued. In June 2010, echo continued to show rqjkbcvl-qn-jesixf mitral regurgitation, moderate aortic regurgitation with ejection fraction of 50% to 55%. She also was found to have new onset atrial fibrillation. With her xzxxnixe-qi-yldspy mitral regurgitation and new onset atrial fibrillation, it was felt that she would need to undergo transesophageal echo to evaluate the severity of her mitral regurgitation. TAISHA revealed left atrial enlargement, structurally normal mitral valve, ddjwirpt-we-zjvago mitral regurgitation, mild tricuspid regurgitation, and trivial aortic regurgitation. There was no thrombus in left atrium or left atrial appendage. On chest x-ray, she was found to have right upper lobe nodule. Further cardiac evaluation was delayed until she underwent a bronchoscopy and needle biopsy which demonstrated adenocarcinoma. She then underwent right upper lobectomy in June 2010 with lymph node dissection. Postoperative course was uneventful and she remained in atrial fibrillation. She ultimately was restarted on Coumadin. In April 2011, she was started on amiodarone 200 mg b.i.d. for the atrial fibrillation. She returned for followup in September 2010 and she had returned to sinus rhythm. In July 2013, she complained of increased palpitations and metoprolol was increased from 50 to 100 daily. Palpitations seemed to reduce in frequency after that. In 2013, she was considering a right total hip replacement. She underwent preoperative evaluation with echo revealing ejection fraction of 45% to 50%, iixdungp-eg-gjuoac mitral regurgitation, mitral annular calcification, moderate aortic regurgitation, aortic valvular sclerosis, and mild tricuspid regurgitation. Cardiolite test was performed in November 2013 which revealed a fixed proximal to distal inferior wall defect and proximal to mid lateral wall ischemia. Findings were also present on prone scanning. There was moderate septal hypokinesis (CABG) and some reduced myocardial thickening of the proximal to mid inferior and mid lateral rhoades. In December 2013, she underwent catheterization which revealed wedge of 9. The cardiac index was 2.47 L/minute/sq m. There was inferior akinesis with ejection fraction of 40% to 45%, moderate mitral regurgitation. She also had moderate aortic insufficiency. The right posterior descending graft was occluded and the ramus graft that was piggybacked onto this was also occluded. The circumflex graft to the AV groove was patent. The free AGUIAR to the LAD anastomosed onto the domingo of the circumflex graft was patent. Also for the midbody of the circumflex graft at obtuse marginal, one graft was anastomosed and patent. Right coronary artery is totally occluded, but did show retrograde from the left. It was felt that her anatomy was stable. She underwent right total hip replacement without incidence. In July 2014, she was admitted with chest pain and palpitations. She also was bradycardic at that time. There was consideration given to pacemaker placement. Her metoprolol was decreased from 50 daily and she was maintained on amiodarone. She underwent 30-day monitoring and with complaints of dizziness, she was in normal sinus rhythm with a rate of 90 per minute. She had no atrial fibrillation. She was instructed to restart Nexium 40 daily for her chest pain that was felt to be noncardiac. In November 2014, her chest pain had improved with resuming the Nexium. In June 2015, she complained of increased dyspnea with lifting and moving furniture. Systolics have been 165-170 at home. Metoprolol was increased to 100 and then 150 daily. In August 2015, she again presented to the hospital for evaluation of chest discomfort. She had run out of her medications and did not take her Imdur. She was bradycardic and metoprolol was discontinued. She underwent adenosine Cardiolite testing and was found to have anterolateral ischemia which was mild and fixed defect in the inferolateral wall. It was felt that the scan was similar to the 2014 scan before last catheterization. In November 2015, she began to complain of increased shortness of breath. Echo revealed ejection fraction of 55% to 60% with mild mitral regurgitation, aortic valve sclerosis, calrgibl-gu-xeaioq aortic regurgitation, mild tricuspid regurgitation. Also, an aortic insufficiency murmur had been heard on the first time. Lasix was increased from 20 to 40 q.a.m. She was placed on clonidine 0.1 at bedtime. In January 2016, it seemed to be better. She is still very fatigued and tired. Her aortic insufficiency murmur was somewhat less intense. She underwent CT of the thorax and had an ascending aortic aneurysm measuring 4 cm. In March 2016, she was admitted with increased shortness of breath and troponin I was 0.53. She had acute abdominal pain and gastroenteritis. Echo revealed ejection fraction of 50% to 60% with evidence of oljy-hk-cyscabwb aortic insufficiency. It had been noted in May 2016 that her left ventricular end-diastolic size had increased from 5.6 cm in December to 6.3 in February. With increased left ventricular size, it was recommended she undergo cardiac catheterization. She was found to have ejection fraction of 40% to 45% with inferior akinesis. There was fydn-ft-pbjynkqh mitral regurgitation and severe aortic insufficiency. Bypass grafts revealed patent graft to the circumflex and anastomosed onto this and the proximal portion was a free AGUIAR to LAD. There also was a vein graft to the first obtuse marginal. The right posterior descending artery graft was occluded and the ramus graft that was piggybacked onto that also was occluded. She was referred to [facility] in [place] for a possible TAVR, however, was told by the physicians there that her aortic regurgitation was not bad enough to require valve replacement at that time. She was again admitted with increased shortness of breath in October 2016. She was diuresed and discharged. She eventually underwent aortic valve replacement and mitral valve repair. She was readmitted in May 2017 with increased shortness of breath. She apparently had been discharged after her cardiac surgery without diuretics. She was diuresed and discharged. She was just admitted earlier in August 2018 with acute bronchitis and diastolic heart failure. Yesterday, she began to feel extremely weak, fatigued, and somewhat lightheaded. She checked her pulse ox and her O2 saturation was 99%, however, heart rate was in the upper 30s. In retrospect, she thinks she may have possibly taken 2 carvedilol. She continued to monitor her heart rate which was low and also decided to come to the emergency room. Since admission, diltiazem has been discontinued. PAST MEDICAL HISTORY: Hypertension, hypercholesterolemia, hepatitis C. No history of diabetes. She has a history of adenocarcinoma of the lung, status post resection. She has a history of SVT with ablation. OPERATIONS: CABG, right upper lobectomy, breast biopsy, hysterectomy, polypectomy via colonoscopy, history of supraventricular tachycardia ablation, and right hip replacement. MEDICATIONS: 1. Aspirin 81 daily. 2. Warfarin 5 mg daily. 3. Carvedilol 3.125 b.i.d. 4. Zetia 10 daily. 5. Atorvastatin 80 daily. 6. Diltiazem 180 mg daily. 7. Folic acid 0.8 daily. 8. Ferrous sulfate 325 daily. 9. Furosemide 40 daily. 10. Hydrea 500 mg b.i.d. 11. Losartan 25 daily. 12. Pantoprazole 40 daily. 13. KCl 20 mEq daily. 14. Ranexa 500 mg b.i.d. ALLERGIES: SHE DEVELOPS COUGH WITH POWER INHIBITORS. CODEINE AND TRAMADOL. SOCIAL HISTORY: She does not smoke or drink. Her from end-stage congestive heart failure and had coronary artery disease and leg amputations. FAMILY HISTORY: Mother had angina at late age and at age 89. Sister had mitral valve prolapse. REVIEW OF SYSTEMS: A 10-point review of systems is otherwise unremarkable. PHYSICAL EXAMINATION: VITAL SIGNS: Blood pressure 149/73 and pulse of 68. HEENT: PERRL. NECK: Supple. CHEST: Clear. CARDIAC: S1 and S2 normal without any S3 or S4. There is a 2/6 systolic ejection murmur in the aortic area. ABDOMEN: Normal bowel sounds without tenderness or organomegaly. EXTREMITIES: No clubbing, cyanosis, or edema. NEUROLOGIC: Grossly intact. SKIN: Warm and dry. LABORATORY DATA: EKG reveals atrial fibrillation with poor R-wave progression. Hemoglobin 12.3, hematocrit 36.8, white count 7900, platelets 569,000. INR 1.7. Sodium 135, potassium 3.6, chloride 100, carbon dioxide 27, BUN 28, and creatinine 1.02. Cardiac enzymes are unremarkable. BNP 326.6. IMPRESSION: 1. Bradycardia, which may possibly have been due to taking 2 carvedilol accidentally. I agree with discontinuation of the diltiazem. 2. Status post aortic valve replacement and mitral valve repair. 3. Status post CABG x5 with 3/5 grafts patent in December 2013. 4. History of supraventricular tachycardia ablation. 5. Chronic atrial fibrillation. 6. Hypertension. 7. Hypercholesterolemia. 8. Hepatitis C. 9. Cough with POWER inhibitor. PLAN: Cardizem has been discontinued and I agree with this. Her heart rate is in 60s and 70s. This also may have been exacerbated by accidently taking 2 carvedilol. At any rate, I do not think that she requires pacemaker placement and I feel she may be discharged. Job ID: [id number]
--- NOTE | 2018-09-15 11:05 | PDOC.EVN ---
Event Note - Event Note Event Note: DC SUMMARY #[id number]
--- NOTE | 2018-09-15 14:22 | EKG ---
Test Reason : Blood Pressure : / mmHG Vent. Rate : 047 BPM Atrial Rate : 250 BPM P-R Int : 000 ms QRS Dur : 094 ms QT Int : 528 ms P-R-T Axes : 000 006 042 degrees QTc Int : 467 ms Atrial flutter with variable A-V block Possible Anterior infarct , age undetermined Abnormal ECG Confirmed by ANTONIO GARNER DO ([id number]), newspaper copy editor REHANA SARAVIA ([id number]) on 09/15/2018 2:22:11 PM Referred By: Confirmed By:ANTONIO GARNER DO
[2018-09-15] MEDS ORDERED: Warfarin Sodium 5 MG TAB PO SCH ×2 (17:00)
--- NOTE | 2018-09-16 02:38 | DIS ---
DATE OF ADMISSION: 09/13/2018 DATE OF DISCHARGE: 09/14/2018 ADMITTING DIAGNOSES: Sinus bradycardia, symptomatic dizziness. DISCHARGE DIAGNOSES: Sinus bradycardia, stable. Dizziness resolved. HOSPITAL COURSE: This is an 87-year-old female admitted to the hospital because of dizziness and potential presyncopal episodes admitted to internal medicine team, seen by Cardiology and tele observation floor. The patient was advised to talk to the pizza maker outpatient at point in time of discharge. The patient was stable. Denied any nausea, vomiting, diarrhea, constipation, chest pain, fevers, or shortness of breath. Plan was made for Cardiology to follow up with the patient outpatient and potentially consideration of Holter monitor, stress test, or a workup for AICD pacemaker placement. At point in time of discharge, the patient was cleared from Internal Medicine and Cardiology perspectives. FOLLOWUP: Follow up with PCP and Cardio within 1 to 2 weeks. DISPOSITION: Home. MEDICATIONS: See MAR. ACTIVITY: As tolerated with assistance as needed. CONDITION: Stable. PROGNOSIS: Good. Case and plan discussed with the patient at length. She understood and agreed with this plan. Job ID: [id number]
== END 2018-09-14 15:04 | disposition home or self-care (01) ==
LOC: ERS 17:07 → ERHOLD 20:15 → 2SW 23:51
PROVIDERS: ADMIT Internal Medicine; ATTEND Internal Medicine
DX: R00.1 Bradycardia, unspecified (principal); R42 Dizziness and giddiness; R53.1 Weakness; I25.810 Atherosclerosis of coronary artery bypass graft(s) without angina pectoris; I48.2 Chronic atrial fibrillation; I13.0 Hypertensive heart and chronic kidney disease with heart failure and stage 1 through stage 4 chronic kidney disease, or unspecified chronic kidney disease; N18.9 Chronic kidney disease, unspecified; I50.42 Chronic combined systolic (congestive) and diastolic (congestive) heart failure; N17.9 Acute kidney failure, unspecified; Z85.118 Personal history of other malignant neoplasm of bronchus and lung; Z79.01 Long term (current) use of anticoagulants; Z79.82 Long term (current) use of aspirin; Z79.899 Other long term (current) drug therapy; Z88.5 Allergy status to narcotic agent; Z95.2 Presence of prosthetic heart valve; Z95.1 Presence of aortocoronary bypass graft; Z66 Do not resuscitate
CPT/HCPCS: 71045; 80048; 80053; 83735; 83880; 84484 ×3; 85025; 85610; 85730; 93005; 96372; 99285; G0378 ×2; 36415; J1650

== ENCOUNTER 2019-02-13 10:53 | Outpatient (CLI) | payer MEDICARE, BC ==
--- NOTE | 2019-02-13 13:10 | RAD ---
2 VIEW CHEST: Date: 02/13/19 INDICATION: Dyspnea. COMPARISON: 09/13/18. FINDINGS: Cardiomegaly with postop sternotomy change and prosthetic aortic valve again noted. The lung mcdonald a ppear clear. No vascular congestion or edema. Hyperexpansion again noted. Osseous structures unremark able. IMPRESSION: No acute process or interval change noted. POS: OFF
== END 2019-02-13 10:54 | disposition home or self-care (01) ==
LOC: RAD 10:53
PROVIDERS: ATTEND Internal Medicine Pulmonary Disease
DX: R06.00 Dyspnea, unspecified (principal)
CPT/HCPCS: 71046

== ENCOUNTER 2019-08-03 21:59 | Observation (INO) | payer MEDICARE, BC ==
[~2019-08-03 21:59] MED LIST: Iopamidol-370 76% 500 ML 1 ML ONE
[2019-08-03] MEDS ORDERED: Magnesium 2 GM/50 ML BAG (IN WATER) ONE (22:31)
--- NOTE | 2019-08-03 22:34 | RAD ---
EXAM: Portable chest PROVIDED CLINICAL HISTORY: Palpitations COMPARISON: 02/13/2019 FINDINGS: Cardiac and mediastinal silhouette is unchanged in appearance. Median sternotomy changes and prosthet ic cardiac valves again noted. Atherosclerosis again seen. Blunting of each costophrenic angle. Stable chronic appearing interstitial opacities. No evidence for pneumothorax. IMPRESSION: Blunting of the costophrenic angles could reflect pleural fluid.
[2019-08-03 22:36] LABS: #Basophils 0.1 thou/uL (0.0-0.2); #Eosinphils 0.2 thou/uL (0.0-0.7); #Lymphocytes 1.3 thou/uL (1.20-3.40); #Monocytes 0.7 thou/uL (0.11-0.59); %Basophils 1.5 % (0.0-1.0); %Eosinophils 3.2 % (0.0-10.0); %Lymphocytes 17.8 % (21.0-51.0); %Monocytes 9.4 % (0.0-10.0); %Neutrophils 68.1 % (42.0-75.0); Hemoglobin 12.8 g/dL (12.0-16.0); Mean Corpuscular HGB CONC 33.3 g/dL (32.0-36.0); Mean Corpuscular Hemoglobin 33.5 pg (27.0-31.0); Mean Platelet Volume 6.5 fL (7.4-10.4); Platelet Count 490 thou/uL (130-400); RBC Distribution Width 13.6 % (11.5-14.5); Red Blood Cell (RBC) Count 3.83 mill/uL (4.20-5.40); White Blood Cell (WBC) Count 7.3 thou/uL (4.8-10.8)
[2019-08-03 23:03] LABS: INR-International Normal Ratio 2.5; Prothrombin Time 26.8 SEC (12.0-14.7)
[2019-08-03 23:05] LABS: ALT (SGPT) 20 U/L (8-55); AST (SGOT) 29 U/L (5-34); Albumin 3.9 g/dL (3.4-4.8); Alkaline Phosphatase 117 U/L (40-110); Anion Gap 12 mmol/L (10-20); BUN (Urea Nitrogen) 26 mg/dL (9.8-20.1); Bilirubin, Total 1.3 mg/dL (0.2-1.2); Calc. Creatinine Clearance 0 mL/min (70-130); Calcium 9.3 mg/dL (7.8-10.44); Carbon Dioxide 27 mmol/L (23-31); Chloride 102 mmol/L (98-107); Estimated GFR-MDRD 54; Globulin 2.9 g/dL (2.4-3.5); Glucose 103 mg/dL (83-110); Magnesium 2.1 mg/dL (1.6-2.6); Potassium 4.4 mmol/L (3.5-5.1); Protein, Total 6.8 g/dL (6.0-8.3); Sodium 137 mmol/L (136-145)
[2019-08-03 23:33] LABS: Bilirubin Negative (Negative); Blood, Urine Negative (Negative); Clarity Clear (Clear); Glucose, Urine (Dipstick) Normal (Negative); Leukocyte 75 Leu/uL (Negative); Nitrite Negative (Negative); Protein, Urine (Dipstick) 20 mg/dL (Neg-Trace); RBC/HPF 0-3 HPF (0-3); Squamous Epithelial 0-3 HPF (0-3)
[2019-08-03 23:35] LABS: Bacteria/HPF Rare-Few HPF (None Seen)
[2019-08-03] MEDS ORDERED: Acetaminophen 325 MG TAB PO PRN (23:42)
--- NOTE | 2019-08-03 23:58 | CT ---
EXAM: CT pulmonary angiogram with IV contrast and 3-D MIP reconstructions PROVIDED CLINICAL HISTORY: Palpitations COMPARISON: 10/18/2016 FINDINGS: There is no evidence for central or segmental pulmonary embolus. Extensive vascular calcification. Pr osthetic aortic and mitral valves. The lungs are free of significant opacity. Stable noncalcified nodular densities in the right upper l obe. Small bilateral pleural fluid. No evidence for pneumothorax. No evidence for thoracic lymph node enlargement. The airway appears patent and of normal caliber. The visualized portions of the upper abdomen demonstrate no acute findings. The osseous structures demonstrate no concerning lytic or blastic lesions. IMPRESSION: No evidence for central or segmental pulmonary embolus.
[2019-08-04 02:12] LABS: Troponin I 0.012 ng/mL (< 0.028)
--- NOTE | 2019-08-04 05:19 | HP ---
CHIEF COMPLAINT: Palpitations and chest pressure. HISTORY OF PRESENT ILLNESS: Ms. Calles is an 88-year-old female with past medical history of atrial fibrillation, on warfarin; coronary artery bypass graft surgery, 5 vessels; aortic valve replacement and mitral valve repair; lung cancer; lobectomy; and among others, presented to the emergency room with palpitations that started earlier today. She also is feeling chest pressure whenever she gets palpitations. The symptoms come on and off. No alleviating or relieving factors. Workup in the emergency room, the patient was found to be in atrial fibrillation with moderate ventricular response. Initial lab work: Troponin less than 0.01, INR is 2.5. BNP 344. D-dimer is elevated at 0.47. CT angiogram of the chest is being ordered, results are pending at the time of this dictation. The patient is being admitted to the hospital for further management. PAST MEDICAL HISTORY: 1. Coronary artery disease. 2. Valvular heart disease. 3. Hypertension. 4. Hyperlipidemia. 5. Lung cancer. PAST SURGICAL HISTORY: 1. Coronary artery bypass graft surgery, 5 vessels. 2. Hysterectomy. 3. Right hip replacement. 4. Left upper lobectomy. 5. Aortic valve replacement and mitral valve repair. SOCIAL HISTORY: Denies smoking, alcohol drinking, or drug abuse. FAMILY HISTORY: Reviewed and noncontributory. HOME MEDICATIONS: Please see home medication reconciliation form for updated medications. ALLERGIES: ALLERGIC TO TRAMADOL AND CODEINE. REVIEW OF SYSTEMS: Review of 14 systems negative except what is mentioned in History of Present Illness. PHYSICAL EXAMINATION: GENERAL: The patient is awake, alert, and not in acute distress. VITAL SIGNS: Blood pressure 149/88, pulse is 90, respiratory rate is 20, temperature is 98.2, and pulse oximetry is 97% on room air. HEAD AND NECK: Normocephalic, atraumatic. Neck is supple. No JVD. CHEST: Fair bilateral air entry. HEART: Irregularly irregular. ABDOMEN: Soft, nontender. Bowel sounds present. NEUROLOGIC: Awake, alert, and oriented x3. PSYCH: Normal mood. EXTREMITIES: No clubbing, no cyanosis. GENITOURINARY: No suprapubic tenderness. No flank tenderness. MUSCULOSKELETAL: No joint deformity. No joint tenderness. LABORATORY DATA: As mentioned above in the History of Present Illness. DIAGNOSTIC DATA: Chest x-ray, blunting of the costophrenic angle. CTA of the chest ordered, results are pending at the time of this dictation. ASSESSMENT: 1. Palpitations. 2. Acute chest pain. 3. Atrial fibrillation with controlled ventricular response. 4. History of aortic valve replacement. 5. History of mitral valve repair. 6. Hypertension. 7. Hyperlipidemia. 8. History of lung cancer. PLAN: 1. Admit. 2. Telemetry monitoring. 3. Serial troponins. 4. CT of the chest ordered, to follow the results. 5. Consult the patient's residential assistant in a.m. for evaluation and further recommendations. 6. Reconcile home medications. 7. DVT prophylaxis. Continue home anticoagulants. 8. Expected length of stay at least 1 midnight if the patient is stable and further workup negative. Job ID: [id number]
[2019-08-04] MEDS: Famotidine 20 MG TAB PO SCH (07:48)
[2019-08-04] MEDS ORDERED: Aspirin 325 mg Enteric Coated Tablet PO SCH (09:00)
[2019-08-04] MEDS ORDERED: Warfarin Sodium 5 MG TAB PO SCH (16:00)
[2019-08-04] MEDS ORDERED: Warfarin Sodium 2.5 MG TAB PO SCH (16:00)
[2019-08-04] MEDS ORDERED: Carvedilol 3.125 MG TAB PO SCH (17:00)
[2019-08-04] MEDS: Warfarin Sodium 5 MG TAB PO SCH (17:01)
[2019-08-04] MEDS: Carvedilol 3.125 MG TAB PO SCH (17:01)
[2019-08-04] MEDS: Mometasone/Formoterol 120 PUFF INHALER INH SCH (19:20)
--- NOTE | 2019-08-04 19:30 | CON ---
DATE OF CONSULTATION: INDICATION FOR CONSULTATION: This is an 88-year-old female with chronic atrial fibrillation, who noted she had increasing heart rate and shortness of breath, who was seen in the emergency room, was admitted for rate control of the atrial fibrillation. She has multiple other medical problems. HISTORY OF PRESENT ILLNESS: This is a very pleasant 88-year-old female, who has been followed by Dr. Carrera for many years. She has undergone bypass surgery many years ago with five-vessel bypass, this was in 2001. She has had aortic valve replacement. She has had a mitral valve repair, I believe this was performed in 2017. She has also had ablations in the past, I believe for SVT. She recently was seen in the office a couple weeks ago and had been complaining of dizziness since her medications were adjusted. She is uncertain exactly whether or not she was doing this correctly or not. She was told to stop taking her diltiazem. However, she is not certain whether or not she stopped taking the diltiazem or the Coreg, but this time her heart rate increased again. Previously, she had been on the diltiazem in the past and it was stopped back in September with a heart rate in the 30s, but at that time, she thinks maybe she also was confused about her medications and may have taken two Coreg instead of just taking the diltiazem. In the office last time when she was seen, her heart rate was in the 50s and was suggested that she stop taking the diltiazem to see whether or not she became severely tachycardic again and she was to report back to the hospital or to the office in about three weeks and she had an upcoming appointment. She denied any chest pain. She did have some mild shortness of breath when she has an increase in shortness of breath, but no chest pain. She does have some tightness occasionally, but otherwise has been doing quite well. She does have a history of atrial fibrillation for about 10 years. She also has underlying chronic obstructive pulmonary disease and sees Dr. Waterman on a routine basis. At this time, her heart rate is in the 80s to 90s. She is sitting in the bed and is very comfortable and the heart rate seems to be under better control. There has been some discussion in the past about pacemaker insertion. This may be due to the theory of sick sinus syndrome and tachy-arvin, if she becomes too tachycardic needing more medications and if becomes bradycardic, then she will need a pacemaker inserted in order to alleviate the bradycardia and then, will be able to give medications to control the tachycardia. PAST MEDICAL HISTORY: Significant for the coronary artery disease as noted above, aortic valve replacement, mitral valve repair, multiple ablations, and atrial fibrillation. She has had breast biopsy. She has had a hysterectomy. She has had a polypectomy. She has had resection of a left shoulder melanoma. She has had a right upper lobectomy for adenocarcinoma of the lung. She has had a total right hip replacement. Her bypass surgery included a five-vessel bypass. On cardiac catheterization, the ramus graft was occluded in 2013 and also the PDA was occluded. By stress testing, she had a fixed lateral inferior defects on the Cardiolite study in July of 2009. She also had a history of [id number] mitral valve regurgitation and thus underwent a mitral valve repair. She also has a history of hepatitis C as well as hypertension and hyperlipidemia. MEDICATIONS: Include: 1. Probiotics. 2. Folic acid. 3. Iron 325 mg a day. 4. Vitamin D3. 5. Coumadin 5 mg one tablet as directed to keep an INR between 2.5 and 3.5. 6. Hydroxyurea 500 mg once a day. 7. Coreg 3.125 mg twice a day. 8. Potassium 99 mg once a day. 9. Ranexa 500 mg b.i.d. 10. Diltiazem, which was supposedly need to be on hold. She is uncertain whether or not she has actually stopped taking the medicine, but this maybe the reason she has started to begin to have more tachycardia again. 11. Meclizine hydrochloride 25 mg once a day. 12. Furosemide 40 mg once a day. 13. Losartan 25 mg once a day. 14. Pantoprazole. 15. Zetia 10 mg a day. 16. Atorvastatin 80 mg once a day. ALLERGIES: SHE IS ALLERGIC TO TRAMADOL AND CODEINE. SHE HAS SOME ALLERGIES TO POWER INHIBITORS. FAMILY HISTORY: Her mother had coronary artery disease. Her other family members are uncertain as to what they had for the cause of . SOCIAL HISTORY: There is no alcohol or tobacco abuse. REVIEW OF SYSTEMS: The 12-point review of systems is relatively unremarkable except what is noted in the history of present illness. She did complains of shortness of breath associated with the rapid heart rate and the dizzy spells. However, she did admit the dizzy spells had improved after she has stopped taking the medication, which was either carvedilol or the diltiazem, but she is uncertain as to which one she actually stopped and she stopped less than a week ago. PHYSICAL EXAMINATION: GENERAL: Reveals an elderly female, in no acute distress at this time. She is alert. She is oriented. VITAL SIGNS: Show a blood pressure 132/75. She is afebrile. Heart rate is anywhere between 90 to low 100s and respiratory rate is about 16. HEENT: Shows head to be normocephalic and atraumatic. Carotid pulses are present without any significant bruits at this time. CHEST: She has bibasilar rales, which were fine. She also has a well-healed surgical incision in the midline after her median sternotomy for bypass surgery. CARDIOVASCULAR: She has a systolic murmur of the left sternal border also at the apex. She has a very high-pitched murmur also noted at the left sternal border, which is different than the one, the other systolic murmur. ABDOMEN: Soft and nontender. Positive bowel sounds are present. EXTREMITIES: Showed no clubbing, cyanosis, or edema. NEUROLOGIC: There were no gross focal motor deficits. LABORATORY DATA: The hemoglobin is 12.8, platelet count 490,000, and WBC of 7.3. Her sodium was 137, potassium was 4.4, BUN was 26 with a creatinine of 0.98. Her BNP is 344, only slightly elevated. Her cardiac enzymes are negative evidence of myocardial infarction, they remained normal. Her TSH was normal at 2.43. IMPRESSION AND PLAN: 1. Elderly female with a history of chronic atrial fibrillation. She stopped taking one of her medicines, but uncertain as to which medication it was. Her dizziness did improve, but the tachycardia associated with atrial fibrillation has worsened. We will start her back on her medications and see which way we need to go whether or not she may eventually need to undergo pacemaker insertion for control of the bradycardia. 2. History of supraventricular tachycardia. I do not see any supraventricular tachycardia at this time, but I do see evidence of atrial fibrillation. 3. Hypertension. This is under control at this time. 4. Hypercholesterolemia. We will continue her medications. 5. History of coronary artery disease and status post bypass surgery. This also appears to be stable at this time. She denies any chest pain and is doing otherwise relatively well. 6. Mitral valve regurgitation, for which she underwent mitral valve repair. 7. She did have also a thoracic aortic aneurysm. I do not believe that has been repaired, but she did have an aortic valve replacement with bioprosthetic valve previously and that also appears to be stable. We will schedule her for an echocardiogram for evaluation of left atrial size and also to evaluate her left ventricular systolic function. Further care of the patient will be by Dr. Carrera, when he visits with the patient tomorrow, but I will start her back on low-dose diltiazem as well as her Coreg and she is aware that she may eventually need to undergo pacemaker insertion. Job ID: [id number]
--- NOTE | 2019-08-04 20:31 | PDOC.HOSPP ---
- Subjective Encounter Date: 08/04/19 Encounter Time: 17:30 Subjective: Patient seen and examined for Palpitations. No new CP. No new complaints. No overnight events - Objective Vital Signs & Weight: Vital Signs (12 hours) Temp Pulse Resp BP Pulse Ox 08/04/19 19:50 97.8 F 86 15 128/64 94 L 08/04/19 19:20 71 16 91 L 08/04/19 16:45 94 L 08/04/19 15:35 98.1 F 91 20 136/73 94 L 08/04/19 11:47 99.1 F 96 16 132/75 95 Weight Weight 122 lb I&O: 08/03/19 08/04/19 08/05/19 06:59 06:59 06:59 Intake Total 700 Output Total 1100 Balance -400 Result Diagrams: 08/03/19 22:27 08/03/19 22:27 Radiology Reviewed by me: Yes (CXR - no infiltrate) EKG Reviewed by me: Yes (Tele Afib) Hospitalist ROS - Review of Systems Respiratory: denies: cough, dry, shortness of breath, hemoptysis, SOB with excertion, pleuritic pain, sputum, wheezing, other Gastrointestinal: denies: nausea, vomiting, abdominal pain, diarrhea, constipation, melena, hematochezia, other - Medication Medications: Active Medications Generic Name Dose Route Start Last Admin Trade Name Freq PRN Reason Stop Dose Admin Atorvastatin Calcium 80 mg 08/04/19 21:00 08/04/19 20:18 Lipitor PO 80 mg HS TRISTEN Administration Carvedilol 3.125 mg 08/04/19 17:00 08/04/19 17:01 Coreg PO 3.125 mg BID-WM TRISTEN Administration Diltiazem HCl 15 mg 08/04/19 21:00 08/04/19 20:17 Cardizem PO 15 mg BID TRISTEN Administration Famotidine 20 mg 08/04/19 09:00 08/04/19 07:48 Pepcid PO 20 mg DAILY TRISTEN Administration Mometasone Furoate/Formoterol Fumar 2 puff 08/04/19 18:30 08/04/19 19:20 Dulera 200 Mcg/5 Mcg Inhaler INH 2 puff BID-RT TRISTEN Administration Ranolazine 500 mg 08/04/19 21:00 08/04/19 20:17 Ranexa PO 500 mg BID TRISTEN Administration Warfarin Sodium 5 mg 08/04/19 17:00 08/04/19 17:01 Coumadin PO 5 mg 1700 TRISTEN Administration - Exam General Appearance: NAD Neck: supple, no JVD Heart: no gallops, irregular Gastrointestinal: soft, non-tender, non-distended Hosp A/P - Plan Palpitations Atypical CP Chronic diastolic HF exacerbation Chronic A fib - on Warfarin CAD Other issues per H&P PLAN: Resume Coreg/Cardizem Resume Lasix/Losartan Monitor INR daily Cont other meds as above Cont Tele monitoring DPAO - self/family
[2019-08-04] MEDS ORDERED: Atorvastatin Calcium 40 MG TAB PO SCH (21:00)
[2019-08-05 05:00] LABS: #Basophils 0.1 thou/uL (0.0-0.2); #Eosinphils 0.1 thou/uL (0.0-0.7); #Lymphocytes 0.9 thou/uL (1.20-3.40); #Neutrophils 6.7 thou/uL (1.40-6.50); %Eosinophils 1.1 % (0.0-10.0); %Lymphocytes 10.6 % (21.0-51.0); %Neutrophils 76.3 % (42.0-75.0); Hemoglobin 11.6 g/dL (12.0-16.0); Mean Corpuscular HGB CONC 34.4 g/dL (32.0-36.0); Mean Corpuscular Hemoglobin 34.3 pg (27.0-31.0); Mean Corpuscular Volume 99.7 fL (78.0-98.0); Mean Platelet Volume 6.6 fL (7.4-10.4); Platelet Count 455 thou/uL (130-400); RBC Distribution Width 13.6 % (11.5-14.5); White Blood Cell (WBC) Count 8.8 thou/uL (4.8-10.8)
[2019-08-05 05:09] LABS: INR-International Normal Ratio 2.5
[2019-08-05 05:19] LABS: ALT (SGPT) 15 U/L (8-55); AST (SGOT) 22 U/L (5-34); Albumin 3.2 g/dL (3.4-4.8); Alkaline Phosphatase 83 U/L (40-110); Anion Gap 9 mmol/L (10-20); BUN (Urea Nitrogen) 20 mg/dL (9.8-20.1); Bilirubin, Total 2.6 mg/dL (0.2-1.2); Calc. Creatinine Clearance 47 mL/min (70-130); Calcium 8.4 mg/dL (7.8-10.44); Carbon Dioxide 26 mmol/L (23-31); Chloride 104 mmol/L (98-107); Estimated GFR-MDRD 74; Globulin 2.5 g/dL (2.4-3.5); Glucose 101 mg/dL (83-110); Potassium 4.3 mmol/L (3.5-5.1); Protein, Total 5.7 g/dL (6.0-8.3); Sodium 135 mmol/L (136-145)
[2019-08-05] MEDS: Mometasone/Formoterol 120 PUFF INHALER INH SCH ×2 (07:18→19:52)
[2019-08-05] MEDS: Furosemide 40 MG TAB PO SCH (08:21)
[2019-08-05] MEDS: Aspirin 81 mg Enteric Coated Tablet PO SCH (08:22)
[2019-08-05] MEDS: Ezetimibe 10 MG TAB PO SCH (08:22)
[2019-08-05] MEDS: Folic Acid 1 MG TAB PO SCH (08:22)
[2019-08-05] MEDS: Carvedilol 3.125 MG TAB PO SCH ×2 (08:22→17:30)
[2019-08-05] MEDS: Saccharomyces boulardii 250 MG CAP PO SCH (08:23)
[2019-08-05] MEDS: Potassium Chloride 20 MEQ TAB PO SCH (08:23)
[2019-08-05] MEDS: Losartan 25 MG TAB PO SCH (08:23)
[2019-08-05] MEDS: Famotidine 20 MG TAB PO SCH (08:23)
[2019-08-05] MEDS ORDERED: (Vitamin E [Vitamin E] 100 UNIT) PO SCH (09:00)
[2019-08-05] MEDS ORDERED: Losartan 25 MG TAB PO SCH (09:00)
[2019-08-05] MEDS ORDERED: Non-Formulary Item 1 EACH (Folic Acid [Folic Acid] 0.8 MG) PO SCH (09:00)
[2019-08-05] MEDS ORDERED: Non-Formulary Item 1 EACH (Fluticasone/Vilanterol [Breo Ellipta] 1 INH) INH SCH (09:00)
[2019-08-05] MEDS ORDERED: Non-Formulary Item 1 EACH (Ferrous Sulfate [Ferrous Sulfate] 325 MG) PO SCH (09:00)
[2019-08-05] MEDS: Warfarin Sodium 5 MG TAB PO SCH (17:31)
--- NOTE | 2019-08-05 22:38 | PDOC.HOSPP ---
- Subjective Encounter Date: 08/05/19 Encounter Time: 10:30 Subjective: Patient seen and examined for Palpitations. No CP. No new complaints. No overnight events - Objective Vital Signs & Weight: Vital Signs (12 hours) Temp Pulse Resp BP Pulse Ox 08/05/19 20:00 97.8 F 75 14 141/72 H 95 08/05/19 19:52 66 16 96 08/05/19 15:56 98.9 F 70 16 105/53 L 95 08/05/19 12:11 97.6 F 81 16 119/67 92 L Weight Weight 122 lb I&O: 08/04/19 08/05/19 08/06/19 06:59 06:59 06:59 Intake Total 700 720 Output Total 1100 850 Balance -400 -130 Result Diagrams: 08/05/19 04:41 08/05/19 04:41 EKG Reviewed by me: Yes (Tele Afib) Hospitalist ROS - Review of Systems Respiratory: denies: cough, dry, shortness of breath, hemoptysis, SOB with excertion, pleuritic pain, sputum, wheezing, other Cardiovascular: denies: chest pain, palpitations, orthopnea, paroxysmal noc. dyspnea, edema, light headedness, other - Medication Medications: Active Medications Generic Name Dose Route Start Last Admin Trade Name Freq PRN Reason Stop Dose Admin Aspirin 81 mg 08/05/19 09:00 08/05/19 08:22 Ecotrin PO 81 mg DAILY TRISTEN Administration Atorvastatin Calcium 80 mg 08/04/19 21:00 08/04/19 20:18 Lipitor PO 80 mg HS TRISTEN Administration Carvedilol 3.125 mg 08/04/19 17:00 08/05/19 17:30 Coreg PO 3.125 mg BID-WM TRISTEN Administration Diltiazem HCl 15 mg 08/04/19 21:00 08/05/19 20:52 Cardizem PO 15 mg BID TRISTEN Administration Ezetimibe 10 mg 08/05/19 09:00 08/05/19 08:22 Zetia PO 10 mg DAILY TRISTEN Administration Famotidine 20 mg 08/04/19 09:00 08/05/19 08:23 Pepcid PO 20 mg DAILY TRISTEN Administration Folic Acid 1 mg 08/05/19 09:00 08/05/19 08:22 Folvite PO 1 mg DAILY TRISTEN Administration Furosemide 40 mg 08/05/19 07:30 08/05/19 08:21 Lasix PO 40 mg DAILY-AC TRISTEN Administration Losartan Potassium 25 mg 08/05/19 09:00 08/05/19 08:23 Cozaar PO 25 mg DAILY TRISTEN Administration Mometasone Furoate/Formoterol Fumar 2 puff 08/04/19 18:30 08/05/19 19:52 Dulera 200 Mcg/5 Mcg Inhaler INH 2 puff BID-RT TRISTEN Administration Pantoprazole Sodium 40 mg 08/05/19 09:00 08/05/19 08:23 Protonix PO 40 mg DAILY TRISTEN Administration Potassium Chloride 20 meq 08/05/19 09:00 08/05/19 08:23 K-Dur PO 20 meq DAILY TRISTEN Administration Ranolazine 500 mg 08/04/19 21:00 08/05/19 20:52 Ranexa PO 500 mg BID TRISTEN Administration Saccharomyces Boulardii 250 mg 08/05/19 09:00 08/05/19 08:23 Florastor PO 250 mg DAILY TRISTEN Administration Warfarin Sodium 5 mg 08/04/19 17:00 08/05/19 17:31 Coumadin PO 5 mg 1700 TRISTEN Administration - Exam General Appearance: NAD Neck: supple, no JVD Heart: no gallops, no rubs, irregular Respiratory: no rales, no ronchi Gastrointestinal: non-tender, non-distended, normal bowel sounds Extremities: no cyanosis Hosp A/P - Plan 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
[2019-08-06 05:14] LABS: INR-International Normal Ratio 2.5; Prothrombin Time 27.2 SEC (12.0-14.7)
[2019-08-06 05:50] LABS: ALT (SGPT) 15 U/L (8-55); AST (SGOT) 25 U/L (5-34); Albumin 3.2 g/dL (3.4-4.8); Alkaline Phosphatase 100 U/L (40-110); Anion Gap 10 mmol/L (10-20); BUN (Urea Nitrogen) 24 mg/dL (9.8-20.1); Bilirubin, Total 1.6 mg/dL (0.2-1.2); Calc. Creatinine Clearance 41 mL/min (70-130); Calcium 8.5 mg/dL (7.8-10.44); Carbon Dioxide 27 mmol/L (23-31); Chloride 104 mmol/L (98-107); Estimated GFR-MDRD 68; Globulin 2.8 g/dL (2.4-3.5); Glucose 103 mg/dL (83-110); Sodium 137 mmol/L (136-145)
[2019-08-06] MEDS: Mometasone/Formoterol 120 PUFF INHALER INH SCH (07:27)
[2019-08-06 08:07] VITALS: BP 123/56; TEMP 98.3
[2019-08-06] MEDS: Folic Acid 1 MG TAB PO SCH (08:55)
[2019-08-06] MEDS: Furosemide 40 MG TAB PO SCH (08:56)
[2019-08-06] MEDS: Ezetimibe 10 MG TAB PO SCH (08:56)
[2019-08-06] MEDS: Potassium Chloride 20 MEQ TAB PO SCH (08:56)
[2019-08-06] MEDS: Famotidine 20 MG TAB PO SCH (08:56)
[2019-08-06] MEDS: Carvedilol 3.125 MG TAB PO SCH (08:56)
[2019-08-06] MEDS: Aspirin 81 mg Enteric Coated Tablet PO SCH (08:56)
[2019-08-06] MEDS: Saccharomyces boulardii 250 MG CAP PO SCH (08:57)
[2019-08-06] MEDS: Losartan 25 MG TAB PO SCH (08:58)
--- NOTE | 2019-08-06 23:08 | DIS ---
DATE OF ADMISSION: 08/03/2019 DATE OF DISCHARGE: 08/06/2019 DISCHARGE DISPOSITION: Home. FOLLOWUP: 1. Follow up with primary care physician, Maryana Gamboa in 1 week. 2. Follow up with Cardiology, Dr. Carrera, Pulmonary, Dr. Waterman and [facility] as scheduled. The patient was seen and examined on the day of discharge. Denies any new complaints. No chest pain reported. INPATIENT PITCHING COACH: Cardiology, Dr. Carrera. DISCHARGE MEDICATIONS: Cardizem was reduced to 15 mg b.i.d. All other home medications were left unchanged. BRIEF HOSPITAL COURSE: The patient is an 88-year-old female with coronary artery disease; atrial fibrillation, on anticoagulation; hypertension; and hyperlipidemia, presented to the hospital with chest discomfort along with palpitations. Please refer to the history and physical for further details. 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 Cardizem dose was reduced to 15 mg b.i.d. She was evaluated by Cardiology. An event monitor has been arranged. She has been cleared by Cardiology for discharge. FINAL DIAGNOSES: 1. 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 2. Hypertension. 3. Hyperlipidemia. 4. Coronary artery disease, status post coronary artery bypass grafting. 5. Paroxysmal atrial fibrillation, on anticoagulation. 6. History of lung cancer. 7. History of aortic valve replacement. 8. History of mitral valve repair. 9. History of thoracic aortic aneurysm. 10. Hyponatremia. 11. Abnormal LFTs. 12. Moderate to severe tricuspid regurgitation. 13. Moderate pulmonary regurgitation. 14. Repeat LFTs after 1 to 2 weeks is recommended, primary care physician advised to follow. Job ID: [id number]
--- NOTE | 2019-08-10 15:19 | EKG ---
Test Reason : Blood Pressure : / mmHG Vent. Rate : 098 BPM Atrial Rate : 267 BPM P-R Int : 000 ms QRS Dur : 100 ms QT Int : 376 ms P-R-T Axes : 000 042 059 degrees QTc Int : 480 ms Atrial fibrillation Prolonged QT Abnormal ECG Confirmed by HARLEY LEE ([id number]), electronic news gathering editor REHANA SARAVIA ([id number]) on 08/10/2019 3:19:11 PM Referred By: Confirmed By:HARLEY LEE
== END 2019-08-06 11:58 | disposition home or self-care (01) ==
LOC: ERS 21:59 → 2SW 23:34
PROVIDERS: ADMIT Internal Medicine; ATTEND Internal Medicine
DX: R00.2 Palpitations (principal); R07.89 Other chest pain; I48.0 Paroxysmal atrial fibrillation; I11.0 Hypertensive heart disease with heart failure; I50.33 Acute on chronic diastolic (congestive) heart failure; E78.5 Hyperlipidemia, unspecified; I25.10 Atherosclerotic heart disease of native coronary artery without angina pectoris; J44.9 Chronic obstructive pulmonary disease, unspecified; E78.00 Pure hypercholesterolemia, unspecified; E87.1 Hypo-osmolality and hyponatremia; I08.8 Other rheumatic multiple valve diseases; R94.5 Abnormal results of liver function studies; Z79.01 Long term (current) use of anticoagulants; Z79.82 Long term (current) use of aspirin; Z79.899 Other long term (current) drug therapy; Z88.5 Allergy status to narcotic agent; Z90.2 Acquired absence of lung [part of]; Z95.1 Presence of aortocoronary bypass graft; Z95.2 Presence of prosthetic heart valve
CPT/HCPCS: 71045; 71275; 80053 ×2; 83735; 83880; 84484 ×3; 85025; 85379; 85610 ×3; 85730; 93005; 93306; 94640 ×3; 94760 ×2; 96365; 96366; 99285; G0378 ×4; 36415; 81003; 81015; 84443; J3475; Q9967

== ENCOUNTER 2020-04-24 10:26 | Outpatient (CLI) | payer MEDICARE, BC ==
--- NOTE | 2020-04-24 10:40 | RAD ---
EXAM: Chest PA and lateral: HISTORY: Dyspnea COMPARISON: 08/03/2019 FINDINGS: Borderline cardiomegaly postop sternotomy change and prosthetic heart valve again noted. Vascular mar kings within normal range. No evidence of infiltrate or effusion. Prominent aortic calcification again noted. Apical pleural thickening is stable. Osseous structures are unremarkable. IMPRESSION: No acute finding
== END 2020-04-24 10:27 | disposition home or self-care (01) ==
LOC: BICRAD 10:26
PROVIDERS: ATTEND Internal Medicine Pulmonary Disease
DX: R06.00 Dyspnea, unspecified (principal)
CPT/HCPCS: 71046

== ENCOUNTER 2020-09-30 08:18 | Outpatient (CLI) | payer MEDICARE, BC | END 2020-09-30 08:19 | disposition home or self-care (01) | LOC: BICULT 08:18 | PROVIDERS: ATTEND Nurse Practitioner Family | DX: C34.90 Malignant neoplasm of unspecified part of unspecified bronchus or lung (principal); D53.9 Nutritional anemia, unspecified; D72.9 Disorder of white blood cells, unspecified; E78.2 Mixed hyperlipidemia; I35.0 Nonrheumatic aortic (valve) stenosis; I50.33 Acute on chronic diastolic (congestive) heart failure; J44.9 Chronic obstructive pulmonary disease, unspecified; E55.9 Vitamin D deficiency, unspecified; K21.9 Gastro-esophageal reflux disease without esophagitis; I48.0 Paroxysmal atrial fibrillation; Z85.118 Personal history of other malignant neoplasm of bronchus and lung | CPT/HCPCS: 93975 ==

== ENCOUNTER 2020-12-11 23:12 | Emergency (ER) | payer MEDICARE, BC ==
[2020-12-11 23:46] LABS: #Basophils 0.1 thou/uL (0.0-0.2); #Eosinphils 0.2 thou/uL (0.0-0.7); #Lymphocytes 1.4 thou/uL (1.20-3.40); #Monocytes 0.7 thou/uL (0.11-0.59); #Neutrophils 5.7 thou/uL (1.40-6.50); %Eosinophils 3.1 % (0.0-10.0); %Lymphocytes 17.1 % (21.0-51.0); %Monocytes 8.5 % (0.0-10.0); %Neutrophils 70.4 % (42.0-75.0); Mean Corpuscular HGB CONC 33.3 g/dL (32.0-36.0); Mean Corpuscular Hemoglobin 32.9 pg (27.0-31.0); Mean Corpuscular Volume 98.9 fL (78.0-98.0); Mean Platelet Volume 6.2 fL (7.4-10.4); Platelet Count 495 thou/uL (130-400); RBC Distribution Width 14.1 % (11.5-14.5); Red Blood Cell (RBC) Count 3.94 mill/uL (4.20-5.40); White Blood Cell (WBC) Count 8.1 thou/uL (4.8-10.8)
[2020-12-12] MEDS ORDERED: Acetaminophen 325 MG TAB ONE (00:05)
[2020-12-12] MEDS ORDERED: Meclizine HCl 25 MG TAB ONE (00:05)
[2020-12-12 00:07] LABS: INR-International Normal Ratio 1.8; Prothrombin Time 20.7 sec (12.0-14.7)
[2020-12-12 00:08] LABS: PTT 37.3 sec (22.9-36.1)
[2020-12-12 00:08] LABS: ALT (SGPT) 22 U/L (8-55); AST (SGOT) 35 U/L (5-34); Albumin 3.8 g/dL (3.4-4.8); Alkaline Phosphatase 111 U/L (40-110); Anion Gap 17 mmol/L (10-20); BUN (Urea Nitrogen) 27 mg/dL (9.8-20.1); Bilirubin, Total 1.4 mg/dL (0.2-1.2); Calc. Creatinine Clearance 0 mL/min (70-130); Calcium 9.1 mg/dL (7.8-10.44); Carbon Dioxide 23 mmol/L (23-31); Chloride 102 mmol/L (98-107); Globulin 3.3 g/dL (2.4-3.5); Glucose 109 mg/dL (83-110); Potassium 3.7 mmol/L (3.5-5.1); Protein, Total 7.1 g/dL (5.8-8.1); Sodium 138 mmol/L (136-145)
[2020-12-12 02:05] LABS: Bacteria/HPF None Seen HPF (None Seen); Bilirubin Negative (Negative); Blood, Urine Negative (Negative); Clarity Clear (Clear); Glucose, Urine (Dipstick) Normal (Negative); Ketone, Urine Negative (Negative); Leukocyte 250 Leu/uL (Negative); Nitrite Negative (Negative); Protein, Urine (Dipstick) 30 mg/dL (Neg-Trace); RBC/HPF 0-3 HPF (0-3); Specific Gravity, Urine 1.017 (1.002-1.036); Squamous Epithelial 0-3 HPF (0-3); Urobilinogen 3 mg/dL (Less than 2); WBC/HPF 21-50 HPF (0-3); pH, Urine 6.5 (5.0-9.0)
== END 2020-12-12 02:22 | disposition home or self-care (01) ==
LOC: ERS 23:12
DX: N39.0 Urinary tract infection, site not specified (principal); R42 Dizziness and giddiness; E78.5 Hyperlipidemia, unspecified; I10 Essential (primary) hypertension
CPT/HCPCS: 36415; 70450; 71045; 80053; 81003; 81015; 83880; 84484; 85025; 85610; 85730; 93005; 94760

== ENCOUNTER 2021-02-16 11:41 | Outpatient (CLI) | payer MEDICARE, BC | END 2021-02-16 11:42 | disposition home or self-care (01) | LOC: BICRAD 11:41 | PROVIDERS: ATTEND Internal Medicine Pulmonary Disease | DX: R06.00 Dyspnea, unspecified (principal); I51.7 Cardiomegaly | CPT/HCPCS: 71046 ==

== ENCOUNTER 2021-09-28 08:21 | Outpatient (CLI) | payer MEDICARE, BC | END 2021-09-28 08:22 | disposition home or self-care (01) | LOC: ULT 08:21 | PROVIDERS: ATTEND Nurse Practitioner Family | DX: R79.89 Other specified abnormal findings of blood chemistry (principal) | CPT/HCPCS: 76700 ==